=== PATIENT | female | born 1960 ===

== ENCOUNTER 2017-02-07 20:16 | Inpatient (IN) | payer MEDICAID ==
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
[2017-02-07] MEDS ORDERED: NS 1,000 ML IV ONE ×2 (20:45→22:21)
[2017-02-07] MEDS ORDERED: VANCOMYCIN HCL/NORMAL SALINE 250 ML IV ONE (21:20)
[2017-02-07] MEDS ORDERED: PIPERACILLIN/TAZO 4.5 GM/DEX 100 ML IV ONE (21:20)
--- NOTE | 2017-02-07 21:24 | CPEKG ---
Heart Rate: 83 RR Interval: 723 P-R Interval: 146 QRSD Interval: 88 QT Interval: 436 QTC Interval: 513 P [place]: 0 QRS [place]: 53 T Wave [place]: -85 EKG Severity - ABNORMAL ECG - EKG Impression: SINUS RHYTHM EKG Impression: REPOL ABNRM SUGGESTS ISCHEMIA, ANT-LAT LEADS EKG Impression: PROLONGED QT INTERVAL Electronically Signed By: Nakul Joseph 07-Feb-2017 22:55:14
[2017-02-07 21:29] LABS: % IMMATURE GRANULYOCYTES 0.6 % (0.0-1.1); ABSOLUTE IMMATURE GRANULOCYTES 0.11 10^3/uL (0.00-0.10); ADD DIFF? NO; ADD MORPH? NO; ADD SCAN? NO; ATYPICAL LYMPHOCYTE FLAG 10 (0-99); FRAGMENT RBC FLAG 0 (0-99); HEMATOCRIT 30.2 % (38.0-47.0); HEMOGLOBIN 9.8 g/dL (12.6-16.3); LEFT SHIFT FLG 10 (0-99); LIPEMIA HEMOLYSIS FLAG 80 (0-99); MEAN CELL HEMOGLOBIN 27.9 pg (27.9-34.1); MEAN CELL HEMOGLOBIN CONCENTR. 32.5 g/dL (32.4-36.7); MEAN PLATELET VOLUME 9.4 fL (8.7-11.7); PLATELET CLUMPS FLAG 20 (0-99); PLATELET COUNT 654 10^3/uL (150-400); RED BLOOD CELL COUNT 3.51 10^6/uL (4.18-5.33); RED CELL DISTRIBUTION WIDTH 14.6 % (11.5-15.2)
[2017-02-07 21:38] LABS: INR 1.47 (0.83-1.16); PROTIME(PATIENT) 17.8 SEC (12.0-15.0)
[2017-02-07 21:45] LABS: APTT 24.1 SEC (23.0-38.0)
[2017-02-07 21:47] LABS: ALANINE AMINOTRANSFERASE 42 IU/L (9-52); ALKALINE PHOSPHATASE 147 IU/L (38-126); ASPARTATE AMINOTRANSFERASE 33 IU/L (14-46); BILIRUBIN,TOTAL 1.1 mg/dL (0.1-1.4); BILIRUBIN-CONJUGATED 0.8 mg/dL (0.0-0.5); BILIRUBIN-UNCONJUGATED 0.3 mg/dL (0.0-1.1); CALCIUM 9.7 mg/dL (8.5-10.4); CARBON DIOXIDE 31 mEq/l (22-31); CHLORIDE 94 mEq/L (97-110); CREATININE 0.5 mg/dL (0.6-1.0); GLOMERULAR FILTRATION RATE > 60; GLUCOSE 101 mg/dL (70-100); MAGNESIUM 2.1 mg/dL (1.6-2.3); SODIUM 143 mEq/L (134-144); TOTAL PROTEIN 7.6 g/dL (6.3-8.2)
[2017-02-07 21:53] LABS: ANION GAP 18 mEq/L (8-16)
[2017-02-07 21:55] LABS: COLOR AMBER; LEUKOCYTE ESTERASE,URINE 3+ (NEGATIVE); NITRITE,URINE NEGATIVE (NEGATIVE)
[2017-02-07 21:59] LABS: TROPONIN I < 0.012 ng/mL (0-0.034)
[2017-02-07 22:00] LABS: POTASSIUM 2.4 mEq/L (3.5-5.2)
[2017-02-07 22:08] LABS: MUCUS 1+ /lpf (NONE-1+); WBC,URINE 50-182 /hpf (0-3)
[2017-02-07 22:15] LABS: BACTERIA 3+ /hpf (NONE SEEN)
[2017-02-07] MEDS ORDERED: PANTOPRAZOLE SODIUM 40 MG in NS 100 ML IV ONE (22:31)
[2017-02-07] MEDS: POTASSIUM Cl (KCl) 100 ML IV SCH (22:48)
[2017-02-07] MEDS ORDERED: ACETAMINOPHEN 325 MG TAB TUBE PRN (22:58)
[2017-02-07] MEDS ORDERED: clonazePAM 1 MG TAB TUBE PRN (22:58)
[2017-02-07] MEDS ORDERED: oxyCODONE IR 5 MG TAB TUBE PRN (22:58)
[2017-02-07] MEDS ORDERED: hydrOXYzine HCL 25 MG TAB TUBE PRN (22:58)
[2017-02-07] MEDS ORDERED: ONDANSETRON DISINTEGRATING 4 MG TAB TUBE PRN (22:58)
[2017-02-07] MEDS ORDERED: POTASSIUM CL 20 MEQ/15 ML UDCUP TUBE ONE (23:03)
[2017-02-07] MEDS ORDERED: IOPAMIDOL (ISOVUE 370) 100 ML BTL IV ONE (23:18)
[2017-02-08] MEDS: oxyCODONE IR 5 MG TAB TUBE SCH ×4 (00:17→21:53)
[2017-02-08] MEDS: CYCLOBENZAPRINE 10 MG TAB TUBE SCH ×2 (00:17→21:53)
[2017-02-08] MEDS: POTASSIUM Cl (KCl) 100 ML IV SCH ×2 (00:20→00:22)
[2017-02-08] MEDS: POTASSIUM Cl (KCl) 40 MEQ in NS 1,000 ML IV SCH ×3 (01:38→18:42)
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
[2017-02-08] MEDS: PIPERACILLIN/TAZO 4.5 GM/DEX 100 ML IV SCH ×3 (03:59→18:44)
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
[2017-02-08 06:00] LABS: INR 1.55 (0.83-1.16); PROTIME(PATIENT) 18.6 SEC (12.0-15.0)
[2017-02-08 06:05] LABS: % IMMATURE GRANULYOCYTES 0.8 % (0.0-1.1); ADD DIFF? NO; ADD MORPH? NO; ADD SCAN? NO; ATYPICAL LYMPHOCYTE FLAG 10 (0-99); FRAGMENT RBC FLAG 0 (0-99); HEMOGLOBIN 7.7 g/dL (12.6-16.3); LEFT SHIFT FLG 0 (0-99); LIPEMIA HEMOLYSIS FLAG 80 (0-99); MEAN CELL HEMOGLOBIN 27.9 pg (27.9-34.1); MEAN CELL HEMOGLOBIN CONCENTR. 32.1 g/dL (32.4-36.7); MEAN PLATELET VOLUME 9.4 fL (8.7-11.7); PLATELET CLUMPS FLAG 0 (0-99); PLATELET COUNT 480 10^3/uL (150-400); RED BLOOD CELL COUNT 2.76 10^6/uL (4.18-5.33); RED CELL DISTRIBUTION WIDTH 14.8 % (11.5-15.2)
[2017-02-08 06:10] LABS: ANION GAP 11 mEq/L (8-16); CALCIUM 8.3 mg/dL (8.5-10.4); CARBON DIOXIDE 26 mEq/l (22-31); CHLORIDE 106 mEq/L (97-110); CREATININE 0.6 mg/dL (0.6-1.0); GLOMERULAR FILTRATION RATE > 60; GLUCOSE 88 mg/dL (70-100); MAGNESIUM 1.9 mg/dL (1.6-2.3); SODIUM 143 mEq/L (134-144)
[2017-02-08 06:13] LABS: POTASSIUM 2.7 mEq/L (3.5-5.2)
[2017-02-08 06:20] LABS: % SATURATION 15 % (20-55); TOTAL IRON BINDING CAPACITY 203 ug/dL (260-490)
[2017-02-08] MEDS ORDERED: POTASSIUM CL 20 MEQ/15 ML UDCUP PO ONE (06:28)
[2017-02-08] MEDS: hydrOXYzine HCL 25 MG TAB TUBE SCH (08:29)
[2017-02-08] MEDS: PANTOPRAZOLE SODIUM 40 MG in NS 100 ML IV SCH ×2 (08:40→21:54)
[2017-02-08] MEDS: FLUTICASONE HFA 44 MCG MDI IH SCH ×2 (09:21→21:46)
[2017-02-08] MEDS: ENOXAPARIN 40 MG/0.4 ML SYR SC SCH (09:24)
[2017-02-08] MEDS: fentaNYL 75 MCG PATCH TD SCH (09:25)
[2017-02-08] MEDS: POLYETHYLENE GLYCOL 3350 17 GM PKT TUBE SCH ×2 (10:42→20:06)
--- NOTE | 2017-02-08 11:07 | WOCRNPDOC ---
DENY Advanced Assessment Note - Skin Integrity Problem, Advanced Assess Left Posterior Knee Scab Dressing Type: Allevyn Life Dressing Description: Clean/Dry, Intact Exudate Amount: Scant Exudate Color: Reddish/Yellow Exudate Characteristic(s): Serosanguinous Integumentary Issue Intervention: Visualized Under Dressing Lesley Wound Tissue: Intact Lesley Wound Swelling: None Wound Bed Color: Brown, Red Wound Bed Constitution: Smooth Tissue, Scab Site Measurement - Head-to-Toe Length X Width X Depth (cm): [id number] Skin Integrity Problem Comment: Linear abrasion noted to back of L knee, w/ 0.2cmx0.2cm area on lateral aspect of full-thickness injury, smooth-tissue filled, no apparent necrosis. Lesley-wound skin is intact w/ no erythema or associated swelling. Recommend applying Silvasorb gel and keeping site covered w / Allevyn. Left Abdomen Drain Site Dressing Type: ABD Pad, Gauze, Other Other Dressing Type: drain sponge Dressing Description: Saturated Exudate Amount: Excessive Exudate Color: Green, Reddish/Yellow Exudate Characteristic(s): Mucous, Serosanguinous, Thick, Other Other Exudate Characteristic(s): gastric Integumentary Issue Intervention: Barrier Cream Applied (crust w/ zinc oxide and skin prep) Lesley Wound Tissue: Raw, Denuded, Painful/Tender Lesley Wound Swelling: Mild Wound Bed Color: Red Skin Integrity Problem Comment: Intensely raw and denuded skin noted surrounding PEG tube and extending across patient's L abdomen to her L flank, consistent w/ breakdown r/t gastric contents from leaking PEG tube. Patient's tube was previously not well-secured, and upon admission external bumper was observed approx. 5 inches from skin level. This caused extensive leakage surrounding the tube onto lesley-tube skin. Tube was changed by Dr. Ewing on 02/06 , and external bumper was secured against the skin at that time. This author assessed patient this morning, cleansed skin, and applied a crust of zinc oxide powder and skin prep to act as a barrier from any additional gastric drainage. In addition, Drawtex dressing placed between PEG external bumper and skin for increased absorption, followed by ABD to prevent patient from pulling on the PEG. Wound RN will continue to follow patient. Report given to Dr. Ewing and coupon clerk Daxa.
--- NOTE | 2017-02-08 11:16 | SOAPPROG ---
SOAP Progress Note Assessment/Plan: 02/08/17 11:06 F/U consult Assessment: skin is scaring down around new(smaller) PEG tube as expected. Again the wafer was pulled away from the skin allowing leakage. Wound care has used a zinc product to protect the skin. There was a large amount of drainage from preperitoneal/abdominal wall abscess last night with PEG tube change and a smaller amount drained this AM. I could not express any more at this time. Wafer repositioned. I expect the PEG tube site to scar down around smaller tube over the next few days. Plan: Keep wafer against the abdominal wal to prevent leakage of gastric contents. Use abdominal binder to prevent her from manipulating the PEG tube. Consider use of a heating pad. (45 min, 4x/day). Consider F/u sono to gauge resolution in 48 hours. Subjective: non-communicative but tender at PEG tube site Objective: Vital Signs Temp Pulse Resp BP Pulse Ox 36.8 C 78 18 165/71 H 96 02/08/17 08:03 02/08/17 08:03 02/08/17 08:03 02/08/17 08:03 02/08/17 08:03 Microbiology 02/08/17 02:40 Gram Stain - Final Abdomen - Swab Laboratory Results 02/08/17 05:30 02/08/17 05:30 02/07/17 02/08/17 02/09/17 05:59 05:59 05:59 Intake Total 3040 Output Total 370 Balance 2670 PT 18.6 SEC (12.0-15.0) H 02/08/17 05:30 INR 1.55 (0.83-1.16) H 02/08/17 05:30 - Time Spent With Patient Time Spent With Patient: 25 Physical Exam - Physical Exam Abdomen: other (PEG tube site smaller in diameter with new tube. Could not express any further purulent fluid. Inflamed skin looks better with topical barrier TX.) ICD10 Worksheet Patient Problems: Problems Problem Status Onset Dehydration Acute Hypokalemia Acute Hypoxia Acute Open abdominal wall wound Acute PEG tube malfunction Acute Pneumonia Acute UTI (urinary tract infection) Acute
[2017-02-08] MEDS: POTASSIUM CL 20 MEQ/15 ML UDCUP TUBE SCH (12:06)
[2017-02-08 12:50] LABS: HEMATOCRIT 23.9 % (38.0-47.0); HEMOGLOBIN 7.7 g/dL (12.6-16.3)
[2017-02-08] MEDS: HYDROmorphONE/DILAUDID 2 MG/ML INJ IVP PRN ×2 (13:51→21:54)
[2017-02-08] MEDS: ONDANSETRON 4 MG/2 ML VIAL IVP PRN (13:56)
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
--- NOTE | 2017-02-08 15:58 | HOSPPROG ---
Hospitalist Progress Note Assessment/Plan: this is a 56-year-old female new to my care on 02/02 presenting with abdominal pain found to have: #Intra-abdominal abscess. - I discussed case with Dr. Ewing who changed her PEG tube and is not recommending any further debridement of the abscess this time - will continue IV antibiotics # Possible aspiration and Healthcare associated pneumonia. - swallow study ordered - continue vancomycin and Zosyn for now # Possible catheter associated urinary tract infection. Present on admission, evidenced by positive urinalysis with indwelling Tompkins catheter placing her at high risk - antibiotics as per above - follow up cultures # Severe protein calorie malnutrition. With low BMI of 17.6, patient meets aspirin criteria with proximal muscle wasting - dietary consult placed with tube feeds to be adjusted #Hypokalemia. Severe, most likely secondary to leakage from the stomach of tube feeds - replete with IV fluids, as well as liquid potassium, monitor daily magnesium and potassium levels 6. 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 Anemia. Most likely an element of chronic inflammatory disease although GI blood loss is certainly possible given the above - IV PPI twice daily - send iron studies in a.m. - continue monitor hemoglobin level Diet. Tube feeds Prophylaxis. High risk patient, Lovenox 40 Code. Do not resuscitate per advanced directive, Dr. Joseph discussed goals of care with patient's family and they elected to have IV fluids and IV antibiotics but no additional interventions at this time Disposition. Anticipated discharge uncertain this time, anticipated length stay is greater than 48 hours warranting inpatient admission status for highly complex medical issues including possible aspiration pneumonia with acute intra- abdominal abscess. Subjective: reports abdominal pain Objective: Vital Signs Temp Pulse Resp BP Pulse Ox 37.1 C 91 14 112/63 92 02/08/17 15:17 02/08/17 15:17 02/08/17 15:17 02/08/17 15:17 02/08/17 15:17 Microbiology 02/08/17 02:40 Gram Stain - Final Abdomen - Swab Laboratory Results 02/08/17 12:42 02/08/17 05:30 02/07/17 02/08/17 02/09/17 05:59 05:59 05:59 Intake Total 3040 310 Output Total 370 Balance 2670 310 PT 18.6 SEC (12.0-15.0) H 02/08/17 05:30 INR 1.55 (0.83-1.16) H 02/08/17 05:30 ct chest visualized and reviewed - Physical Exam Constitutional: chronically ill appearing, uncomfortable, unkempt, cachectic Cardiovascular: regular rate and rhythym, no murmur, rub, or gallop Respiratory: no respiratory distress, no rales or rhonchi, clear to auscultation Gastrointestinal: normoactive bowel sounds, tenderness, No guarding, No rebound ICD10 Worksheet Patient Problems: Problems Problem Status Onset Pneumonia Acute Dehydration Acute Hypoxia Acute PEG tube malfunction Acute Hypokalemia Acute Open abdominal wall wound Acute UTI (urinary tract infection) Acute
[2017-02-08] MEDS ORDERED: PROTOCOL POTASSIUM 1 DOSE MISC PRN (16:47)
[2017-02-08 18:42] LABS: POTASSIUM 4.2 mEq/L (3.5-5.2)
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
[2017-02-08] MEDS: traZODone 50 MG TAB TUBE SCH (21:54)
[2017-02-08] MEDS: VANCOMYCIN HCL/NORMAL SALINE 250 ML IV SCH (21:54)
[2017-02-09] MEDS: PIPERACILLIN/TAZO 4.5 GM/DEX 100 ML IV SCH ×4 (00:31→18:21)
[2017-02-09] MEDS: HYDROmorphONE/DILAUDID 2 MG/ML INJ IVP PRN (02:14)
[2017-02-09] MEDS: HALOPERIDOL LACT 5 MG/ML INJ IVP PRN (03:01)
[2017-02-09] MEDS: POTASSIUM Cl (KCl) 40 MEQ in NS 1,000 ML IV SCH ×2 (03:06→18:21)
[2017-02-09] MEDS: HYDROmorphONE/DILAUDID 1 MG/ML SYR IVP PRN ×3 (05:55→22:17)
[2017-02-09] MEDS: ONDANSETRON 4 MG/2 ML VIAL IVP PRN ×2 (05:57→10:47)
[2017-02-09 06:18] LABS: % IMMATURE GRANULYOCYTES 1.9 % (0.0-1.1); ABSOLUTE IMMATURE GRANULOCYTES 0.22 10^3/uL (0.00-0.10); ADD DIFF? NO; ADD MORPH? NO; ADD SCAN? NO; ATYPICAL LYMPHOCYTE FLAG 10 (0-99); FRAGMENT RBC FLAG 0 (0-99); HEMATOCRIT 23.6 % (38.0-47.0); HEMOGLOBIN 7.1 g/dL (12.6-16.3); LEFT SHIFT FLG 10 (0-99); LIPEMIA HEMOLYSIS FLAG 80 (0-99); MEAN CELL HEMOGLOBIN 27.7 pg (27.9-34.1); MEAN CELL HEMOGLOBIN CONCENTR. 30.1 g/dL (32.4-36.7); MEAN CELL VOLUME 92.2 fL (81.5-99.8); MEAN PLATELET VOLUME 9.2 fL (8.7-11.7); PLATELET CLUMPS FLAG 10 (0-99); PLATELET COUNT 434 10^3/uL (150-400); RED BLOOD CELL COUNT 2.56 10^6/uL (4.18-5.33); RED CELL DISTRIBUTION WIDTH 15.2 % (11.5-15.2)
[2017-02-09 06:58] LABS: ANION GAP 8 mEq/L (8-16); CALCIUM 8.6 mg/dL (8.5-10.4); CARBON DIOXIDE 19 mEq/l (22-31); CHLORIDE 119 mEq/L (97-110); CREATININE 0.5 mg/dL (0.6-1.0); GLOMERULAR FILTRATION RATE > 60; GLUCOSE 73 mg/dL (70-100); MAGNESIUM 1.9 mg/dL (1.6-2.3); POTASSIUM 4.9 mEq/L (3.5-5.2); SODIUM 146 mEq/L (134-144)
[2017-02-09] MEDS: PANTOPRAZOLE SODIUM 40 MG in NS 100 ML IV SCH ×2 (10:41→22:29)
[2017-02-09] MEDS: FLUTICASONE HFA 44 MCG MDI IH SCH ×3 (11:04→20:01)
[2017-02-09] MEDS: POTASSIUM CL 20 MEQ/15 ML UDCUP TUBE SCH (11:43)
[2017-02-09] MEDS: POLYETHYLENE GLYCOL 3350 17 GM PKT TUBE SCH ×2 (11:43→20:02)
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
--- NOTE | 2017-02-09 12:49 | PCMIDPN ---
Assessment/Plan: Assessment/Plan: 1. Intraabdominal abscess associated with PEG tube: - 1.8x 1.4x 1.2cm collection with phlegmon around peg tube. -Cultures still in progress. Thus far GS with yeast, and cultures with C. albicans now. -Currently on Vanco + zosyn empirically. - Will add anti-fungal coverage for now while cx in progress. Fluconazole with many DI and given her tbi injury, hesitate to use agent that may have increased shore hand dredge or barge side effects for now until more stable. -wbc slightly improved -blood cx ngtd 2. Possible Catheter associated UTI: -UA abnormal and now with greater than 100,000 GNR. - Currently on zosyn. Await cx data 3. HCAp/aspiration: - Ct chest with bilaterally lower lobe consolidation. -o2 viz nc at 3L -currently on empiric vanco + zosyn. Meds vanco 1g daily- zosyn 4.5gm q6 Subjective: Afebrile. somewhat disoriented. having some drainage around her peg tube. intially states no abd pain but not reliable historian. Objective: Vital Signs Temp Pulse Resp BP Pulse Ox 37.7 C 90 18 155/76 H 91 L 02/09/17 11:38 02/09/17 11:38 02/09/17 11:38 02/09/17 11:38 02/09/17 11:38 Microbiology 02/08/17 02:40 Gram Stain - Final Abdomen - Swab Laboratory Results 02/09/17 05:56 02/09/17 05:56 02/08/17 02/09/17 02/10/17 05:59 05:59 05:59 Intake Total 3040 4648 Output Total 370 1103 Balance 2670 3545 - Physical Exam General Appearance: alert, no apparent distress Respiratory: lungs clear Cardiac/Chest: regular rate, rhythm Extremities: No swelling Abdomen: normal bowel sounds, soft, distended (mild), tender, other (peg tube site with some maceration around it, and drainage from it. ) Skin: other (macerated around peg) ICD10 Worksheet Patient Problems: Problems Problem Status Onset Dehydration Acute Hypokalemia Acute Hypoxia Acute Open abdominal wall wound Acute PEG tube malfunction Acute Pneumonia Acute UTI (urinary tract infection) Acute
[2017-02-09] MEDS: oxyCODONE IR 5 MG TAB TUBE SCH ×3 (13:53→23:03)
[2017-02-09] MEDS: hydrOXYzine HCL 25 MG TAB TUBE SCH (13:53)
[2017-02-09] MEDS ORDERED: IOPAMIDOL (ISOVUE-300) 150 ML BTL ONE (15:42)
--- NOTE | 2017-02-09 15:46 | HOSPPROG ---
Hospitalist Progress Note Assessment/Plan: this is a 56-year-old female new to my care on 02/02 presenting with abdominal pain found to have: #Intra-abdominal abscess with nonfunctioning peg tube - will continue IV antibiotics -feeding tube per surgery # Possible aspiration and Healthcare associated pneumonia. - swallow study ordered - continue vancomycin and Zosyn for now # Possible catheter associated urinary tract infection with urine growing PSE - antibiotics as per above # Severe protein calorie malnutrition. With low BMI of 17.6, patient meets aspirin criteria with proximal muscle wasting - dietary consult placed with tube feeds to be adjusted #Hypokalemia. Severe, most likely secondary to leakage from the stomach of tube feeds - replete with IV fluids, as well as liquid potassium, monitor daily magnesium and potassium levels 6. 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 Anemia. Most likely an element of chronic inflammatory disease although GI blood loss is certainly possible given the above - IV PPI twice daily - send iron studies in a.m. - continue monitor hemoglobin level Diet. Tube feeds Prophylaxis. High risk patient, Lovenox 40 Code. Do not resuscitate per advanced directive, Dr. Joseph discussed goals of care with patient's family and they elected to have IV fluids and IV antibiotics but no additional interventions at this time Disposition. Anticipated discharge uncertain this time, anticipated length stay is greater than 48 hours warranting inpatient admission status for highly complex medical issues including possible aspiration pneumonia with acute intra- abdominal abscess. Subjective: pt is unable to answer questions Objective: Vital Signs Temp Pulse Resp BP Pulse Ox 37.7 C 90 18 155/76 H 91 L 02/09/17 11:38 02/09/17 11:38 02/09/17 11:38 02/09/17 11:38 02/09/17 11:38 Microbiology 02/08/17 02:40 Gram Stain - Final Abdomen - Swab Laboratory Results 02/09/17 05:56 02/09/17 05:56 02/08/17 02/09/17 02/10/17 05:59 05:59 05:59 Intake Total 3040 4648 Output Total 370 1103 850 Balance 2670 3545 -850 PT 18.6 SEC (12.0-15.0) H 02/08/17 05:30 INR 1.55 (0.83-1.16) H 02/08/17 05:30 - Physical Exam Constitutional: chronically ill appearing Cardiovascular: regular rate and rhythym, no murmur, rub, or gallop Respiratory: no respiratory distress, no rales or rhonchi, clear to auscultation Gastrointestinal: normoactive bowel sounds, distension, No guarding, No rebound Neurologic: other (aaox0) ICD10 Worksheet Patient Problems: Problems Problem Status Onset Pneumonia Acute Dehydration Acute Hypoxia Acute PEG tube malfunction Acute Hypokalemia Acute Open abdominal wall wound Acute UTI (urinary tract infection) Acute
[2017-02-09] MEDS: ENOXAPARIN 40 MG/0.4 ML SYR SC SCH (18:21)
[2017-02-09] MEDS: MICAFUNGIN NA 100 MG in NS 100 ML IV SCH (19:58)
[2017-02-09] MEDS: CYCLOBENZAPRINE 10 MG TAB TUBE SCH (20:36)
[2017-02-09] MEDS: traZODone 50 MG TAB TUBE SCH (20:36)
[2017-02-10] MEDS: VANCOMYCIN HCL/NORMAL SALINE 250 ML IV SCH (00:07)
[2017-02-10 01:22] LABS: POTASSIUM 4.5 mEq/L (3.5-5.2)
[2017-02-10] MEDS: PIPERACILLIN/TAZO 4.5 GM/DEX 100 ML IV SCH ×5 (02:23→23:09)
[2017-02-10 05:57] LABS: % IMMATURE GRANULYOCYTES 2.2 % (0.0-1.1); ABSOLUTE IMMATURE GRANULOCYTES 0.26 10^3/uL (0.00-0.10); ABSOLUTE NRBC COUNT 0.02 10^3/uL (0-0.01); ADD DIFF? NO; ADD MORPH? NO; ADD SCAN? NO; ATYPICAL LYMPHOCYTE FLAG 0 (0-99); FRAGMENT RBC FLAG 0 (0-99); HEMATOCRIT 23.7 % (38.0-47.0); HEMOGLOBIN 7.2 g/dL (12.6-16.3); LEFT SHIFT FLG 20 (0-99); LIPEMIA HEMOLYSIS FLAG 80 (0-99); MEAN CELL HEMOGLOBIN 27.6 pg (27.9-34.1); MEAN CELL HEMOGLOBIN CONCENTR. 30.4 g/dL (32.4-36.7); MEAN CELL VOLUME 90.8 fL (81.5-99.8); NRBC-AUTO% 0.2 % (0.0-0.2); PLATELET CLUMPS FLAG 0 (0-99); PLATELET COUNT 414 10^3/uL (150-400); RED BLOOD CELL COUNT 2.61 10^6/uL (4.18-5.33); RED CELL DISTRIBUTION WIDTH 15.2 % (11.5-15.2)
[2017-02-10 06:18] LABS: ANION GAP 11 mEq/L (8-16); CALCIUM 8.7 mg/dL (8.5-10.4); CARBON DIOXIDE 19 mEq/l (22-31); CHLORIDE 112 mEq/L (97-110); CREATININE 0.5 mg/dL (0.6-1.0); GLOMERULAR FILTRATION RATE > 60; GLUCOSE 74 mg/dL (70-100); MAGNESIUM 1.7 mg/dL (1.6-2.3); SODIUM 142 mEq/L (134-144)
[2017-02-10] MEDS: POLYETHYLENE GLYCOL 3350 17 GM PKT TUBE SCH (07:24)
[2017-02-10] MEDS: MICAFUNGIN NA 100 MG in NS 100 ML IV SCH (09:21)
[2017-02-10] MEDS: ENOXAPARIN 40 MG/0.4 ML SYR SC SCH (09:23)
[2017-02-10] MEDS: HYDROmorphONE/DILAUDID 1 MG/ML SYR IVP PRN (09:30)
--- NOTE | 2017-02-10 09:57 | WOCRNPDOC ---
WOCRN Advanced Assessment Note - Skin Integrity Problem, Advanced Assess Left Abdomen Drain Site Dressing Type: Other Other Dressing Type: Drawtex tube dressing Dressing Description: Intact Exudate Amount: Moderate Exudate Color: Yellow, Green, Reddish/Yellow Exudate Characteristic(s): Mucous, Serosanguinous, Other Other Exudate Characteristic(s): gastric Integumentary Issue Intervention: Visualized Under Dressing Michelle Wound Tissue: Raw, Weeping, Denuded, Painful/Tender Michelle Wound Swelling: Mild Wound Bed Color: Red Skin Integrity Problem Comment: Assessed PEG tube site w/ geospatial systems integratorADE Ledbetter, who reports that Dobhoff placed yesterday is not working/ leaking tube feed. Decreased leaking noted at PEG tube site this morning, though patient's enitre L abdomen and flank continues to be raw, denuded, and painful. Drawtex dressing around PEG is absorbing better that drain sponges used previously; will continue to use. Sprayed some Touchless Zinc to michelle-tube skin to cover denuded areas. Patient was clearly in pain when site was assessed, and geospatial systems integratorADE Ledbetter administered pain meds as ordered for comfort. Wound care will continue to monitor this michelle-tube breakdown, rounding again on Monday 02/12.
[2017-02-10] MEDS: PANTOPRAZOLE SODIUM 40 MG in NS 100 ML IV SCH ×2 (10:39→20:39)
[2017-02-10] MEDS: oxyCODONE IR 5 MG TAB TUBE SCH ×2 (10:53→16:48)
[2017-02-10] MEDS: hydrOXYzine HCL 25 MG TAB TUBE SCH (10:53)
[2017-02-10] MEDS: POTASSIUM CL 20 MEQ/15 ML UDCUP TUBE SCH (10:53)
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
--- NOTE | 2017-02-10 13:56 | HOSPPROG ---
Hospitalist Progress Note Assessment/Plan: This is a 56-year-old female new to my care on 02/08/17 presenting with abdominal pain found to have: #Intra-abdominal abscess with nonfunctioning peg tube - will continue IV antibiotics -will likely need a new peg tube. Dobhoff tube that was placed into the previous PEG tube is now clogged. Surgery is aware # Possible aspiration and Healthcare associated pneumonia. - swallow study ordered - continue vancomycin and Zosyn for now # Possible catheter associated urinary tract infection with urine growing PSE - antibiotics as per above # Severe protein calorie malnutrition. With low BMI of 17.6, patient meets aspirin criteria with proximal muscle wasting - dietary consult placed with tube feeds to be adjusted #Hypokalemia. 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 Most likely an element of chronic inflammatory disease although GI blood loss is certainly possible given the above - continue monitor hemoglobin level -will change protonix to daily Diet. Tube feeds Prophylaxis. High risk patient, Lovenox 40 Code. Do not resuscitate per advanced directive, Dr. Joseph discussed goals of care with patient's family and they elected to have IV fluids and IV antibiotics but no additional interventions at this time. Pt is high risk Disposition. Anticipated discharge uncertain this time, anticipated length stay is greater than 48 hours warranting inpatient admission status for highly complex medical issues including possible aspiration pneumonia with acute intra- abdominal abscess. Subjective: unable to answer questions Objective: Vital Signs Temp Pulse Resp BP Pulse Ox 37.7 C 75 18 171/80 H 98 02/10/17 12:00 02/10/17 12:00 02/10/17 12:00 02/10/17 13:20 02/10/17 12:00 Microbiology 02/08/17 02:40 Gram Stain - Final Abdomen - Swab Wound Culture - Final Kimberley Albicans Laboratory Results 02/10/17 05:33 02/10/17 05:33 02/09/17 02/10/17 02/11/17 05:59 05:59 05:59 Intake Total 4648 1084 0 Output Total 1103 1100 350 Balance 3545 -16 -350 PT 18.6 SEC (12.0-15.0) H 02/08/17 05:30 INR 1.55 (0.83-1.16) H 02/08/17 05:30 - Physical Exam Constitutional: chronically ill appearing Ears, Nose, Mouth, Throat: moist mucous membranes, ears appear normal, no oral mucosal ulcers Cardiovascular: regular rate and rhythym, no murmur, rub, or gallop Respiratory: no respiratory distress, no rales or rhonchi, clear to auscultation Gastrointestinal: normoactive bowel sounds, other (peg in place), No guarding, No rebound, No distension ICD10 Worksheet Patient Problems: Problems Problem Status Onset Pneumonia Acute Dehydration Acute Hypoxia Acute PEG tube malfunction Acute Hypokalemia Acute Open abdominal wall wound Acute UTI (urinary tract infection) Acute
[2017-02-10] MEDS: FLUTICASONE HFA 44 MCG MDI IH SCH ×2 (14:17→16:13)
--- NOTE | 2017-02-10 14:46 | PCMIDPN ---
Assessment/Plan: Patient completely refused exam, review of records & recs as below Patient with multiple possible infectious sources. Since admit, leukocytosis improving, AF since 02/08 # Intra-abdominal abscess (1.8x 1.4x 2cm with greater phlegmon measuring 8cm) with nonfunctioning peg tube, Cx of site shows kimberley --on micafungin (for concern of azole interaction with other meds) + high dose zosyn --likely needs Surgical intervention # Possible aspiration PNA, swallow study confirms aspiration --narrow antibiotics to zosyn alone # Possible catheter associated urinary tract infection with urine growing PsA --change brody if possible meds Zosyn 4.5gm IV q6h #2, Cr normal @ 0.5 micafungin 100mg IV daily #2 vancomycin 1gm IV daily #3 Subjective: "get out" Objective: Vital Signs Temp Pulse Resp BP Pulse Ox 37.7 C 75 18 171/80 H 98 02/10/17 12:00 02/10/17 12:00 02/10/17 12:00 02/10/17 13:20 02/10/17 12:00 Microbiology 02/08/17 02:40 Gram Stain - Final Abdomen - Swab Wound Culture - Final Kimberley Albicans Laboratory Results 02/10/17 05:33 02/10/17 05:33 02/09/17 02/10/17 02/11/17 05:59 05:59 05:59 Intake Total 4648 1084 0 Output Total 1103 1100 350 Balance 3545 -16 -350 - Physical Exam General Appearance: no apparent distress, cachetic ICD10 Worksheet Patient Problems: Problems Problem Status Onset Dehydration Acute Hypokalemia Acute Hypoxia Acute Open abdominal wall wound Acute PEG tube malfunction Acute Pneumonia Acute UTI (urinary tract infection) Acute
[2017-02-10] MEDS ORDERED: ACETAMINOPHEN 325 MG TAB PO PRN (16:36)
[2017-02-10] MEDS ORDERED: clonazePAM 1 MG TAB PO PRN (16:37)
[2017-02-10] MEDS ORDERED: hydrOXYzine HCL 25 MG TAB PO PRN (16:39)
[2017-02-10] MEDS ORDERED: ONDANSETRON DISINTEGRATING 4 MG TAB PO PRN (16:39)
[2017-02-10] MEDS ORDERED: oxyCODONE IR 5 MG TAB PO PRN (16:40)
[2017-02-10] MEDS: oxyCODONE IR 5 MG TAB PO SCH ×2 (17:13→22:35)
[2017-02-10 19:27] LABS: POTASSIUM 3.5 mEq/L (3.5-5.2)
[2017-02-10] MEDS: CYCLOBENZAPRINE 10 MG TAB PO SCH (20:38)
[2017-02-10] MEDS: traZODone 50 MG TAB PO SCH (20:39)
[2017-02-10] MEDS: POLYETHYLENE GLYCOL 3350 17 GM PKT PO SCH (20:39)
[2017-02-11] MEDS: HYDROmorphONE/DILAUDID 1 MG/ML SYR IVP PRN ×3 (00:19→22:42)
[2017-02-11] MEDS ORDERED: POTASSIUM CL 10 MEQ TAB PO ONE ×2 (01:07→07:33)
[2017-02-11 05:37] LABS: % IMMATURE GRANULYOCYTES 1.1 % (0.0-1.1); ABSOLUTE IMMATURE GRANULOCYTES 0.09 10^3/uL (0.00-0.10); ABSOLUTE NRBC COUNT 0.02 10^3/uL (0-0.01); ADD DIFF? NO; ADD MORPH? NO; ADD SCAN? NO; ATYPICAL LYMPHOCYTE FLAG 10 (0-99); FRAGMENT RBC FLAG 0 (0-99); HEMATOCRIT 26.1 % (38.0-47.0); HEMOGLOBIN 8.1 g/dL (12.6-16.3); LEFT SHIFT FLG 10 (0-99); LIPEMIA HEMOLYSIS FLAG 80 (0-99); MEAN CELL HEMOGLOBIN 27.5 pg (27.9-34.1); MEAN CELL VOLUME 88.5 fL (81.5-99.8); MEAN PLATELET VOLUME 8.8 fL (8.7-11.7); NRBC-AUTO% 0.2 % (0.0-0.2); PLATELET CLUMPS FLAG 0 (0-99); PLATELET COUNT 417 10^3/uL (150-400); RED BLOOD CELL COUNT 2.95 10^6/uL (4.18-5.33); RED CELL DISTRIBUTION WIDTH 15.1 % (11.5-15.2)
[2017-02-11] MEDS: PIPERACILLIN/TAZO 4.5 GM/DEX 100 ML IV SCH ×3 (05:37→19:54)
[2017-02-11 05:52] LABS: ANION GAP 11 mEq/L (8-16); CARBON DIOXIDE 22 mEq/l (22-31); CHLORIDE 106 mEq/L (97-110); CREATININE 0.6 mg/dL (0.6-1.0); GLOMERULAR FILTRATION RATE > 60; GLUCOSE 85 mg/dL (70-100); POTASSIUM 3.2 mEq/L (3.5-5.2); SODIUM 139 mEq/L (134-144)
[2017-02-11] MEDS: hydrOXYzine HCL 25 MG TAB PO SCH (09:28)
[2017-02-11] MEDS: oxyCODONE IR 5 MG TAB PO SCH ×3 (09:29→19:43)
[2017-02-11] MEDS: ENOXAPARIN 40 MG/0.4 ML SYR SC SCH ×2 (09:30→12:39)
[2017-02-11] MEDS: POTASSIUM CL 20 MEQ/15 ML UDCUP PO SCH (09:34)
[2017-02-11] MEDS: MICAFUNGIN NA 100 MG in NS 100 ML IV SCH (09:51)
[2017-02-11] MEDS: fentaNYL 75 MCG PATCH TD SCH (10:00)
[2017-02-11] MEDS: FLUTICASONE HFA 44 MCG MDI IH SCH ×2 (10:22→21:51)
[2017-02-11] MEDS: POLYETHYLENE GLYCOL 3350 17 GM PKT PO SCH ×2 (11:03→19:43)
[2017-02-11] MEDS: PANTOPRAZOLE SODIUM 40 MG in NS 100 ML IV SCH ×2 (12:29→21:30)
--- NOTE | 2017-02-11 13:11 | HOSPPROG ---
Hospitalist Progress Note Assessment/Plan: This is a 56-year-old female new to my care presenting with abdominal pain. Chart reviewed. D/W Dr Bowden. #Intra-abdominal abscess with nonfunctioning peg tube - will continue IV antibiotics -will likely need a new peg tube. Dobhoff tube that was placed into the previous PEG tube is now clogged. Surgery is aware # Possible aspiration and Healthcare associated pneumonia. - swallow study done, unsafe for unsupervised PO - continue Zosyn per ID # Possible catheter associated urinary tract infection with urine growing PSE - antibiotics as per above -order for cath to be changed # Severe protein calorie malnutrition. With low BMI of 17.6, - dietary consult unable to adjust tube feeds due to PEG tube blockage #Hypokalemia. 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 Most likely an element of chronic inflammatory disease although GI blood loss is certainly possible given the above - continue monitor hemoglobin level -will change protonix to daily Diet. Tube feeds Prophylaxis. High risk patient, Lovenox 40 Code. Do not resuscitate per advanced directive, Dr. Joseph discussed goals of care with patient's family and they elected to have IV fluids and IV antibiotics but no additional interventions at this time. Pt is high risk Disposition. Anticipated discharge uncertain this time, anticipated length stay is greater than 48 hours warranting inpatient admission status for highly complex medical issues including possible aspiration pneumonia with acute intra- abdominal abscess. Subjective: Minimal interaction. Confusion. Objective: Vital Signs Temp Pulse Resp BP Pulse Ox 37.1 C 68 14 155/79 H 98 02/11/17 11:58 02/11/17 11:58 02/11/17 11:58 02/11/17 11:58 02/11/17 11:58 Microbiology 02/08/17 02:40 Gram Stain - Final Abdomen - Swab Wound Culture - Final Kimberley Albicans Laboratory Results 02/11/17 05:19 02/11/17 05:19 02/10/17 02/11/17 02/12/17 05:59 05:59 05:59 Intake Total 1084 520 Output Total 1100 1300 Balance -16 -780 PT 18.6 SEC (12.0-15.0) H 02/08/17 05:30 INR 1.55 (0.83-1.16) H 02/08/17 05:30 - Physical Exam Constitutional: no apparent distress, not in pain, chronically ill appearing Eyes: PERRL, anicteric sclera, EOMI Ears, Nose, Mouth, Throat: moist mucous membranes, hearing normal, ears appear normal Cardiovascular: No JVD, No tachycardia, No edema Respiratory: no respiratory distress, no rales or rhonchi, reduced air movement Gastrointestinal: tenderness, No ascites, No guarding Skin: warm, no rashes or abrasions, No mottled Musculoskeletal: no joint effusions, pain with ROM, generalized weakness Neurologic: No AAOx3 Psychiatric: interacting appropriately, poor insight, poor judgement, No thought process linear ICD10 Worksheet Patient Problems: Problems Problem Status Onset Pneumonia Acute Dehydration Acute Hypoxia Acute PEG tube malfunction Acute Hypokalemia Acute Open abdominal wall wound Acute UTI (urinary tract infection) Acute
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
--- NOTE | 2017-02-11 15:48 | WOCRNPDOC ---
WOCRN Advanced Assessment Note - Skin Integrity Problem, Advanced Assess Left Abdomen Drain Site Dressing Type: Abdominal Pads, Dressing Sponge Dressing Description: Intact, Saturated Exudate Color: Clear, Yellow Exudate Characteristic(s): Mucous (gastic contents) Integumentary Issue Intervention: Dressing Changed Michelle Wound Tissue: Erythema, Raw, Denuded, Painful/Tender Michelle Wound Swelling: None Wound Bed Color: Bailey, Yellow Wound Bed Constitution: Smooth Tissue Skin Integrity Problem Comment: Patient presents with severely leaking peg tube. Michelle peg site is denuded with full thickness tissue loss to 1-2 cm circumferentially around the tube. The denuded area also dips down in a concave shape as it moves from the edges toward the tube. Drainage seems to be worse around the 4-5 oclock range as this is the most extensively denuded area. Patient will be going to the OR today or tomorrow for PEG tube replacement. In the interim the area directly adjacent to the peg tube/under the bumper, was cleaned with water and gauze, air dried, and then a layer of marathon was applied. The marathon has a blue hue. The left flank which had been coated with zinc oxide was not disturbed. Due to increased frequency of dressing changes drawtex will be substitued with dressing sponges until OR. Wound care will check on patient Monday 02/12. Daxa BOOKER was in room and assisted with care. Plan and findings discussed with Abby Beck Wound ADE.
[2017-02-11] MEDS ORDERED: NS 1,000 ML IV SCH (17:30)
[2017-02-11 19:21] LABS: POTASSIUM 3.8 mEq/L (3.5-5.2)
[2017-02-11] MEDS: traZODone 50 MG TAB PO SCH (19:43)
[2017-02-11] MEDS: CYCLOBENZAPRINE 10 MG TAB PO SCH (19:43)
[2017-02-11] MEDS: POTASSIUM Cl (KCl) 100 ML IV SCH (22:09)
[2017-02-12] MEDS: PIPERACILLIN/TAZO 4.5 GM/DEX 100 ML IV SCH ×4 (00:14→18:39)
[2017-02-12] MEDS: POTASSIUM Cl (KCl) 100 ML IV SCH ×5 (00:56→23:04)
[2017-02-12] MEDS: hydrALAZINE 20 MG/ML VIAL IVP PRN ×2 (01:25→14:38)
[2017-02-12] MEDS: HYDROmorphONE/DILAUDID 1 MG/ML SYR IVP PRN ×2 (03:00→16:20)
[2017-02-12 05:26] LABS: POTASSIUM 3.6 mEq/L (3.5-5.2)
[2017-02-12] MEDS: MICAFUNGIN NA 100 MG in NS 100 ML IV SCH (09:42)
[2017-02-12] MEDS: ENOXAPARIN 40 MG/0.4 ML SYR SC SCH (09:42)
[2017-02-12] MEDS: FLUTICASONE HFA 44 MCG MDI IH SCH ×2 (10:45→22:10)
--- NOTE | 2017-02-12 13:06 | HOSPPROG ---
Hospitalist Progress Note Assessment/Plan: This is a 56-year-old female new to my care presenting with abdominal pain. Chart reviewed. D/W Dr Hogan. #Intra-abdominal abscess with nonfunctioning peg tube -will continue IV antibiotics -possibly need a new peg tube. Surgery aware and holding off. -Dobhoff tube that was placed into the previous PEG tube is now clogged. Surgery is aware - mom consented for a new PEG if needed. # Possible aspiration and Healthcare associated pneumonia. - swallow study done, NPO - continue Zosyn per ID - change meds to IV # Possible catheter associated urinary tract infection with urine growing PSE - antibiotics as per above - cath changed # Severe protein calorie malnutrition. With low BMI of 17.6, - dietary consult unable to adjust tube feeds due to PEG tube blockage - TPN per surgery #Hypokalemia. 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 Most likely an element of chronic inflammatory disease although GI blood loss is certainly possible given the above - continue monitor hemoglobin level - protonix to daily Diet. NPO, TPN per surgery Prophylaxis. High risk patient, Lovenox 40 Code. Do not resuscitate per advanced directive, Dr. Joseph discussed goals of care with patient's family and they elected to have IV fluids and IV antibiotics but no additional interventions at this time. Pt is high risk Disposition. Anticipated discharge uncertain this time, anticipated length stay is greater than 48 hours warranting inpatient admission status for highly complex medical issues including possible aspiration pneumonia with acute intra- abdominal abscess. Subjective: Minimal interaction. Arousable. No issues. Objective: Vital Signs Temp Pulse Resp BP Pulse Ox 36.7 C 87 18 182/105 H 91 L 02/12/17 12:00 02/12/17 12:00 02/12/17 12:00 02/12/17 12:00 02/12/17 12:00 Laboratory Results 02/11/17 05:19 02/12/17 05:07 02/11/17 02/12/17 02/13/17 05:59 05:59 05:59 Intake Total 520 240 Output Total 1300 550 Balance -780 -310 PT 18.6 SEC (12.0-15.0) H 02/08/17 05:30 INR 1.55 (0.83-1.16) H 02/08/17 05:30 - Physical Exam Constitutional: not in pain, chronically ill appearing, cachectic Eyes: PERRL, anicteric sclera, EOMI Ears, Nose, Mouth, Throat: moist mucous membranes, hearing normal, ears appear normal Cardiovascular: No JVD, No tachycardia, No edema Respiratory: no respiratory distress, no rales or rhonchi, reduced air movement Gastrointestinal: tenderness, No ascites, No guarding Skin: warm, normal color, No mottled Musculoskeletal: no joint effusions, generalized weakness, No normal joint ROM Neurologic: No AAOx3 Psychiatric: not anxious, poor insight, poor judgement, poor memory, No thought process linear ICD10 Worksheet Patient Problems: Problems Problem Status Onset Pneumonia Acute Dehydration Acute Hypoxia Acute PEG tube malfunction Acute Hypokalemia Acute Open abdominal wall wound Acute UTI (urinary tract infection) Acute
[2017-02-12] MEDS: oxyCODONE IR 5 MG TAB PO SCH (14:46)
[2017-02-12] MEDS: hydrOXYzine HCL 25 MG TAB PO SCH (14:46)
[2017-02-12] MEDS: POLYETHYLENE GLYCOL 3350 17 GM PKT PO SCH (14:47)
[2017-02-12] MEDS: POTASSIUM CL 20 MEQ/15 ML UDCUP PO SCH (14:47)
[2017-02-12] MEDS: PANTOPRAZOLE SODIUM 40 MG in NS 100 ML IV SCH ×2 (15:37→20:10)
[2017-02-12] MEDS: LORazepam 2 MG/ML INJ IVP PRN (16:25)
[2017-02-12] MEDS ORDERED: ALTEPLASE 2 MG VIAL IVP PRN (16:54)
[2017-02-12] MEDS ORDERED: D10W 1,000 ML IV PRN (16:56)
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
[2017-02-12 19:13] LABS: POTASSIUM 3.6 mEq/L (3.5-5.2)
[2017-02-13] MEDS: PIPERACILLIN/TAZO 4.5 GM/DEX 100 ML IV SCH ×4 (00:19→17:43)
[2017-02-13] MEDS: POTASSIUM Cl (KCl) 100 ML IV SCH ×4 (00:37→23:03)
[2017-02-13] MEDS: LORazepam 2 MG/ML INJ IVP PRN ×4 (05:05→23:46)
[2017-02-13 06:32] LABS: % IMMATURE GRANULYOCYTES 1.1 % (0.0-1.1); ABSOLUTE IMMATURE GRANULOCYTES 0.06 10^3/uL (0.00-0.10); ADD DIFF? NO; ADD MORPH? NO; ADD SCAN? NO; ATYPICAL LYMPHOCYTE FLAG 0 (0-99); FRAGMENT RBC FLAG 0 (0-99); HEMATOCRIT 27.8 % (38.0-47.0); HEMOGLOBIN 8.7 g/dL (12.6-16.3); LEFT SHIFT FLG 10 (0-99); LIPEMIA HEMOLYSIS FLAG 80 (0-99); MEAN CELL HEMOGLOBIN 27.6 pg (27.9-34.1); MEAN CELL HEMOGLOBIN CONCENTR. 31.3 g/dL (32.4-36.7); MEAN CELL VOLUME 88.3 fL (81.5-99.8); MEAN PLATELET VOLUME 8.6 fL (8.7-11.7); PLATELET CLUMPS FLAG 0 (0-99); PLATELET COUNT 342 10^3/uL (150-400); RED BLOOD CELL COUNT 3.15 10^6/uL (4.18-5.33); RED CELL DISTRIBUTION WIDTH 15.9 % (11.5-15.2)
[2017-02-13 06:52] LABS: APTT 38.6 SEC (23.0-38.0); INR 1.46 (0.83-1.16); PROTIME(PATIENT) 17.7 SEC (12.0-15.0)
[2017-02-13 07:07] LABS: ALANINE AMINOTRANSFERASE 26 IU/L (9-52); ALBUMIN 2.6 g/dL (3.5-5.0); ALKALINE PHOSPHATASE 77 IU/L (38-126); ANION GAP 10 mEq/L (8-16); ASPARTATE AMINOTRANSFERASE 14 IU/L (14-46); BILIRUBIN,TOTAL 0.4 mg/dL (0.1-1.4); CALCIUM 8.8 mg/dL (8.5-10.4); CARBON DIOXIDE 19 mEq/l (22-31); CHLORIDE 106 mEq/L (97-110); CREATININE 0.5 mg/dL (0.6-1.0); GLOMERULAR FILTRATION RATE > 60; GLUCOSE 69 mg/dL (70-100); MAGNESIUM 1.5 mg/dL (1.6-2.3); SODIUM 135 mEq/L (134-144); TOTAL PROTEIN 5.5 g/dL (6.3-8.2)
[2017-02-13] MEDS ORDERED: D5W 1/2 NS 1,000 ML IV SCH (08:00)
[2017-02-13] MEDS ORDERED: ALTEPLASE 2 MG VIAL IVP PRN (08:31)
[2017-02-13] MEDS: PANTOPRAZOLE SODIUM 40 MG in NS 100 ML IV SCH ×2 (08:52→20:45)
[2017-02-13] MEDS: ENOXAPARIN 40 MG/0.4 ML SYR SC SCH (08:52)
--- NOTE | 2017-02-13 09:15 | PCMIDPN ---
Assessment/Plan: 1. Infected PEG tube site, query deeper infection with phlegmon noted on CT scan : Spoke at length with . At this point, she prefers a more conservative route with PICC line placement, and TPN to give the PEG a rest. She does not feel that placing the PEG at a different site at this point in time would necessarily be helpful. Therefore, will continue antibiotics as is. She will likely need a repeat CT scan in the next several days to evaluate the 8 cm phlegmon noted. 2. Complicated UTI secondary to Pseudomonas: The Tompkins has been replaced. Continue contact isolation for VRE, which is not being treated at this point in time given improvement without treatment. Subjective: No significant overnight events. Patient will need anesthesia for PICC line placement, as she is unable to fully extend her arm. This will happen today. Objective: Zosyn 4.5 g IV q.6 hours day 5 Micafungin 100 mg IV daily day 5 T-max 37.2degrees Vital Signs Temp Pulse Resp BP Pulse Ox 37.0 C 92 18 140/74 H 95 02/13/17 08:00 02/13/17 08:00 02/13/17 08:00 02/13/17 08:00 02/13/17 08:00 Laboratory Results 02/13/17 06:23 02/13/17 06:23 02/12/17 02/13/17 02/14/17 05:59 05:59 05:59 Intake Total 240 4320 Output Total 550 1625 Balance -310 -1625 4320 Blood culture negative Culture from around the PEG with Kimberley albicans Urine culture with Pseudomonas and VRE - Physical Exam General Appearance: alert, no apparent distress EENT: No scleral icterus, No thrush Respiratory: lungs clear Cardiac/Chest: regular rate, rhythm, No systolic murmur Abdomen: other (The skin around the PEG tube is mildly erythematous and macerated consistent with Kimberley. She has a fair amount of white cream coating the skin around that area. There is no fluctuance. Minimal tenderness. No erythema that I can appreciate.) Skin: No rash ICD10 Worksheet Patient Problems: Problems Problem Status Onset Dehydration Acute Hypokalemia Acute Hypoxia Acute Open abdominal wall wound Acute PEG tube malfunction Acute Pneumonia Acute UTI (urinary tract infection) Acute
[2017-02-13] MEDS: FLUTICASONE HFA 44 MCG MDI IH SCH ×2 (09:30→21:41)
--- NOTE | 2017-02-13 09:39 | HOSPPROG ---
Hospitalist Progress Note Assessment/Plan: This is a 56-year-old female new to my care presenting with abdominal pain. Today is my first encounter with the patient.Chart reviewed. D/W Dr Hogan & Dr Kam her care. # Infected PEG tube site with nonfunctioning peg tube - IV antibiotics/ Zosyn day #5, Micafungin day #5 - possibly needs a new peg tube. Holding off at this time/ Dr Hogan has ordered TPN and PICC - Dobbhoff tube that was placed into the previous PEG tube is now clogged. # Initial concern for possible aspiration and Healthcare associated pneumonia. - lung sounds CTA. On room air - swallow study done, NPO - change meds to IV # Complicated UTI secondary to pseudomass -Tompkins has been changed -contact isolation for VRE # Severe protein calorie malnutrition. With low BMI of 17.6, - TPN to be initiated today #Hypokalemia. 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 leticia - continue monitor hemoglobin level - protonix to daily # right lower ext fx cast in place not clear how long this has been present will try and contact patient's mother Diet. NPO, TPN per surgery Prophylaxis. High risk patient, Lovenox 40 Code. DNR Disposition. pending Plan: PICC to be placed/ give the peg a rest, likely need a repeat CT scan for further evaluation of phlegmon Subjective: Adia says it is tender when looking at skin around peg site. Objective: Vital Signs Temp Pulse Resp BP Pulse Ox 37.0 C 88 16 140/74 H 93 02/13/17 08:00 02/13/17 09:32 02/13/17 09:32 02/13/17 08:00 02/13/17 09:32 Laboratory Results 02/13/17 06:23 02/13/17 06:23 02/12/17 02/13/17 02/14/17 05:59 05:59 05:59 Intake Total 240 4320 Output Total 550 1625 Balance -310 -1625 4320 PT 17.7 SEC (12.0-15.0) H 02/13/17 06:23 INR 1.46 (0.83-1.16) H 02/13/17 06:23 - Physical Exam Constitutional: chronically ill appearing, uncomfortable, cachectic, No appears nourished, No not in pain Eyes: PERRL Ears, Nose, Mouth, Throat: hearing normal Cardiovascular: regular rate and rhythym Respiratory: no respiratory distress Gastrointestinal: normoactive bowel sounds Skin: warm, other (skin reddended, tender, excoriated aroung the peg site, has a small skin abrasion under left knee area, cast on rle) Musculoskeletal: muscular tenderness Neurologic: other (alert, difficulty w understanding her) ICD10 Worksheet Patient Problems: Problems Problem Status Onset Dehydration Acute Hypokalemia Acute Hypoxia Acute Open abdominal wall wound Acute PEG tube malfunction Acute Pneumonia Acute UTI (urinary tract infection) Acute
[2017-02-13] MEDS: MICAFUNGIN NA 100 MG in NS 100 ML IV SCH (10:10)
--- NOTE | 2017-02-13 12:29 | PDANEPAE ---
ANE History of Present Illness dehydration ANE Past Medical History - Cardiovascular History Hx Hypertension: No Hx Arrhythmias: No Hx Chest Pain: No - Pulmonary History Hx COPD: No Hx Asthma/Reactive Airway Disease: No Hx Recent Upper Respiratory Infection: No - Neurologic History Hx Cerebrovascular Accident: Yes - Endocrine History Hx Diabetes: No - Renal History Hx Renal Disorders: No - Liver History Hx Hepatic Disorders: No - Chronic Pain History Chronic Pain: Yes ANE Review of Systems - Exercise capacity Exercise capacity: limited by disability ANE Patient History - Allergies Allergies/Adverse Reactions: No Known Allergies Allergy (Unverified 02/07/17 20:39) - Home Medications Home Medications: Acetaminophen [Tylenol 325mg (*)] 650 mg TUBE Q6 PRN 02/07/17 [Last Taken Unknown] Amoxicillin/Clavulanate Pot [Augmentin 875 MG TAB (*)] 875 mg TUBE BID 02/07/17 [Last Taken 02/07/17 08:00] Cyclobenzaprine [Flexeril 10 MG (*)] 10 mg TUBE HS 02/07/17 [Last Taken 02/01/17 ] Fluticasone Hfa 44 Mcg [Flovent 44 MCG Hfa MDI (*)] 1 puffs IH BID 02/07/17 [ Last Taken 02/02/17] Ondansetron Odt [Zofran Odt 4 mg (*)] 4 mg TUBE Q6 PRN 02/07/17 [Last Taken Unknown] Polyethylene Glycol 3350 [Miralax 17 gm (*)] 17 gm TUBE BID 02/07/17 [Last Taken 02/02/17] clonazePAM [klonoPIN (*)] 1 mg TUBE BID PRN 02/07/17 [Last Taken Unknown] fentaNYL [Duragesic 75 MCG Patch (*)] 75 mcg TD Q72H 02/07/17 [Last Taken ] hydrOXYzine HCL [hydrOXYzine HCL (RX)] 25 mg TUBE DAILY 02/07/17 [Last Taken 02/13] hydrOXYzine HCL [hydrOXYzine HCL (RX)] 25 mg TUBE Q6H PRN 02/07/17 [Last Taken Unknown] oxyCODONE IR [Oxycodone Ir (*)] 10 mg TUBE DAILY PRN 02/07/17 [Last Taken Unknown] oxyCODONE IR [Oxycodone Ir (*)] 10 mg TUBE TID 02/07/17 [Last Taken 02/02/17] traZODone [traZODONE 50MG (*)] 50 mg TUBE HS 02/07/17 [Last Taken 02/01/17] - NPO status NPO Since - Liquids (Date): 02/12/17 NPO Since - Liquids (Time): 00:00 NPO Since - Solids (Date): 02/12/17 NPO Since - Solids (Time): 00:00 - Smoking Hx Smoking Status: Former smoker - Alcohol Use Alcohol Use: None ANE Labs/Vital Signs - Labs Result Diagrams: 02/13/17 06:23 02/13/17 06:23 - Vital Signs Blood Pressure: 140/74 Heart Rate: 88 Respiratory Rate: 16 O2 Sat (%): 93 Height: 152.4 cm Weight: 39.6 kg
[2017-02-13] MEDS ORDERED: LIDOCAINE 2% 5 ML SDV ONE (13:29)
[2017-02-13] MEDS ORDERED: fentaNYL 100 MCG/2 ML INJ ONE (13:29)
[2017-02-13] MEDS ORDERED: PROPOFOL 200 MG/20 ML VIAL ONE (13:29)
[2017-02-13] MEDS ORDERED: fentaNYL 100 MCG/2 ML INJ IVP PRN (14:23)
[2017-02-13] MEDS ORDERED: ALBUTEROL 3 ML DEYVIAL IH PRN (14:23)
[2017-02-13] MEDS ORDERED: NALOXONE HCL 0.4 MG/ML INJ IVP PRN (14:23)
--- NOTE | 2017-02-13 14:25 | POSTANESTH ---
Post Anesthetic Evaluation Cardiovascular Status: Normal, Stable Respiratory Status: Normal, Stable Level of Consciousness/Mental Status: Can Participate in Eval, Other, See Comment Pain Control: Adequate, Prn Tx Ordered Nausea/Vomiting Control: Adequate, Prn Tx Ordered Complications Possibly Related to Anesthesia: None Noted
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
[2017-02-13] MEDS: HYDROmorphONE/DILAUDID 1 MG/ML SYR IVP PRN ×2 (17:41→17:56)
[2017-02-13] MEDS: TPN 1 EA BAG IV SCH (20:53)
[2017-02-14] MEDS: PIPERACILLIN/TAZO 4.5 GM/DEX 100 ML IV SCH ×4 (00:11→17:32)
[2017-02-14] MEDS: POTASSIUM Cl (KCl) 100 ML IV SCH ×7 (01:19→23:07)
[2017-02-14] MEDS ORDERED: POTASSIUM Cl (KCl) 100 ML IV SCH (03:00)
[2017-02-14] MEDS: LORazepam 2 MG/ML INJ IVP PRN ×4 (03:57→19:51)
[2017-02-14 05:22] LABS: % IMMATURE GRANULYOCYTES 0.8 % (0.0-1.1); ABSOLUTE IMMATURE GRANULOCYTES 0.04 10^3/uL (0.00-0.10); ADD DIFF? NO; ADD MORPH? NO; ADD SCAN? NO; ATYPICAL LYMPHOCYTE FLAG 40 (0-99); FRAGMENT RBC FLAG 30 (0-99); HEMOGLOBIN 8.4 g/dL (12.6-16.3); LEFT SHIFT FLG 0 (0-99); LIPEMIA HEMOLYSIS FLAG 80 (0-99); MEAN CELL HEMOGLOBIN 28.2 pg (27.9-34.1); MEAN CELL HEMOGLOBIN CONCENTR. 32.3 g/dL (32.4-36.7); MEAN CELL VOLUME 87.2 fL (81.5-99.8); MEAN PLATELET VOLUME 8.7 fL (8.7-11.7); PLATELET CLUMPS FLAG 30 (0-99); PLATELET COUNT 440 10^3/uL (150-400); RED BLOOD CELL COUNT 2.98 10^6/uL (4.18-5.33); RED CELL DISTRIBUTION WIDTH 16.1 % (11.5-15.2)
[2017-02-14 05:35] LABS: ALANINE AMINOTRANSFERASE 25 IU/L (9-52); ALBUMIN 2.7 g/dL (3.5-5.0); ALKALINE PHOSPHATASE 78 IU/L (38-126); ANION GAP 8 mEq/L (8-16); ASPARTATE AMINOTRANSFERASE 16 IU/L (14-46); BILIRUBIN,TOTAL 0.5 mg/dL (0.1-1.4); CALCIUM 8.6 mg/dL (8.5-10.4); CARBON DIOXIDE 21 mEq/l (22-31); CHLORIDE 105 mEq/L (97-110); CREATININE 0.4 mg/dL (0.6-1.0); GLOMERULAR FILTRATION RATE > 60; GLUCOSE 126 mg/dL (70-100); MAGNESIUM 1.6 mg/dL (1.6-2.3); POTASSIUM 3.2 mEq/L (3.5-5.2); SODIUM 134 mEq/L (134-144); TOTAL PROTEIN 5.5 g/dL (6.3-8.2)
[2017-02-14 05:46] LABS: INR 1.3 (0.83-1.16); PROTIME(PATIENT) 16.2 SEC (12.0-15.0)
[2017-02-14 05:47] LABS: APTT 38.2 SEC (23.0-38.0)
[2017-02-14] MEDS: HYDROmorphONE/DILAUDID 1 MG/ML SYR IVP PRN ×2 (05:53→14:44)
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
[2017-02-14] MEDS: FLUTICASONE HFA 44 MCG MDI IH SCH ×2 (08:41→22:11)
[2017-02-14] MEDS: PANTOPRAZOLE SODIUM 40 MG in NS 100 ML IV SCH ×2 (09:16→20:28)
[2017-02-14] MEDS: NS 1,000 ML IV SCH (09:20)
[2017-02-14] MEDS: MICAFUNGIN NA 100 MG in NS 100 ML IV SCH (09:21)
[2017-02-14] MEDS: fentaNYL 75 MCG PATCH TD SCH (09:22)
[2017-02-14] MEDS: ENOXAPARIN 40 MG/0.4 ML SYR SC SCH (09:22)
--- NOTE | 2017-02-14 10:01 | HOSPPROG ---
Hospitalist Progress Note Assessment/Plan: This is a 56-year-old female new to my care presenting with abdominal pain. D/ W Dr Hogan & Dr Kam her care. # Infected PEG tube site/ (skin red and excoriated) with nonfunctioning peg tube - CT scan of abdomen on 02/07 shows abscess w surrounding phlegmon/ likely need a repeat CT of abd this week - IV antibiotics/ Zosyn day #6, Micafungin day #6 - possibly needs a new peg tube. Holding off at this time/ Dr Hogan has ordered TPN and PICC - Dobbhoff tube that was placed into the previous PEG tube is now clogged. - cont TPN (31 ml) and fluids (50 ml) # Initial concern for possible aspiration and Healthcare associated pneumonia. - lung sounds CTA. On room air - swallow study done, NPO - change meds to IV - repeat chest xray shows improvement # Complicated UTI secondary to pseudomass -Tompkins has been changed -contact isolation for VRE # Severe protein calorie malnutrition. With low BMI of 17.6, - TPN to be initiated today #Hypokalemia. 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 - continue monitor hemoglobin level - protonix to daily # right lower ext fx cast in place not clear how long this has been present Diet. NPO, TPN per surgery Prophylaxis. High risk patient, Lovenox 40 Code. DNR Disposition. pending Plan: avoid using G tube for now / to be further evaluated this week to see if it can be functional, cont TPN Subjective: Sheldon isn't complaining of pain. Objective: Vital Signs Temp Pulse Resp BP Pulse Ox 37.2 C 78 12 148/70 H 93 02/14/17 08:00 02/14/17 08:43 02/14/17 08:43 02/14/17 08:00 02/14/17 08:43 Laboratory Results 02/14/17 05:01 02/14/17 05:01 02/13/17 02/14/17 02/15/17 05:59 05:59 05:59 Intake Total 4420 1561 Output Total 1625 3400 Balance -1625 1020 1561 PT 16.2 SEC (12.0-15.0) H 02/14/17 05:01 INR 1.30 (0.83-1.16) H 02/14/17 05:01 - Physical Exam Constitutional: not in pain, chronically ill appearing, cachectic Eyes: PERRL Ears, Nose, Mouth, Throat: hearing normal Cardiovascular: regular rate and rhythym Respiratory: no respiratory distress, bronchial breath sounds (noted on anterior lung areas) Gastrointestinal: normoactive bowel sounds Skin: warm Musculoskeletal: generalized weakness Neurologic: other (alert, difficult to understand Sheldon when she speaks due to her head injury) Psychiatric: interacting appropriately ICD10 Worksheet Patient Problems: Problems Problem Status Onset Dehydration Acute Hypokalemia Acute Hypoxia Acute Open abdominal wall wound Acute PEG tube malfunction Acute Pneumonia Acute UTI (urinary tract infection) Acute
--- NOTE | 2017-02-14 10:07 | PCMIDPN ---
Assessment/Plan: 1. Infected PEG tube site, query deeper infection with phlegmon noted on CT scan : After discussion with yesterday, the following plan has been made: Patient is now on TPN after a PICC line was placed under anesthesia. Will not use the G-tube, and continue antibiotics for now with meticulous wound care in hopes of improving the infection/irritation. Dr. Hogan felt that the small pocket of fluid seen on CT most likely represented tube feed, and not abscess, per se. That being said, the patient will likely need a follow-up CT scan this week to further evaluate this area as well as the 8 cm phlegmon seen. Duration of antibiotics not clear, and will be based on clinical improvement/CT findings- perhaps 14 days. 2. Complicated UTI secondary to Pseudomonas: The Tompkins has been replaced. Continue contact isolation for VRE, which is not being treated at this point in time given clinical improvement. Subjective: No significant overnight events. Had a right PICC line placed under anesthesia yesterday. Nurse reports no diarrhea today, but did have 1 loose stool yesterday. Objective: Zosyn 4.5 g IV q.6 hours day 6 Micafungin 100 mg IV daily day 6 T-max 37 .4 Vital Signs Temp Pulse Resp BP Pulse Ox 37.2 C 78 12 148/70 H 93 02/14/17 08:00 02/14/17 08:43 02/14/17 08:43 02/14/17 08:00 02/14/17 08:43 Laboratory Results 02/14/17 05:01 02/14/17 05:01 02/13/17 02/14/17 02/15/17 05:59 05:59 05:59 Intake Total 4420 1561 Output Total 1625 3400 Balance -1625 1020 1561 No new microbiology - Physical Exam General Appearance: no apparent distress, cachetic EENT: pharynx normal, No thrush Respiratory: lungs clear Extremities: other (PICC line right upper extremity looks fine with no erythema or swelling.) Abdomen: other ( G-tube in place. Less erythema at the base. Has a fair amount of the zinc oxide on her abdomen, with some visible skin sloughing but no obvious erythema. No significant tenderness today, no fluctuance.) ICD10 Worksheet Patient Problems: Problems Problem Status Onset Dehydration Acute Hypokalemia Acute Hypoxia Acute Open abdominal wall wound Acute PEG tube malfunction Acute Pneumonia Acute UTI (urinary tract infection) Acute
[2017-02-14] MEDS: TPN 1 EA BAG IV SCH (20:28)
[2017-02-14] MEDS: HALOPERIDOL LACT 5 MG/ML INJ IVP PRN (22:20)
[2017-02-15] MEDS: POTASSIUM Cl (KCl) 100 ML IV SCH ×5 (00:12→15:07)
[2017-02-15] MEDS: PIPERACILLIN/TAZO 4.5 GM/DEX 100 ML IV SCH ×4 (01:36→17:49)
[2017-02-15 04:34] LABS: % IMMATURE GRANULYOCYTES 0.4 % (0.0-1.1); ABSOLUTE IMMATURE GRANULOCYTES 0.02 10^3/uL (0.00-0.10); ADD DIFF? NO; ADD MORPH? NO; ADD SCAN? NO; ATYPICAL LYMPHOCYTE FLAG 0 (0-99); FRAGMENT RBC FLAG 0 (0-99); HEMATOCRIT 27.3 % (38.0-47.0); HEMOGLOBIN 9.1 g/dL (12.6-16.3); LEFT SHIFT FLG 0 (0-99); LIPEMIA HEMOLYSIS FLAG 80 (0-99); MEAN CELL HEMOGLOBIN 30.1 pg (27.9-34.1); MEAN CELL HEMOGLOBIN CONCENTR. 33.3 g/dL (32.4-36.7); MEAN CELL VOLUME 90.4 fL (81.5-99.8); MEAN PLATELET VOLUME 9.2 fL (8.7-11.7); PLATELET CLUMPS FLAG 0 (0-99); PLATELET COUNT 365 10^3/uL (150-400); RED BLOOD CELL COUNT 3.02 10^6/uL (4.18-5.33); RED CELL DISTRIBUTION WIDTH 17.2 % (11.5-15.2)
[2017-02-15 04:41] LABS: INR 1.17 (0.83-1.16); PROTIME(PATIENT) 14.9 SEC (12.0-15.0)
[2017-02-15 04:42] LABS: APTT 35.3 SEC (23.0-38.0)
[2017-02-15 05:41] LABS: ALANINE AMINOTRANSFERASE 27 IU/L (9-52); ALBUMIN 2.7 g/dL (3.5-5.0); ALKALINE PHOSPHATASE 81 IU/L (38-126); ANION GAP 10 mEq/L (8-16); ASPARTATE AMINOTRANSFERASE 17 IU/L (14-46); BILIRUBIN,TOTAL 0.5 mg/dL (0.1-1.4); CALCIUM 8.7 mg/dL (8.5-10.4); CARBON DIOXIDE 22 mEq/l (22-31); CHLORIDE 106 mEq/L (97-110); CREATININE 0.4 mg/dL (0.6-1.0); GLOMERULAR FILTRATION RATE > 60; GLUCOSE 86 mg/dL (70-100); MAGNESIUM 1.7 mg/dL (1.6-2.3); POTASSIUM 3.8 mEq/L (3.5-5.2); SODIUM 138 mEq/L (134-144); TOTAL PROTEIN 5.9 g/dL (6.3-8.2); TRIGLYCERIDE 170 mg/dL (35-135)
--- NOTE | 2017-02-15 08:01 | WOCRNPDOC ---
DENY Advanced Assessment Note - Skin Integrity Problem, Advanced Assess Left Abdomen Drain Site Dressing Type: Dressing Sponge Dressing Description: Shadowed Exudate Amount: Minimal Exudate Color: Yellow, Green Exudate Characteristic(s): Clear, Stringy Integumentary Issue Intervention: Dressing Changed Michelle Wound Tissue: Erythema Wound Bed Constitution: Granulation Tissue (30%), Smooth Tissue (70%) Site Measurement - Head-to-Toe Length X Width X Depth (cm): 3 cm around 3 oclock , otherwise 1 cm circumferential to tube. Skin Integrity Problem Comment: Denuded michelle tube skin is improving slowly. Cleaning the area is much less painful for patient today. Area was cleaned with water and washcloth. Zinc oxide spray to area. Covered with drain sponge. Will increase frequency of care to TID to ensure sponge is changed out more frequently and drainage doesnt sit on skin/tissue. Jaime and Theodore RN's in room for care. Rounded two hours after initial assessment and drain sponge that had been placed was saturated and there was drainage spilling over onto patient's side. [place] was applied michelle drain site and drain sponge reapplied. Discussed possiblity of attempting to pouch site later today if drainage doesnt slow down. Will continue to communicate with staff. Left Medial Heel Pressure Injury Dressing Type: Open to Air Site Measurement - Head-to-Toe Length X Width X Depth (cm): 2x2x0 Pressure Injury Stage: Stage 1 Pressure Injury Present on Admit: No Skin Integrity Problem Comment: Heels not offloaded. This area was resting against hard cast. Offloading boots to be applied to bilateral feet at all times. Left Posterior Knee Scab Dressing Type: Open to Air Wound Bed Constitution: Healed
[2017-02-15] MEDS: PANTOPRAZOLE SODIUM 40 MG in NS 100 ML IV SCH ×2 (08:31→21:23)
[2017-02-15] MEDS: ENOXAPARIN 40 MG/0.4 ML SYR SC SCH (08:34)
--- NOTE | 2017-02-15 08:57 | HOSPPROG ---
Hospitalist Progress Note Assessment/Plan: This is a 56-year-old female presenting with abdominal pain. # abdominal wall cellulitis/phlegmon w G tube leakage (skin red and excoriated) with nonfunctioning peg tube - CT scan of abdomen on 02/07 shows abscess w surrounding phlegmon/ likely need a repeat CT of abd this week - IV antibiotics/ Zosyn day #8, Micafungin day #9 - possibly needs a new peg tube. Holding off at this time/ Dr Hogan has ordered TPN and PICC - Dobbhoff tube that was placed into the previous PEG tube is now clogged. - cont TPN (31 ml) and fluids (50 ml) # Initial concern for possible aspiration and Healthcare associated pneumonia. - lung sounds CTA. On room air - swallow study done, NPO - change meds to IV - repeat chest xray shows improvement # Complicated UTI secondary to pseudomass -Tompkins has been changed -contact isolation for VRE # Severe protein calorie malnutrition. With low BMI of 17.6, - TPN to be initiated today #Hypokalemia. 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 - continue monitor hemoglobin level - protonix to daily # right lower ext fx cast in place spoke to patient's mom/ is to be left in place till February 25 reviewed care with Jess[facility] nat instructor,/ concern for heel breakdown due to limited mobility Diet. NPO, TPN per surgery Prophylaxis. High risk patient, Lovenox 40 Code. DNR Disposition. pending Plan: avoid using G tube for now / to be further evaluated this week to see if it can be functional, cont TPN Subjective: Sheldon is more cooperative today, calmer, not c/o anything. Objective: Vital Signs Temp Pulse Resp BP Pulse Ox 36.3 C 76 16 154/87 H 98 02/15/17 08:00 02/15/17 08:00 02/15/17 08:00 02/15/17 08:00 02/15/17 08:00 Laboratory Results 02/15/17 04:00 02/15/17 05:05 02/14/17 02/15/17 02/16/17 05:59 05:59 05:59 Intake Total 4420 5187 Output Total 3400 3700 300 Balance 1020 1487 -300 PT 14.9 SEC (12.0-15.0) 02/15/17 04:00 INR 1.17 (0.83-1.16) H 02/15/17 04:00 - Physical Exam Constitutional: chronically ill appearing, cachectic Eyes: PERRL Ears, Nose, Mouth, Throat: hearing normal Cardiovascular: regular rate and rhythym Respiratory: no respiratory distress Gastrointestinal: normoactive bowel sounds, other (abd with dressing in place) Skin: warm, other (rle with cast in place) Musculoskeletal: generalized weakness Neurologic: other (alert, difficult to understand her) ICD10 Worksheet Patient Problems: Problems Problem Status Onset Dehydration Acute Hypokalemia Acute Hypoxia Acute Open abdominal wall wound Acute PEG tube malfunction Acute Pneumonia Acute UTI (urinary tract infection) Acute
[2017-02-15] MEDS: MICAFUNGIN NA 100 MG in NS 100 ML IV SCH (09:55)
--- NOTE | 2017-02-15 11:05 | PCMIDPN ---
Assessment/Plan: Assessment/Plan: * Abdominal wall cellulitis/phlegmon associated with G-tube leakage: Unclear if fluid collection represents abscess versus collection of tube feeds. Tube feeds now have been held in patient on TPN. Abdominal wall with resolving erythema. Continue micafungin and Zosyn with plans for repeat CT scan later this week to reassess status of abdominal wall findings. * Complicated UTI due to Pseudomonas aeruginosa: Present at time of admission with indwelling Tompkins catheter in place. Also grew VRE which is not being targeted given clinical improvement. At this point has completed adequate course of therapy although Zosyn will be continued for above abdominal wall findings. 02/15/17 11:02 Subjective: Continued leakage from around G-tube site. No longer receiving tube feeds, now on TPN. Objective: Vital Signs Temp Pulse Resp BP Pulse Ox 36.3 C 76 16 154/87 H 98 02/15/17 08:00 02/15/17 08:00 02/15/17 08:00 02/15/17 08:00 02/15/17 08:00 Laboratory Results 02/15/17 04:00 02/15/17 05:05 02/14/17 02/15/17 02/16/17 05:59 05:59 05:59 Intake Total 4420 5187 Output Total 3400 3700 300 Balance 1020 1487 -300 Zosyn # 7 Micafungin # 7 Laboratory Tests 02/15/17 05:05 Total Bilirubin 0.5 AST 17 ALT 27 Alkaline Phosphatase 81 Albumin 2.7 L - Physical Exam General Appearance: alert, thin, non-toxic EENT: other (Yellow coating on tongue) Extremities: No inflammation Abdomen: non-tender, other (With bilious leakage around G-tube site with maceration/erythema along left abdominal wall), No distended - Line/s RUE PICC Lines: No drainage, No erythema ICD10 Worksheet Patient Problems: Problems Problem Status Onset Dehydration Acute Hypokalemia Acute Hypoxia Acute Open abdominal wall wound Acute PEG tube malfunction Acute Pneumonia Acute UTI (urinary tract infection) Acute
[2017-02-15] MEDS: FLUTICASONE HFA 44 MCG MDI IH SCH ×2 (11:40→21:35)
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
[2017-02-15] MEDS: HYDROmorphONE/DILAUDID 1 MG/ML SYR IVP PRN ×3 (12:36→17:54)
[2017-02-15] MEDS: HALOPERIDOL LACT 5 MG/ML INJ IVP PRN (15:29)
[2017-02-15] MEDS: NS 1,000 ML IV SCH (17:53)
[2017-02-15] MEDS: TPN 1 EA BAG IV SCH (21:23)
[2017-02-16] MEDS: PIPERACILLIN/TAZO 4.5 GM/DEX 100 ML IV SCH ×4 (00:10→19:39)
[2017-02-16] MEDS: hydrALAZINE 20 MG/ML VIAL IVP PRN (02:04)
[2017-02-16] MEDS: LORazepam 2 MG/ML INJ IVP PRN ×2 (02:37→21:50)
[2017-02-16 06:16] LABS: POTASSIUM 3.4 mEq/L (3.5-5.2)
[2017-02-16] MEDS: FLUTICASONE HFA 44 MCG MDI IH SCH ×2 (09:50→22:32)
[2017-02-16] MEDS: PANTOPRAZOLE SODIUM 40 MG in NS 100 ML IV SCH ×2 (10:18→20:58)
[2017-02-16] MEDS: ENOXAPARIN 40 MG/0.4 ML SYR SC SCH (10:18)
[2017-02-16] MEDS: MICAFUNGIN NA 100 MG in NS 100 ML IV SCH (11:18)
--- NOTE | 2017-02-16 12:27 | PCMIDPN ---
Assessment/Plan: Assessment/Plan: 1. Intraabdominal abscess associated with PEG tube: - 1.8x 1.4x 1.2cm collection with phlegmon around peg tube. Infected collection vs tube feeds -cultures with C. albicans -Currently on zosyn + micafungin -wbc improved -blood cx ngtd 2. Possible Catheter associated UTI: -UA with Pseudomonas and VRE. s/p zosyn therapy Meds zosyn 4.5gm q6-02/08/17 micafungin 100mg daily- 02/09/17 Subjective: afebrile. sitting up eating with speech therapy. conversive. denies sob or cough. denies janes abd pain. Objective: Vital Signs Temp Pulse Resp BP Pulse Ox 36.5 C 80 18 137/91 H 97 02/16/17 07:50 02/16/17 09:50 02/16/17 09:50 02/16/17 07:50 02/16/17 09:50 Laboratory Results 02/15/17 04:00 02/16/17 05:55 02/15/17 02/16/17 02/17/17 05:59 05:59 05:59 Intake Total 5187 2141 Output Total 3700 2450 900 Balance 1487 309 900 - Physical Exam General Appearance: alert, no apparent distress Respiratory: lungs clear (limited exam) Cardiac/Chest: regular rate, rhythm Extremities: No swelling Abdomen: normal bowel sounds, non-tender, soft, other (peg site: peg tube with some maceration of skin around area. improved from last week. ), No distended ICD10 Worksheet Patient Problems: Problems Problem Status Onset Dehydration Acute Hypokalemia Acute Hypoxia Acute Open abdominal wall wound Acute PEG tube malfunction Acute Pneumonia Acute UTI (urinary tract infection) Acute
[2017-02-16] MEDS: POTASSIUM Cl (KCl) 100 ML IV SCH ×3 (14:25→17:23)
--- NOTE | 2017-02-16 15:59 | WOCRNPDOC ---
WOCRN Advanced Assessment Note - Skin Integrity Problem, Advanced Assess Left Abdomen Drain Site Dressing Type: ABD Pad, Gauze, Other Other Dressing Type: zinc paste, [place], Chux, towel Exudate Amount: Excessive Exudate Characteristic(s): [place]ccus Integumentary Issue Intervention: Dressing Applied (as described below) Michelle Wound Tissue: Denuded Michelle Wound Swelling: None Wound Bed Color: [place] Wound Bed Constitution: Smooth Tissue Wound Edges: Irregular Site Odor: None Site Measurement - Head-to-Toe Length X Width X Depth (cm): Approx 6 x 8 cm area of denudement Skin Integrity Problem Comment: Discussed ongoing leakage management situation with Dr. Hogan. Continuously draining fluid around currently unused PEG tube, with raw breakdown of adjacent tissue. ABDs, 4x4s, chux, abdominal binder and towel all saturated with yellow drainage. With ADE Gutiérrez assisting, and holding [place]aur tonsil tip suction and tampon to skin surface, cleaned and dried site, applied Cavilon and stoma posder crust, placed Adapt ring to immediate michelle-peg skin, covered with a Brava hydrocolloid sheet, then placed a fistula pouch over this base, threaded the peg tubing through the pouch, and snapped the top of the pouch closed. The distal end of the peg tubing was padded with a clean ABD. All care was explained to patient in real time. Additional supplies were provided.
--- NOTE | 2017-02-16 16:16 | HOSPPROG ---
Hospitalist Progress Note Assessment/Plan: This is a 56-year-old female presenting with abdominal pain. # abdominal wall cellulitis/phlegmon w G tube leakage (skin red and excoriated) with nonfunctioning peg tube - CT scan of abdomen on 02/07 shows abscess w surrounding phlegmon/ likely need a repeat CT of abd this week - IV antibiotics/ Zosyn day #9, Micafungin day #10 - possibly needs a new peg tube. Holding off at this time/ Dr Hogan has ordered TPN and PICC - Dobbhoff tube that was placed into the previous PEG tube is now clogged. - cont TPN (31 ml) and fluids (50 ml) # Initial concern for possible aspiration and Healthcare associated pneumonia. - lung sounds CTA. On room air - swallow study done, NPO - change meds to IV - repeat chest xray shows improvement # Complicated UTI secondary to pseudomonas -Tompkins has been changed -contact isolation for VRE # Severe protein calorie malnutrition. With low BMI of 17.6, - TPN #Hypokalemia. 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 - continue monitor hemoglobin level - protonix to daily # right lower ext fx cast in place spoke to patient's mom/ is to be left in place till February 25 reviewed care with Jessenia dixonac operator,/ concern for heel breakdown due to limited mobility Diet. NPO, TPN per surgery Prophylaxis. High risk patient, Lovenox 40 Code. DNR Disposition. pending Plan: avoid using G tube for now / to be further evaluated this week to see if it can be functional, cont TPN Subjective: Sheldon has no complaints/ says she's not in pain. Objective: Vital Signs Temp Pulse Resp BP Pulse Ox 36.4 C 83 18 159/109 H 98 02/16/17 15:47 02/16/17 15:47 02/16/17 15:47 02/16/17 15:47 02/16/17 15:47 Laboratory Results 02/15/17 04:00 02/16/17 05:55 02/15/17 02/16/17 02/17/17 05:59 05:59 05:59 Intake Total 5187 2141 Output Total 3700 2450 1500 Balance 1487 -309 -1500 PT 14.9 SEC (12.0-15.0) 02/15/17 04:00 INR 1.17 (0.83-1.16) H 02/15/17 04:00 - Physical Exam Constitutional: not in pain, chronically ill appearing, cachectic Eyes: PERRL Ears, Nose, Mouth, Throat: hearing normal Cardiovascular: regular rate and rhythym Respiratory: no respiratory distress Gastrointestinal: normoactive bowel sounds Skin: warm Musculoskeletal: generalized weakness Neurologic: other (alert) ICD10 Worksheet Patient Problems: Problems Problem Status Onset Dehydration Acute Hypokalemia Acute Hypoxia Acute Open abdominal wall wound Acute PEG tube malfunction Acute Pneumonia Acute UTI (urinary tract infection) Acute
[2017-02-16] MEDS: HYDROmorphONE/DILAUDID 1 MG/ML SYR IVP PRN ×2 (19:39→21:50)
[2017-02-16 20:17] LABS: POTASSIUM 3.9 mEq/L (3.5-5.2)
[2017-02-16] MEDS: TPN 1 EA BAG IV SCH (20:58)
[2017-02-16] MEDS ORDERED: POTASSIUM Cl (KCl) 50 ML IV ONE (23:30)
[2017-02-16] MEDS ORDERED: POTASSIUM CHLORIDE IV SCH (23:30)
[2017-02-17] MEDS: PIPERACILLIN/TAZO 4.5 GM/DEX 100 ML IV SCH ×4 (00:07→18:09)
[2017-02-17] MEDS: POTASSIUM Cl (KCl) 100 ML IV SCH ×2 (00:09→01:34)
[2017-02-17] MEDS: HYDROmorphONE/DILAUDID 1 MG/ML SYR IVP PRN ×7 (01:33→23:20)
[2017-02-17] MEDS: LORazepam 2 MG/ML INJ IVP PRN ×4 (02:36→21:36)
[2017-02-17 07:00] LABS: ANION GAP 12 mEq/L (8-16); CALCIUM 8.9 mg/dL (8.5-10.4); CARBON DIOXIDE 18 mEq/l (22-31); CHLORIDE 108 mEq/L (97-110); CREATININE 0.4 mg/dL (0.6-1.0); GLOMERULAR FILTRATION RATE > 60; GLUCOSE 81 mg/dL (70-100); POTASSIUM 4.1 mEq/L (3.5-5.2); SODIUM 138 mEq/L (134-144)
[2017-02-17] MEDS: PANTOPRAZOLE SODIUM 40 MG in NS 100 ML IV SCH ×2 (07:52→23:20)
--- NOTE | 2017-02-17 08:46 | HOSPPROG ---
Hospitalist Progress Note Assessment/Plan: This is a 56-year-old female presenting with abdominal pain. # abdominal wall cellulitis/phlegmon w G tube leakage (skin red and excoriated) with nonfunctioning peg tube - CT scan of abdomen on 02/07 shows abscess w surrounding phlegmon/ likely need a repeat CT of abd this week - IV antibiotics/ Zosyn day #10, Micafungin day #11 - possibly needs a new peg tube. Holding off at this time - Dobbhoff tube that was placed into the previous PEG tube is now clogged. - cont TPN (31 ml) and fluids (50 ml) # Initial concern for possible aspiration and Healthcare associated pneumonia. - lung sounds CTA. On room air - swallow study done, NPO - change meds to IV - repeat chest xray shows improvement # Complicated UTI secondary to pseudomonas -Tompkins has been changed -contact isolation for VRE # Severe protein calorie malnutrition. With low BMI of 17.6, - TPN #Hypokalemia. 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 - continue monitor hemoglobin level - protonix to daily # right lower ext fx cast in place spoke to patient's mom/ is to be left in place till February 25 reviewed care with Jessenia occasional babysitter,/ concern for heel breakdown due to limited mobility Diet. NPO, TPN per surgery Prophylaxis. High risk patient, Lovenox 40 Code. DNR Disposition. pending Plan: avoid using G tube for now / to be further evaluated this week to see if it can be functional, cont TPN/ will discuss w ID when another CT scan should be ordered. Subjective: Adia is up in the chair/ difficult to understand her/ but appears comfortable. Objective: Vital Signs Temp Pulse Resp BP Pulse Ox 36.6 C 74 16 168/80 H 99 02/17/17 00:00 02/17/17 08:00 02/17/17 08:00 02/17/17 08:00 02/17/17 08:00 Laboratory Results 02/15/17 04:00 02/17/17 06:15 02/16/17 02/17/17 02/18/17 05:59 05:59 05:59 Intake Total 2141 1181 1499 Output Total 7920 5660 Balance -309 -2169 1499 PT 14.9 SEC (12.0-15.0) 02/15/17 04:00 INR 1.17 (0.83-1.16) H 02/15/17 04:00 - Physical Exam Constitutional: chronically ill appearing, cachectic Eyes: PERRL Ears, Nose, Mouth, Throat: hearing normal Cardiovascular: regular rate and rhythym Respiratory: no respiratory distress Gastrointestinal: normoactive bowel sounds Skin: other (right lower ext in cast/ good cms/ warm) Musculoskeletal: generalized weakness Neurologic: other (alert) ICD10 Worksheet Patient Problems: Problems Problem Status Onset Dehydration Acute Hypokalemia Acute Hypoxia Acute Open abdominal wall wound Acute PEG tube malfunction Acute Pneumonia Acute UTI (urinary tract infection) Acute
[2017-02-17] MEDS: ENOXAPARIN 40 MG/0.4 ML SYR SC SCH (09:29)
[2017-02-17] MEDS: MICAFUNGIN NA 100 MG in NS 100 ML IV SCH (09:29)
[2017-02-17] MEDS: FLUTICASONE HFA 44 MCG MDI IH SCH ×2 (10:16→21:32)
[2017-02-17] MEDS ORDERED: NS 1,000 ML IV SCH (11:00)
[2017-02-17] MEDS: fentaNYL 75 MCG PATCH TD SCH (12:05)
--- NOTE | 2017-02-17 15:36 | WOCRNPDOC ---
WOCRN Advanced Assessment Note - Skin Integrity Problem, Advanced Assess Left Abdomen Drain Site Dressing Type: Dressing Sponge, Mepilex Dressing Description: Saturated Exudate Color: Yellow, Green Exudate Characteristic(s): Clear Other Exudate Characteristic(s): Gastic effulent Integumentary Issue Intervention: Dressing Changed Lesley Wound Tissue: Erythema, Denuded, Painful/Tender Lesley Wound Swelling: Mild Wound Bed Color: Linganore, Red, Yellow Wound Bed Constitution: Granulation Tissue (10%), Smooth Tissue (90%) Skin Integrity Problem Comment: Dressings around G tube were saturated despite being changed 1 hour ago. Area was cleaned with water and gauze after patient recieved IV pain medications. Bernardo ADHIKARI and Miah RN in room for care. A light coat of powder was applied to lesley wound area and a small moapa in the shape of the denuded area was cut out of a two piece coloplast SenSura Flex ostomy pouch. Also a slit was cut into the faceplate. The tube was then threaded into the pouch and the opening of the face plate was worked around bumper onto the patient's skin. Bernardo kept low suction with a thin suction tube over the area to help facilitate a dry surface. The backing of the faceplate was removed after it was placed over the bumper and then secured on the patient's abdomen and sealed to the pouch. Rechecked area 2 hours later and contents were collecting in pouch and there were no leaks in the faceplate.
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
--- NOTE | 2017-02-17 18:26 | PCMIDPN ---
Assessment/Plan: Assessment: Infected PEG tube site -Kimberley found in culture. Continuing therapy with micafungin secondary to concerns of Medicine interactions with azoles. Probable urinary tract infection. Pseudomonas and Enterococcus in culture. Patient has resolved leukocytosis on Zosyn. The Enterococcus is resistant to ampicillin and vancomycin. Would not expand coverage to include that isolate at the moment given clinical resolution. Plan: 1. Continue both Zosyn and micafungin. 2. Would try to keep duration of antibiotics short 7-10 days. 3. Follow clinical course and laboratory values. Subjective: Patient is resting in her hospital bed. No new issues overnight. We are anticipating a repeat CT scan looking for resolution of collections around the PEG tube sometime this week. Objective: Zosyn #9 Micafungin #9 Vital Signs Temp Pulse Resp BP Pulse Ox 36.7 C 79 14 168/97 H 96 02/17/17 15:34 02/17/17 15:34 02/17/17 15:34 02/17/17 15:34 02/17/17 15:34 Laboratory Results 02/15/17 04:00 02/17/17 06:15 02/16/17 02/17/17 02/18/17 05:59 05:59 05:59 Intake Total 2141 1181 2771 Output Total 2450 3350 1250 Balance -309 -2169 1521 - Physical Exam General Appearance: WD/WN, alert, no apparent distress, other (Chronic neurologically injured) Respiratory: lungs clear, normal breath sounds, No respiratory distress Cardiac/Chest: regular rate, rhythm, No tachycardia Abdomen: non-tender, soft, other (No drainage her from around PEG.) Skin: normal color, warm/dry, No rash Neuro/Psych: alert ICD10 Worksheet Patient Problems: Problems Problem Status Onset Dehydration Acute Hypokalemia Acute Hypoxia Acute Open abdominal wall wound Acute PEG tube malfunction Acute Pneumonia Acute UTI (urinary tract infection) Acute
[2017-02-17 19:44] LABS: POTASSIUM 3.8 mEq/L (3.5-5.2)
[2017-02-17] MEDS ORDERED: POTASSIUM Cl (KCl) 50 ML IV ONE (20:34)
[2017-02-17] MEDS: TPN 1 EA BAG IV SCH (21:37)
[2017-02-17] MEDS: HALOPERIDOL LACT 5 MG/ML INJ IVP PRN (23:20)
[2017-02-18] MEDS: PIPERACILLIN/TAZO 4.5 GM/DEX 100 ML IV SCH ×5 (00:41→23:24)
[2017-02-18] MEDS: PANTOPRAZOLE SODIUM 40 MG in NS 100 ML IV SCH ×2 (08:42→21:26)
[2017-02-18] MEDS: ENOXAPARIN 40 MG/0.4 ML SYR SC SCH (08:42)
[2017-02-18] MEDS: NS 1,000 ML IV SCH (08:43)
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
[2017-02-18] MEDS: MICAFUNGIN NA 100 MG in NS 100 ML IV SCH (09:52)
[2017-02-18] MEDS: FLUTICASONE HFA 44 MCG MDI IH SCH ×2 (10:29→21:19)
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
--- NOTE | 2017-02-18 14:59 | HOSPPROG ---
Hospitalist Progress Note Assessment/Plan: This is a 56-year-old female presenting with abdominal pain. # abdominal wall cellulitis/phlegmon w G tube leakage (skin red and excoriated) with nonfunctioning peg tube - CT scan of abdomen on 02/07 shows abscess w surrounding phlegmon/ likely need a repeat CT of abd this week - IV antibiotics/ Zosyn, Micafungin - new PEG per Dr Hogan...not new placement - Dobbhoff tube that was placed into the previous PEG tube is now clogged. - cont TPN (31 ml) and fluids (50 ml) # Initial concern for possible aspiration and Healthcare associated pneumonia. - lung sounds CTA. On room air - swallow study done, NPO - change meds to IV - repeat chest xray shows improvement # Complicated UTI secondary to pseudomonas -Tompkins has been changed -contact isolation for VRE # Severe protein calorie malnutrition. With low BMI of 17.6, - TPN #Hypokalemia. 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 - continue monitor hemoglobin level - protonix to daily # right lower ext fx cast in place spoke to patient's mom/ is to be left in place till February 25 reviewed care with Jessenia delivery specialist,/ concern for heel breakdown due to limited mobility Diet. NPO, TPN per surgery Prophylaxis. High risk patient, Lovenox 40 Code. DNR Disposition. pending Plan: avoid using G tube for now / to be further evaluated this week to see if it can be functional, cont TPN/ D/W Dr Hogan. Possible dc to [facility] or in rehab for further TPN and wound care. Subjective: Up in chair. No specific complaints. Objective: Vital Signs Temp Pulse Resp BP Pulse Ox 36.5 C 74 20 134/79 H 94 02/18/17 08:00 02/18/17 10:29 02/18/17 10:29 02/18/17 08:00 02/18/17 10:29 Laboratory Results 02/15/17 04:00 02/17/17 19:23 02/17/17 02/18/17 02/19/17 05:59 05:59 05:59 Intake Total 1181 3846 0 Output Total 3350 1425 1250 Balance -2169 2421 -1250 PT 14.9 SEC (12.0-15.0) 02/15/17 04:00 INR 1.17 (0.83-1.16) H 02/15/17 04:00 - Physical Exam Constitutional: chronically ill appearing, uncomfortable, cachectic Eyes: PERRL, anicteric sclera, EOMI Ears, Nose, Mouth, Throat: moist mucous membranes, hearing normal, ears appear normal Cardiovascular: No JVD, No tachycardia, No bradycardia Respiratory: no respiratory distress, no rales or rhonchi, reduced air movement Gastrointestinal: tenderness, No ascites, No guarding Skin: warm, normal color, No erythema Musculoskeletal: no joint effusions, muscular tenderness, generalized weakness Neurologic: No AAOx3 Psychiatric: not anxious, poor insight, poor judgement, poor memory ICD10 Worksheet Patient Problems: Problems Problem Status Onset VRE (vancomycin-resistant Enterococci) Acute ~02/07/17 Pneumonia Acute Dehydration Acute Hypoxia Acute PEG tube malfunction Acute Hypokalemia Acute Open abdominal wall wound Acute UTI (urinary tract infection) Acute
[2017-02-18] MEDS: TPN 1 EA BAG IV SCH (21:25)
[2017-02-18] MEDS: HYDROmorphONE/DILAUDID 1 MG/ML SYR IVP PRN (23:32)
[2017-02-19] MEDS: HALOPERIDOL LACT 5 MG/ML INJ IVP PRN (02:53)
[2017-02-19] MEDS: PIPERACILLIN/TAZO 4.5 GM/DEX 100 ML IV SCH ×4 (05:24→23:37)
[2017-02-19 06:53] LABS: ANION GAP 11 mEq/L (8-16); CALCIUM 9.5 mg/dL (8.5-10.4); CARBON DIOXIDE 21 mEq/l (22-31); CHLORIDE 107 mEq/L (97-110); CREATININE 0.5 mg/dL (0.6-1.0); GLOMERULAR FILTRATION RATE > 60; GLUCOSE 73 mg/dL (70-100); MAGNESIUM 2.1 mg/dL (1.6-2.3); POTASSIUM 4.7 mEq/L (3.5-5.2); SODIUM 139 mEq/L (134-144)
[2017-02-19] MEDS: PANTOPRAZOLE SODIUM 40 MG in NS 100 ML IV SCH ×2 (08:44→20:56)
[2017-02-19] MEDS: ENOXAPARIN 40 MG/0.4 ML SYR SC SCH (08:45)
[2017-02-19] MEDS: FLUTICASONE HFA 44 MCG MDI IH SCH ×2 (09:55→21:47)
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
[2017-02-19] MEDS: MICAFUNGIN NA 100 MG in NS 100 ML IV SCH (10:47)
--- NOTE | 2017-02-19 13:26 | HOSPPROG ---
Hospitalist Progress Note Assessment/Plan: This is a 56-year-old female presenting with abdominal pain. # abdominal wall cellulitis/phlegmon w G tube leakage (skin red and excoriated) with nonfunctioning peg tube - CT scan of abdomen on 02/07 shows abscess w surrounding phlegmon - IV antibiotics/ Zosyn, Micafungin - PEG change per Dr Hogan...not new placement - cont TPN (31 ml) and fluids (50 ml) -cont wound care # Initial concern for possible aspiration and Healthcare associated pneumonia. - lung sounds CTA. On room air - swallow study done, NPO - change meds to IV - repeat chest xray shows improvement # Complicated UTI secondary to pseudomonas -Tompkins has been changed -contact isolation for VRE # Severe protein calorie malnutrition. With low BMI of 17.6, - TPN #Hypokalemia. 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 - continue monitor hemoglobin level - protonix to daily # right lower ext fx cast in place spoke to patient's mom/ is to be left in place till February 25 reviewed care with Jessenia export specialist,/ concern for heel breakdown due to limited mobility Diet. NPO, TPN per surgery Prophylaxis. High risk patient, Lovenox 40 Code. DNR Disposition. pending consider DC to [facility] in the next 1-2 days with TPN PEG rest and monitor D/W CM Plan: avoid using G tube for now/Can eat with INTERFACE DEVELOPER recs and monitor PEG discharge /cont TPN/ Possible dc to [facility] or inpt rehab for further TPN and wound care. Subjective: No specific complaints. No pain. Objective: Vital Signs Temp Pulse Resp BP Pulse Ox 36.8 C 76 16 163/94 H 97 02/19/17 08:00 02/19/17 09:56 02/19/17 09:56 02/19/17 08:00 02/19/17 09:56 Laboratory Results 02/15/17 04:00 02/19/17 05:35 02/18/17 02/19/17 02/20/17 05:59 05:59 05:59 Intake Total 3846 1262 Output Total 1425 2805 100 Balance 2421 -1543 -100 PT 14.9 SEC (12.0-15.0) 02/15/17 04:00 INR 1.17 (0.83-1.16) H 02/15/17 04:00 - Physical Exam Constitutional: no apparent distress, chronically ill appearing, cachectic Eyes: PERRL, anicteric sclera, EOMI Ears, Nose, Mouth, Throat: moist mucous membranes, hearing normal, ears appear normal Cardiovascular: No JVD, No tachycardia, No edema Respiratory: no respiratory distress, no rales or rhonchi, reduced air movement Gastrointestinal: tenderness, No ascites, No guarding Skin: warm, normal color, erythema Musculoskeletal: no joint effusions, pain with ROM, generalized weakness Psychiatric: not anxious, poor insight, poor judgement, poor memory ICD10 Worksheet Patient Problems: Problems Problem Status Onset VRE (vancomycin-resistant Enterococci) Acute ~02/07/17 Pneumonia Acute Dehydration Acute Hypoxia Acute PEG tube malfunction Acute Hypokalemia Acute Open abdominal wall wound Acute UTI (urinary tract infection) Acute
--- NOTE | 2017-02-19 15:46 | WOCRNPDOC ---
WOCRN Advanced Assessment Note - Skin Integrity Problem, Advanced Assess Left Abdomen Drain Site Dressing Type: Other Other Dressing Type: 2 piece ostomy system (SenSura Igor) Dressing Description: Intact Exudate Amount: Minimal Exudate Color: Yellow, Green Exudate Characteristic(s): Other Other Exudate Characteristic(s): gastric contents Integumentary Issue Intervention: Visualized Under Dressing Michelle Wound Tissue: Denuded (observed only the skin beyond the borders of the ostomy wafer) Skin Integrity Problem Comment: Assessed pouch seal and integrity this afternoon. Patient currently has a two-piece, flexible ostomy appliance over her PEG site to help prevent gastric effluent from coming into contact w/ surrounding skin. Presently the appliance is intact w/ no undermining of the barrier wafer noted. Patient's skin along her left abdomen and flank is dramatically improved, now only midly denuded. Based upon this assessment, this author did not change the barrier wafer at this time. Per tire shop manager Norma, nursing has been emptying this pouch every 3 hours as ordered, and it has been very effective at keeping the gastric effluent away from the tube site, which helps preserve the seal. Additional supplies provided to nursing in case barrier begins to leak. Wound RN will follow up with patient on Wednesday morning to assess site.
[2017-02-19] MEDS: LORazepam 2 MG/ML INJ IVP PRN (15:56)
[2017-02-19] MEDS: NS 1,000 ML IV SCH (17:38)
--- NOTE | 2017-02-19 19:20 | PCMIDPN ---
Assessment/Plan: Assessment: Infected PEG tube site -Kimberley found in culture. Continuing therapy with micafungin secondary to concerns of Medicine interactions with azoles. Probable urinary tract infection. Pseudomonas and Enterococcus in culture. Patient has resolved leukocytosis on Zosyn. The Enterococcus is resistant to ampicillin and vancomycin. Would not expand coverage to include that isolate at the moment given clinical resolution. Plan: 1. Continue both Zosyn and micafungin. 2. Revision of PEG plan for next week. Will continue the Zosyn and micafungin through this time point. 3. Follow clinical course and laboratory values. 02/19/17 19:18 Subjective: Patient is resting in her hospital bed. Family is present in the room. She is having some focalizations that may be due to pain or thirst. Objective: Zosyn # 11 Micafungin # 11 Vital Signs Temp Pulse Resp BP Pulse Ox 36.3 C 82 18 162/90 H 92 02/19/17 14:00 02/19/17 14:00 02/19/17 14:00 02/19/17 14:00 02/19/17 14:00 Laboratory Results 02/15/17 04:00 02/19/17 05:35 02/18/17 02/19/17 02/20/17 05:59 05:59 05:59 Intake Total 3846 1262 2083 Output Total 1425 2805 860 Balance 2421 -1543 1223 - Physical Exam General Appearance: WD/WN, alert, apparent distress (Mild), thin, non-toxic, other (Neurologically injured) Respiratory: lungs clear, normal breath sounds, No respiratory distress Cardiac/Chest: regular rate, rhythm, No tachycardia Skin: normal color, warm/dry, No rash Neuro/Psych: alert ICD10 Worksheet Patient Problems: Problems Problem Status Onset Dehydration Acute Hypokalemia Acute Hypoxia Acute Open abdominal wall wound Acute PEG tube malfunction Acute Pneumonia Acute UTI (urinary tract infection) Acute VRE (vancomycin-resistant Enterococci) Acute ~02/07/17
[2017-02-19] MEDS: TPN 1 EA BAG IV SCH (21:01)
[2017-02-20] MEDS: PIPERACILLIN/TAZO 4.5 GM/DEX 100 ML IV SCH ×4 (05:20→23:51)
[2017-02-20] MEDS: PANTOPRAZOLE SODIUM 40 MG in NS 100 ML IV SCH ×2 (09:17→21:22)
[2017-02-20] MEDS: ENOXAPARIN 40 MG/0.4 ML SYR SC SCH (09:18)
[2017-02-20] MEDS: FLUTICASONE HFA 44 MCG MDI IH SCH ×2 (09:38→21:04)
[2017-02-20] MEDS: MICAFUNGIN NA 100 MG in NS 100 ML IV SCH (10:49)
[2017-02-20] MEDS: fentaNYL 75 MCG PATCH TD SCH (10:52)
--- NOTE | 2017-02-20 12:06 | SOAPPROG ---
SOAP Progress Note Assessment/Plan: Assessment: Attempted to help the patient's nurse change her ostomy appliance over her G tube this morning, unclear of how effective this was. Looking for placement, likely not until next week. Continue to buttress the dressing is needed, wound care to return tomorrow to help with management. Plan: 02/20/17 12:05 Objective: Vital Signs Temp Pulse Resp BP Pulse Ox 36.9 C 74 18 204/99 H 95 02/20/17 08:00 02/20/17 09:40 02/20/17 09:40 02/20/17 08:00 02/20/17 09:40 Laboratory Results 02/15/17 04:00 02/19/17 05:35 02/19/17 02/20/17 02/21/17 05:59 05:59 05:59 Intake Total 1262 2083 Output Total 2805 1760 Balance -1543 323 PT 14.9 SEC (12.0-15.0) 02/15/17 04:00 INR 1.17 (0.83-1.16) H 02/15/17 04:00 ICD10 Worksheet Patient Problems: Problems Problem Status Onset Dehydration Acute Hypokalemia Acute Hypoxia Acute Open abdominal wall wound Acute PEG tube malfunction Acute Pneumonia Acute UTI (urinary tract infection) Acute VRE (vancomycin-resistant Enterococci) Acute ~02/07/17
--- NOTE | 2017-02-20 12:16 | HOSPPROG ---
Hospitalist Progress Note Assessment/Plan: This is a 56-year-old female presenting with abdominal pain. # abdominal wall cellulitis/phlegmon w G tube leakage (skin red and excoriated) with nonfunctioning peg tube - CT scan of abdomen on 02/07 shows abscess w surrounding phlegmon - IV antibiotics/ Zosyn, Micafungin - PEG change per Dr Hogan possibly...not new placement - cont TPN (31 ml) and fluids (50 ml) -cont wound care -cont NPO # Initial concern for possible aspiration and Healthcare associated pneumonia. - lung sounds CTA. On room air - swallow study done, NPO - change meds to IV - repeat chest xray shows improvement # Complicated UTI secondary to pseudomonas -Tompkins has been changed -contact isolation for VRE # Severe protein calorie malnutrition. With low BMI of 17.6, - TPN #Hypokalemia. 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 - continue monitor hemoglobin level - protonix to daily # right lower ext fx cast in place spoke to patient's mom/ is to be left in place till February 25 reviewed care with Jessenia cargo service agent,/ concern for heel breakdown due to limited mobility Diet. NPO, TPN per surgery Prophylaxis. High risk patient, Lovenox 40 Code. DNR Disposition. pending consider DC to [place] in the next 1-2 days with TPN PEG rest and monitor D/W CM and Dr Evans Plan: avoid using G tube for now/NPO/cont TPN/ Possible dc to [facility] for further TPN and wound care. Subjective: No issues. Objective: Vital Signs Temp Pulse Resp BP Pulse Ox 36.9 C 74 18 204/99 H 95 02/20/17 08:00 02/20/17 09:40 02/20/17 09:40 02/20/17 08:00 02/20/17 09:40 Laboratory Results 02/15/17 04:00 02/19/17 05:35 02/19/17 02/20/17 02/21/17 05:59 05:59 05:59 Intake Total 1262 2083 Output Total 2805 1760 Balance -1543 323 PT 14.9 SEC (12.0-15.0) 02/15/17 04:00 INR 1.17 (0.83-1.16) H 02/15/17 04:00 - Physical Exam Constitutional: not in pain, chronically ill appearing, cachectic Eyes: PERRL, anicteric sclera, EOMI Ears, Nose, Mouth, Throat: moist mucous membranes, hearing normal, ears appear normal Cardiovascular: No JVD, No tachycardia, No bradycardia Respiratory: no respiratory distress, no rales or rhonchi, reduced air movement Gastrointestinal: tenderness, No ascites, No guarding Skin: warm, normal color, erythema Musculoskeletal: no joint effusions, pain with ROM, generalized weakness Neurologic: weakness Psychiatric: not anxious, poor insight, poor judgement, poor memory ICD10 Worksheet Patient Problems: Problems Problem Status Onset VRE (vancomycin-resistant Enterococci) Acute ~02/07/17 Pneumonia Acute Dehydration Acute Hypoxia Acute PEG tube malfunction Acute Hypokalemia Acute Open abdominal wall wound Acute UTI (urinary tract infection) Acute
[2017-02-20] MEDS: LORazepam 2 MG/ML INJ IVP PRN (15:34)
[2017-02-20] MEDS: NS 1,000 ML IV SCH (18:13)
[2017-02-20] MEDS: TPN 1 EA BAG IV SCH (21:22)
[2017-02-21] MEDS: hydrALAZINE 20 MG/ML VIAL IVP PRN ×2 (00:18→18:38)
[2017-02-21] MEDS: LORazepam 2 MG/ML INJ IVP PRN ×3 (05:08→15:37)
[2017-02-21] MEDS: PIPERACILLIN/TAZO 4.5 GM/DEX 100 ML IV SCH ×3 (05:10→18:24)
[2017-02-21 05:38] LABS: MAGNESIUM 2.6 mg/dL (1.6-2.3); POTASSIUM 5.8 mEq/L (3.5-5.2)
[2017-02-21] MEDS: FLUTICASONE HFA 44 MCG MDI IH SCH ×2 (08:40→21:44)
[2017-02-21] MEDS: MICAFUNGIN NA 100 MG in NS 100 ML IV SCH (08:58)
[2017-02-21] MEDS: ENOXAPARIN 40 MG/0.4 ML SYR SC SCH (09:03)
[2017-02-21 09:40] LABS: MAGNESIUM 2.1 mg/dL (1.6-2.3); POTASSIUM 3.3 mEq/L (3.5-5.2)
[2017-02-21] MEDS: PANTOPRAZOLE SODIUM 40 MG in NS 100 ML IV SCH ×2 (10:29→20:23)
[2017-02-21] MEDS: POTASSIUM Cl (KCl) 100 ML IV SCH ×3 (11:20→14:27)
--- NOTE | 2017-02-21 12:22 | HOSPPROG ---
Hospitalist Progress Note Assessment/Plan: This is a 56-year-old female presenting with abdominal pain. # abdominal wall cellulitis/phlegmon w G tube leakage (skin red and excoriated) with nonfunctioning peg tube - CT scan of abdomen on 02/07 shows abscess w surrounding phlegmon - IV antibiotics/ Zosyn, Micafungin - PEG change per Dr Hogan possibly...not new placement - cont TPN (31 ml) and fluids (50 ml) -cont wound care -cont NPO and PEG rest # Initial concern for possible aspiration and Healthcare associated pneumonia. - lung sounds CTA. On room air - swallow study done, NPO - change meds to IV - repeat chest xray shows improvement # Complicated UTI secondary to pseudomonas -Tompkins has been changed -contact isolation for VRE # Severe protein calorie malnutrition. With low BMI of 17.6, - TPN #Hypokalemia. 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 - continue monitor hemoglobin level - protonix to daily # right lower ext fx cast in place spoke to patient's mom/ is to be left in place till February 25 reviewed care with Jessenia wardrobe custodian,/ concern for heel breakdown due to limited mobility Diet. NPO, TPN per surgery Prophylaxis. High risk patient, Lovenox 40 Code. DNR Disposition. pending DC to [facility] in am with TPN if they are able to get the TPN and if her BP is controlled better without IV meds PEG rest and monitor avoid using G tube for now/NPO/cont TPN wound care Subjective: Up in the chair. Confused. No verbal interaction. Objective: Vital Signs Temp Pulse Resp BP Pulse Ox 37.4 C 83 18 153/86 H 97 02/21/17 08:00 02/21/17 08:00 02/21/17 08:00 02/21/17 08:00 02/21/17 08:00 Laboratory Results 02/15/17 04:00 02/21/17 09:10 02/20/17 02/21/1717 05:59 05:59 05:59 Intake Total 2083 1260 608 Output Total 0440 2130 50 Balance 323 -870 558 PT 14.9 SEC (12.0-15.0) 02/15/17 04:00 INR 1.17 (0.83-1.16) H 02/15/17 04:00 - Physical Exam Constitutional: chronically ill appearing, cachectic Eyes: PERRL, anicteric sclera, EOMI Ears, Nose, Mouth, Throat: moist mucous membranes, ears appear normal Cardiovascular: No JVD, No edema Respiratory: no respiratory distress, reduced air movement Gastrointestinal: No tenderness, No ascites Skin: warm, erythema, induration Musculoskeletal: generalized weakness, No normal joint ROM Neurologic: No AAOx3 Psychiatric: not anxious, poor insight, poor judgement, poor memory ICD10 Worksheet Patient Problems: Problems Problem Status Onset VRE (vancomycin-resistant Enterococci) Acute ~02/07/17 Pneumonia Acute Dehydration Acute Hypoxia Acute PEG tube malfunction Acute Hypokalemia Acute Open abdominal wall wound Acute UTI (urinary tract infection) Acute
--- NOTE | 2017-02-21 12:35 | WOCRNPDOC ---
WOCRN Advanced Assessment Note - Skin Integrity Problem, Advanced Assess Left Abdomen Drain Site Dressing Type: Other Other Dressing Type: SenSura Flex 2 piece ostomy appliance Dressing Description: Intact Exudate Amount: Moderate Exudate Color: Green (gastric) Exudate Characteristic(s): Clear Integumentary Issue Intervention: Dressing Changed (ostomy pouch change) Lesley Wound Tissue: Denuded Lesley Wound Swelling: Moderate Wound Bed Color: Red Wound Bed Constitution: Smooth Tissue Skin Integrity Problem Comment: Assessed pouching system this afternoon at the bedside. Per nursing report, there was difficulty w/ pouching system yesterday, with documented repeated leaks of barrier system. Upon assessment today, barrier wafer is intact w/ no undermining evident. Pouch had been reinforced w/ tape along margins; this was changed out to assess for leaks, and a new pouch was applied. There continues to be moderate gastric effluent in the pouch, w/ ongoing orders to empty q3 to prevent back flow of gastric effluent onto barrier. While this system does not entirely prevent effluent from coming into contact w/ lesley-tube skin, the skin extending out from beyond the barrier is dramatically improved and healing. Previously patient's entire L side was raw, weeping, and denuded; presently, these areas are healing and mostly resolved. This site will continue to be challenging as long as existing PEG remains in place. Wound RN Jessenia will round on patient tomorrow for ongoing assessment. Report given to reaming machine operator for plastic Haile.
--- NOTE | 2017-02-21 15:57 | SOAPPROG ---
SOAP Progress Note Assessment/Plan: Assessment: Dressings placed yesterday actually held and did not leak! Abby from wound care assessed today and redressed apropriately. Drainage slowing. May plan to change G tube this week. Placement early this week. Plan: 02/20/17 12:05 02/21/17 15:56 Objective: Vital Signs Temp Pulse Resp BP Pulse Ox 37.4 C 83 18 153/86 H 97 02/21/17 08:00 02/21/17 08:00 02/21/17 08:00 02/21/17 08:00 02/21/17 08:00 Laboratory Results 02/15/17 04:00 02/21/17 09:10 02/20/17 02/21/17 02/22/17 05:59 05:59 05:59 Intake Total 2083 1260 608 Output Total 1760 2130 50 Balance 323 -870 558 PT 14.9 SEC (12.0-15.0) 02/15/17 04:00 INR 1.17 (0.83-1.16) H 02/15/17 04:00 ICD10 Worksheet Patient Problems: Problems Problem Status Onset Dehydration Acute Hypokalemia Acute Hypoxia Acute Open abdominal wall wound Acute PEG tube malfunction Acute Pneumonia Acute UTI (urinary tract infection) Acute VRE (vancomycin-resistant Enterococci) Acute ~02/07/17
[2017-02-21] MEDS: HALOPERIDOL LACT 5 MG/ML INJ IVP PRN (20:23)
[2017-02-21] MEDS: TPN 1 EA BAG IV SCH (20:23)
[2017-02-22] MEDS: PIPERACILLIN/TAZO 4.5 GM/DEX 100 ML IV SCH ×4 (00:39→17:46)
[2017-02-22] MEDS: HALOPERIDOL LACT 5 MG/ML INJ IVP PRN ×3 (04:19→17:50)
[2017-02-22 04:55] LABS: % IMMATURE GRANULYOCYTES 0.7 % (0.0-1.1); ABSOLUTE IMMATURE GRANULOCYTES 0.03 10^3/uL (0.00-0.10); ADD DIFF? NO; ADD MORPH? NO; ADD SCAN? NO; ATYPICAL LYMPHOCYTE FLAG 0 (0-99); FRAGMENT RBC FLAG 0 (0-99); HEMATOCRIT 25.9 % (38.0-47.0); HEMOGLOBIN 8.2 g/dL (12.6-16.3); LEFT SHIFT FLG 0 (0-99); LIPEMIA HEMOLYSIS FLAG 80 (0-99); MEAN CELL HEMOGLOBIN 28.5 pg (27.9-34.1); MEAN CELL HEMOGLOBIN CONCENTR. 31.7 g/dL (32.4-36.7); MEAN CELL VOLUME 89.9 fL (81.5-99.8); MEAN PLATELET VOLUME 9.4 fL (8.7-11.7); PLATELET CLUMPS FLAG 0 (0-99); PLATELET COUNT 265 10^3/uL (150-400); RED BLOOD CELL COUNT 2.88 10^6/uL (4.18-5.33); RED CELL DISTRIBUTION WIDTH 19.1 % (11.5-15.2)
[2017-02-22 05:05] LABS: APTT 35.4 SEC (23.0-38.0); INR 1.09 (0.83-1.16)
[2017-02-22 05:06] LABS: ALANINE AMINOTRANSFERASE 39 IU/L (9-52); ALBUMIN 2.7 g/dL (3.5-5.0); ALKALINE PHOSPHATASE 117 IU/L (38-126); ANION GAP 9 mEq/L (8-16); ASPARTATE AMINOTRANSFERASE 30 IU/L (14-46); BILIRUBIN,TOTAL 0.5 mg/dL (0.1-1.4); CALCIUM 8.6 mg/dL (8.5-10.4); CARBON DIOXIDE 19 mEq/l (22-31); CHLORIDE 107 mEq/L (97-110); CREATININE 0.4 mg/dL (0.6-1.0); GLOMERULAR FILTRATION RATE > 60; GLUCOSE 69 mg/dL (70-100); MAGNESIUM 1.8 mg/dL (1.6-2.3); POTASSIUM 3.5 mEq/L (3.5-5.2); SODIUM 135 mEq/L (134-144); TOTAL PROTEIN 5.8 g/dL (6.3-8.2); TRIGLYCERIDE 147 mg/dL (35-135)
[2017-02-22] MEDS: PANTOPRAZOLE SODIUM 40 MG in NS 100 ML IV SCH ×2 (08:24→20:25)
[2017-02-22] MEDS: ENOXAPARIN 40 MG/0.4 ML SYR SC SCH (08:24)
[2017-02-22] MEDS: MICAFUNGIN NA 100 MG in NS 100 ML IV SCH (10:12)
[2017-02-22] MEDS: FLUTICASONE HFA 44 MCG MDI IH SCH ×2 (11:01→21:53)
--- NOTE | 2017-02-22 14:14 | WOCRNPDOC ---
WOCRN Advanced Assessment Note - Skin Integrity Problem, Advanced Assess Left Abdomen Drain Site Other Dressing Type: Ostomy Pouch Dressing Description: Not Intact Other Exudate Characteristic(s): Gastric juices Integumentary Issue Intervention: Dressing Changed, Dressing Initialed & Dated Michelle Wound Tissue: Erythema, Denuded (to 3 cm at 5 oclock) Wound Bed Color: [place] Wound Bed Constitution: Smooth Tissue Site Measurement - Head-to-Toe Length X Width X Depth (cm): 1.5x1x0.2 Skin Integrity Problem Comment: Faceplate was undermined from approx 4 to 6 oclock on inspection. Michelle G tube skin mostly healed, however there is a new area of denuded skin at 5 oclock, where the contents had pooled under the mouth of the faceplate. Gastric content continues to leak without any apparent change in quantity around existing tube. Pouching the area indefinitly is the best solution to drainage mangement. Pouch will need to be changed MWF preemptively to avoid leaking issues. Staff nursing will need to observe pouch and wafer change and begin to perform it independently from wound care.
--- NOTE | 2017-02-22 15:20 | HOSPPROG ---
Hospitalist Progress Note Assessment/Plan: This is a 56-year-old female presenting with abdominal pain. # abdominal wall cellulitis/phlegmon w G tube leakage (skin red and excoriated) with nonfunctioning peg tube - CT scan of abdomen on 02/07 shows abscess w surrounding phlegmon - IV antibiotics/ Zosyn, Micafungin - PEG change per Dr Hogan possibly...not new placement - cont TPN (31 ml) and fluids (50 ml) -cont wound care -cont NPO and PEG rest -will discuss w surgery about peg change # Initial concern for possible aspiration and Healthcare associated pneumonia. - lung sounds CTA. On room air - swallow study done, NPO - change meds to IV - repeat chest xray shows improvement # Complicated UTI secondary to pseudomonas -Tompkins has been changed -contact isolation for VRE # Severe protein calorie malnutrition. 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 - due to acute illness - protonix to daily # right lower ext fx cast in place/left in place till February 25 Diet. NPO, TPN per surgery Prophylaxis. High risk patient, Lovenox 40 Subjective: Adia has no complaints. Objective: Vital Signs Temp Pulse Resp BP Pulse Ox 36.5 C 72 16 157/91 H 98 02/22/17 15:16 02/22/17 15:16 02/22/17 15:16 02/22/17 15:16 02/22/17 15:16 Laboratory Results 02/22/17 04:30 02/22/17 04:30 02/21/17 02/22/17 02/23/17 05:59 05:59 05:59 Intake Total 1260 3255 Output Total 2130 1675 750 Balance -870 1580 -750 PT 14.0 SEC (12.0-15.0) 02/22/17 04:30 INR 1.09 (0.83-1.16) 02/22/17 04:30 - Physical Exam Constitutional: chronically ill appearing, cachectic Eyes: PERRL Ears, Nose, Mouth, Throat: hearing normal Cardiovascular: regular rate and rhythym Respiratory: no respiratory distress Gastrointestinal: normoactive bowel sounds Skin: warm Musculoskeletal: generalized weakness Psychiatric: interacting appropriately, other (alert) ICD10 Worksheet Patient Problems: Problems Problem Status Onset Dehydration Acute Hypokalemia Acute Hypoxia Acute Open abdominal wall wound Acute PEG tube malfunction Acute Pneumonia Acute UTI (urinary tract infection) Acute VRE (vancomycin-resistant Enterococci) Acute ~02/07/17
[2017-02-22] MEDS: TPN 1 EA BAG IV SCH (20:24)
[2017-02-22] MEDS: hydrALAZINE 20 MG/ML VIAL IVP PRN (20:34)
[2017-02-23] MEDS: HALOPERIDOL LACT 5 MG/ML INJ IVP PRN ×2 (00:31→06:17)
[2017-02-23] MEDS: PIPERACILLIN/TAZO 4.5 GM/DEX 100 ML IV SCH ×5 (00:32→23:50)
[2017-02-23] MEDS: hydrALAZINE 20 MG/ML VIAL IVP PRN (08:16)
[2017-02-23] MEDS: PANTOPRAZOLE SODIUM 40 MG in NS 100 ML IV SCH ×2 (08:17→21:02)
[2017-02-23] MEDS: ENOXAPARIN 40 MG/0.4 ML SYR SC SCH (08:17)
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
[2017-02-23] MEDS: fentaNYL 75 MCG PATCH TD SCH (09:18)
[2017-02-23] MEDS: MICAFUNGIN NA 100 MG in NS 100 ML IV SCH (09:18)
[2017-02-23] MEDS: FLUTICASONE HFA 44 MCG MDI IH SCH ×2 (09:38→20:16)
[2017-02-23 10:29] LABS: ANION GAP 14 mEq/L (8-16); CALCIUM 9.1 mg/dL (8.5-10.4); CARBON DIOXIDE 17 mEq/l (22-31); CHLORIDE 107 mEq/L (97-110); CREATININE 0.4 mg/dL (0.6-1.0); GLOMERULAR FILTRATION RATE > 60; GLUCOSE 116 mg/dL (70-100); SODIUM 138 mEq/L (134-144)
--- NOTE | 2017-02-23 11:07 | WOCRNPDOC ---
WOCRN Advanced Assessment Note - Skin Integrity Problem, Advanced Assess Left Abdomen Drain Site Other Dressing Type: ostomy appliance Exudate Amount: Moderate Other Exudate Characteristic(s): Gastic juice Integumentary Issue Intervention: Dressing Changed Michelle Wound Tissue: Erythema, Denuded Wound Bed Constitution: Smooth Tissue Skin Integrity Problem Comment: Tape had been placed from 12 to 6 oclock. Upon inspection it was apparent that the gastric contents had leaked/undermined the edges of the wafer and it needed to be changed. When wafer was removed a large area of moderately denuded skin was found as the gastric contents had been sitting under the wafer on the skin for a period of time. Also wafer was not intact at 4 oclock. Reinforced with [place] BOOKER and TRACIE Hector that wafer must be changed adam when leaking is noticed and it should not be reinforced otherwise the skin will continue to breakdown and pouching will become more and more difficult. Wafer was removed with adhesive releaser. Stoma powder applied over denuded area. New wafer and pouch were placed. Tawny HODGES RN assisted with care and suction. Patient repositioned on her side. No breakdown on her sacrum/ coccyx noted. Wound care will round again 02/24. Left Medial Heel Pressure Injury Michelle Wound Tissue: Blanching Wound Bed Constitution: Healed
[2017-02-23] MEDS ORDERED: POTASSIUM Cl (KCl) 50 ML IV SCH (12:12)
[2017-02-23] MEDS: POTASSIUM Cl (KCl) 100 ML IV SCH ×4 (13:02→16:34)
--- NOTE | 2017-02-23 15:24 | HOSPPROG ---
Hospitalist Progress Note Assessment/Plan: This is a 56-year-old female presenting with abdominal pain. # abdominal wall cellulitis/phlegmon w G tube leakage (skin red and excoriated) with nonfunctioning peg tube - CT scan of abdomen on 02/07 shows abscess w surrounding phlegmon - IV antibiotics/ Zosyn, Micafungin - PEG change per Dr Hogan possibly...not new placement - cont TPN (31 ml) and fluids (50 ml) -cont wound care -cont NPO and PEG rest -Dr Hogan ordered tube feeds/ low amount to see if patient tolerates # Initial concern for possible aspiration and Healthcare associated pneumonia. - lung sounds CTA. On room air - swallow study done, NPO - change meds to IV - repeat chest xray shows improvement # Complicated UTI secondary to pseudomonas -Tompkins has been changed -contact isolation for VRE # Severe protein calorie malnutrition. 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 - due to acute illness - protonix to daily # right lower ext fx cast in place/left in place till February 25 Diet. NPO, TPN per surgery Prophylaxis. High risk patient, Lovenox 40 Subjective: Sheldon has no complaints. Objective: Vital Signs Temp Pulse Resp BP Pulse Ox 37.4 C 85 16 162/74 H 92 02/23/17 07:28 02/23/17 13:06 02/23/17 13:06 02/23/17 13:06 02/23/17 13:06 Laboratory Results 02/22/17 04:30 02/23/17 09:34 02/22/17 02/23/17 02/24/17 05:59 05:59 05:59 Intake Total 3255 1335 1757 Output Total 1675 1750 Balance 1580 -415 1757 PT 14.0 SEC (12.0-15.0) 02/22/17 04:30 INR 1.09 (0.83-1.16) 02/22/17 04:30 - Physical Exam Constitutional: chronically ill appearing, cachectic Eyes: PERRL Ears, Nose, Mouth, Throat: hearing normal Cardiovascular: regular rate and rhythym Respiratory: no respiratory distress Gastrointestinal: normoactive bowel sounds Skin: warm Neurologic: other (alert) Psychiatric: other (difficult to understand her/ nods her head and watches me when I'm evaluating her) ICD10 Worksheet Patient Problems: Problems Problem Status Onset Dehydration Acute Hypokalemia Acute Hypoxia Acute Open abdominal wall wound Acute PEG tube malfunction Acute Pneumonia Acute UTI (urinary tract infection) Acute VRE (vancomycin-resistant Enterococci) Acute ~02/07/17
[2017-02-23 18:53] LABS: POTASSIUM 4.1 mEq/L (3.5-5.2)
[2017-02-23] MEDS: TPN 1 EA BAG IV SCH (21:03)
--- NOTE | 2017-02-24 01:59 | HOSPPROG ---
Hospitalist Progress Note Assessment/Plan: Called by RN for change in mental status. h/o TBI. Per RN, normally will say few words, track with eyes PE BP 178/80 Gen: cachetic, nonverbal HEENT: PERRLA CV: RRR Lungs: CTA, ant GI: Gtube in place [place]:upper extrem rigidity Neuro: nonverbal, not tracking, grimace with extension of arms #Acute on chronic encephalopathy -difficult to evaluate as do not know BL mental status -glucose 104. Vitals WNL -will eval with [facility] Objective: Vital Signs Temp Pulse Resp BP Pulse Ox 36.7 C 78 16 178/80 H 97 02/23/17 23:21 02/23/17 23:21 02/23/17 23:21 02/23/17 23:21 02/23/17 23:21 Laboratory Results 02/22/17 04:30 02/23/17 18:29 02/22/17 02/23/17 02/24/17 05:59 05:59 05:59 Intake Total 3255 1335 3209 Output Total 1675 1750 30 Balance 1580 -415 3179 PT 14.0 SEC (12.0-15.0) 02/22/17 04:30 INR 1.09 (0.83-1.16) 02/22/17 04:30 ICD10 Worksheet Patient Problems: Problems Problem Status Onset Dehydration Acute Hypokalemia Acute Hypoxia Acute Open abdominal wall wound Acute PEG tube malfunction Acute Pneumonia Acute UTI (urinary tract infection) Acute VRE (vancomycin-resistant Enterococci) Acute ~02/07/17
[2017-02-24] MEDS: PIPERACILLIN/TAZO 4.5 GM/DEX 100 ML IV SCH ×3 (05:01→17:53)
[2017-02-24 05:25] LABS: ANION GAP 11 mEq/L (8-16); CALCIUM 9.5 mg/dL (8.5-10.4); CARBON DIOXIDE 19 mEq/l (22-31); CHLORIDE 110 mEq/L (97-110); CREATININE 0.4 mg/dL (0.6-1.0); GLOMERULAR FILTRATION RATE > 60; GLUCOSE 86 mg/dL (70-100); MAGNESIUM 2.3 mg/dL (1.6-2.3); POTASSIUM 4.5 mEq/L (3.5-5.2); SODIUM 140 mEq/L (134-144)
[2017-02-24] MEDS: MICAFUNGIN NA 100 MG in NS 100 ML IV SCH (08:06)
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
[2017-02-24] MEDS: FLUTICASONE HFA 44 MCG MDI IH SCH (09:35)
[2017-02-24] MEDS: PANTOPRAZOLE SODIUM 40 MG in NS 100 ML IV SCH ×2 (09:54→21:07)
[2017-02-24] MEDS: ENOXAPARIN 40 MG/0.4 ML SYR SC SCH (09:54)
--- NOTE | 2017-02-24 13:02 | HOSPPROG ---
Hospitalist Progress Note Assessment/Plan: This is a 56-year-old female presenting with abdominal pain. # abdominal wall cellulitis/phlegmon w G tube leakage (skin red and excoriated) with nonfunctioning peg tube - CT scan of abdomen on 02/07 shows abscess w surrounding phlegmon - IV antibiotics/ Zosyn, Micafungin / have asked ID on how long to continue - PEG change per Dr Hogan possibly...not new placement/ clogged - cont TPN (31 ml) and fluids (50 ml) -cont wound care -cont NPO and PEG rest # Initial concern for possible aspiration and Healthcare associated pneumonia. - lung sounds CTA. On room air - swallow study done, NPO - change meds to IV - repeat chest xray shows improvement # Complicated UTI secondary to pseudomonas -Brody has been changed -contact isolation for VRE # Severe protein calorie malnutrition. With low BMI of 17.6, - TPN -[place] can take TPN #triglyceridemia -poss from TPN #Hyperkalemia/hypokalemia -related to TPN -adjusted per pharmacy # Chronic encephalopathy. -called by nursing staff around 11:30 today that patient was not at her baseline -was evaluated by night physician/ CT scan ordered and showed nothing acute -today she appears close to her baseline which changes/she is diff to understand / but has no focal changes -hx of axonal brain injury # Hypertension/bp has been elevated -once g tube is working, will need meds added - IV PRN meds -catapres patch dose increased # Anemia. - due to acute illness - protonix to daily # right lower ext fx cast in place/left in place till February 25 Diet. NPO, TPN per surgery Prophylaxis. High risk patient, Lovenox 40 Plan: ask ID for input as far as abx, repeat CT of abdomen? will get chest xray and ABG to r/o any etiology of her mental changes/ will get repeat labs in a.m. Subjective: Adia is not very talkative, but says "no" when I asked her about pain. Objective: Vital Signs Temp Pulse Resp BP Pulse Ox 36.7 C 77 20 164/80 H 99 02/24/17 07:49 02/24/17 09:36 02/24/17 09:36 02/24/17 07:49 02/24/17 09:36 Laboratory Results 02/22/17 04:30 02/24/17 05:00 02/23/17 02/24/17 02/25/17 05:59 05:59 05:59 Intake Total 1335 3209 1265 Output Total 1750 555 Balance -415 9104 1265 PT 14.0 SEC (12.0-15.0) 02/22/17 04:30 INR 1.09 (0.83-1.16) 02/22/17 04:30 - Physical Exam Constitutional: chronically ill appearing, cachectic, No appears nourished Eyes: PERRL Ears, Nose, Mouth, Throat: hearing normal Cardiovascular: regular rate and rhythym Respiratory: no respiratory distress, expiratory wheeze (few scattered) Gastrointestinal: normoactive bowel sounds, other (peg with drainage/ has a colostomy bag collecting fluids) Genitourinary: brody in urethra Skin: warm Musculoskeletal: other (contractures) Neurologic: other (alert, very difficult to understand her) ICD10 Worksheet Patient Problems: Problems Problem Status Onset Dehydration Acute Hypokalemia Acute Hypoxia Acute Open abdominal wall wound Acute PEG tube malfunction Acute Pneumonia Acute UTI (urinary tract infection) Acute VRE (vancomycin-resistant Enterococci) Acute ~02/07/17
[2017-02-24 13:13] LABS: BASE EXCESS -5.3 mEq/L (-2.5-2.5); BICARBONATE 18 mEq/L (22-26); MEASURED OXYGEN SATURATION 94 % (92-95); PCO2 29 mmHg (34-38); PO2 71 mmHg (65-75); TCO2 19 mEq/L (23-27)
[2017-02-24 13:14] LABS: O2 CONCENTRATIION ROOM AIR % (0-100); P/F RATIO 0 RATIO
--- NOTE | 2017-02-24 14:31 | WOCRNPDOC ---
WOCRN Advanced Assessment Note - Skin Integrity Problem, Advanced Assess Left Abdomen Drain Site Other Dressing Type: Ostomy appliance Dressing Description: Not Intact (leaking under wafer (undermined)) Exudate Amount: Excessive (gastric contents) Exudate Color: Yellow, Green Exudate Characteristic(s): Clear Integumentary Issue Intervention: Dressing Changed Michelle Wound Tissue: Erythema, Weeping, Denuded Wound Bed Color: [place], White Wound Bed Constitution: Granulation Tissue (20%), Smooth Tissue (80%) Wound Edges: Epithelizing, Attached Skin Integrity Problem Comment: Changed appliance with Gwendolyn BOOKER and Flower BOOKER. Cleaned skin with water and washcloth. Stoma powder to open area. Applied a one piece 4 inch drain pouch from [employer] [facility] to try a different appliance. Will round again 02/25.
--- NOTE | 2017-02-24 17:17 | PCMIDPN ---
Assessment/Plan: Assessment: Infected PEG tube site -Kimberley found in culture. Status post 14 days of treatment with micafungin and her soft tissue around the PEG tube site looks like it is doing well. We will discontinue the micafungin.. Probable urinary tract infection. Pseudomonas and Enterococcus in culture. Patient has resolved leukocytosis on Zosyn. The Enterococcus is resistant to ampicillin and vancomycin. Patient seems to have had a knife antibiotic to cover complicated urinary tract infection by this point. We will discontinue Zosyn. Plan: 1. Discontinue both Zosyn and micafungin. 2. Follow function of the G-tube. Discharge once cleared by surgery. 3. Follow clinical course and laboratory values. Subjective: Patient is resting in her hospital bed. She is somewhat less interactive today but still responds appropriately to questions. Eyes tracking appropriately. Objective: Micafungin # 16 Zosyn # 16 Vital Signs Temp Pulse Resp BP Pulse Ox 36.7 C 75 18 178/84 H 97 02/24/17 15:24 02/24/17 15:24 02/24/17 15:24 02/24/17 15:24 02/24/17 15:24 Laboratory Results 02/22/17 04:30 02/24/17 05:00 02/23/17 02/24/17 02/25/17 05:59 05:59 05:59 Intake Total 1335 3209 1265 Output Total 1750 555 900 Balance -415 0880 365 - Physical Exam General Appearance: WD/WN, alert, no apparent distress, thin, non-toxic Respiratory: lungs clear, normal breath sounds, No respiratory distress Cardiac/Chest: regular rate, rhythm, No tachycardia Skin: normal color, warm/dry, No rash Neuro/Psych: alert ICD10 Worksheet Patient Problems: Problems Problem Status Onset Dehydration Acute Hypokalemia Acute Hypoxia Acute Open abdominal wall wound Acute PEG tube malfunction Acute Pneumonia Acute UTI (urinary tract infection) Acute VRE (vancomycin-resistant Enterococci) Acute ~02/07/17
[2017-02-24] MEDS: NS 1,000 ML IV SCH (17:53)
[2017-02-24] MEDS: TPN 1 EA BAG IV SCH (21:40)
[2017-02-25] MEDS: FLUTICASONE HFA 44 MCG MDI IH SCH ×3 (00:32→22:24)
[2017-02-25] MEDS: hydrALAZINE 20 MG/ML VIAL IVP PRN ×2 (00:48→07:44)
[2017-02-25] MEDS: PANTOPRAZOLE SODIUM 40 MG in NS 100 ML IV SCH ×2 (07:44→21:00)
[2017-02-25] MEDS: ENALAPRILAT DIHYDRATE 1.25 MG/ML VIAL IVP PRN ×2 (09:06→16:46)
[2017-02-25] MEDS ORDERED: ACETAMINOPHEN 650 MG SUPP PR ONE (09:36)
--- NOTE | 2017-02-25 09:54 | HOSPPROG ---
Hospitalist Progress Note Assessment/Plan: This is a 56-year-old female presenting with abdominal pain. Reviewed her care with Dr Bowden and Dr Hogan. # abdominal wall cellulitis/phlegmon w G tube leakage (skin red and excoriated) with nonfunctioning peg tube - CT scan of abdomen on 02/07 shows abscess w surrounding phlegmon - IV antibiotics/ Zosyn, Micafungin / stopped on 02/24 - cont TPN (31 ml) and fluids (50 ml) - ordered repeat CT today of abdomen for further evaluation/ patient looks uncomfortable - Dr Hogan evaluating g tube for further use # Initial concern for possible aspiration and Healthcare associated pneumonia. #low grade temp -blood cx ordered # Complicated UTI secondary to pseudomonas -Tompkins has been changed -contact isolation for VRE # Severe protein calorie malnutrition. With low BMI of 17.6, - TPN -[place] can take TPN #triglyceridemia -poss from TPN #Hyperkalemia/hypokalemia -related to TPN -adjusted per pharmacy # Chronic encephalopathy. -seems worse/ MRI showed nothing acute -CT scan of head showed nothing acute -she has a axonal brain injury # Hypertension/bp has been elevated -catapres patch dose increased -added prn vasotec along w hydralazine # Anemia. - due to acute illness - protonix to daily # right lower ext fx cast in place/left in place till February 25/ will need to discuss w ortho at [facility] the plan for this Diet. NPO, TPN per surgery Prophylaxis. High risk patient, Lovenox 40 Plan: get a CT scan of abdomen, blood cx Subjective: Sheldon rider stares at me. Objective: Vital Signs Temp Pulse Resp BP Pulse Ox 38.2 C 102 H 18 197/88 H 95 02/25/17 07:35 02/25/17 09:29 02/25/17 09:29 02/25/17 08:34 02/25/17 09:29 Laboratory Results 02/22/17 04:30 02/24/17 05:00 02/24/17 02/25/17 02/26/17 05:59 05:59 05:59 Intake Total 3209 1265 2255 Output Total 555 2225 Balance 2654 -960 2255 PT 14.0 SEC (12.0-15.0) 02/22/17 04:30 INR 1.09 (0.83-1.16) 02/22/17 04:30 - Physical Exam Constitutional: uncomfortable, cachectic Eyes: PERRL Ears, Nose, Mouth, Throat: hearing normal Cardiovascular: regular rate and rhythym Respiratory: no respiratory distress, expiratory wheeze (few scattered) Gastrointestinal: normoactive bowel sounds Skin: warm Musculoskeletal: other (contractures) Neurologic: other (alert, nonverbal today) ICD10 Worksheet Patient Problems: Problems Problem Status Onset Dehydration Acute Hypokalemia Acute Hypoxia Acute Open abdominal wall wound Acute PEG tube malfunction Acute Pneumonia Acute UTI (urinary tract infection) Acute VRE (vancomycin-resistant Enterococci) Acute ~02/07/17
--- NOTE | 2017-02-25 09:55 | PCMIDPN ---
Assessment/Plan: # recurrent fever and tachycardia. But hypertension. Concern for persistent abdominal wall abscess verses bacteremia. ALso consider adverse reaction to other meds --repeat CT scan with IV contrast --blood cultures --BP stable will hold off on antibiotics till more data at this point # abdominal wall abscess associated with PEG. Original PEG still in place but not working. S/p 16 days of Zosyn and micafungin. Antibiotics were discontinued 02/24/2017. --continue off antibiotic for now. # urinary colonization with PsA and VRE. --contact isolation Subjective: No diarrhea, no skin breakdown Nursing endorses altered mental status today Objective: Vital Signs Temp Pulse Resp BP Pulse Ox 38.2 C 102 H 18 197/88 H 95 02/25/17 07:35 02/25/17 09:29 02/25/17 09:29 02/25/17 08:34 02/25/17 09:29 Laboratory Results 02/22/17 04:30 02/24/17 05:00 02/24/17 02/25/17 02/26/17 05:59 05:59 05:59 Intake Total 3209 1265 2255 Output Total 555 2225 Balance 2654 -960 2255 - Physical Exam General Appearance: alert, no apparent distress, other (Diaphoretic) Respiratory: other (Decreased breath sounds), No accessory muscle use Neck: supple Cardiac/Chest: tachycardia Extremities: non-tender, other (Cast in place), No pedal edema, No inflammation Abdomen: non-tender, soft, No distended Pelvic Exam: brody Skin: diaphoresis, pallor, No jaundice, No rash Neuro/Psych: alert, confused - Line/s RUE PICC Lines: No drainage, No erythema - Time Spent With Patient Time Spent with Patient: greater than 35 minutes (Coordination of care with hospitalist team) Time Spent with Patient: Greater than 35 minutes spent on this patients care, greater than 50% of time spent counseling, educating, and coordinating care regarding the above mentioned plan. ICD10 Worksheet Patient Problems: Problems Problem Status Onset Dehydration Acute Hypokalemia Acute Hypoxia Acute Open abdominal wall wound Acute PEG tube malfunction Acute Pneumonia Acute UTI (urinary tract infection) Acute VRE (vancomycin-resistant Enterococci) Acute ~02/07/17
[2017-02-25 10:05] LABS: % IMMATURE GRANULYOCYTES 0.4 % (0.0-1.1); ABSOLUTE IMMATURE GRANULOCYTES 0.03 10^3/uL (0.00-0.10); ADD DIFF? NO; ADD MORPH? YES; ADD SCAN? NO; ATYPICAL LYMPHOCYTE FLAG 10 (0-99); FRAGMENT RBC FLAG 10 (0-99); HEMATOCRIT 33.2 % (38.0-47.0); HEMOGLOBIN 10.3 g/dL (12.6-16.3); LEFT SHIFT FLG 0 (0-99); LIPEMIA HEMOLYSIS FLAG 80 (0-99); MEAN CELL HEMOGLOBIN 30.6 pg (27.9-34.1); MEAN CELL VOLUME 98.5 fL (81.5-99.8); MEAN PLATELET VOLUME 10.1 fL (8.7-11.7); PLATELET CLUMPS FLAG 0 (0-99); PLATELET COUNT 445 10^3/uL (150-400); RED BLOOD CELL COUNT 3.37 10^6/uL (4.18-5.33)
[2017-02-25 10:08] LABS: RED CELL DISTRIBUTION WIDTH 21.1 % (11.5-15.2)
[2017-02-25] MEDS ORDERED: IOPAMIDOL (ISOVUE-300) 100 ML BTL ONE (10:40)
[2017-02-25 10:45] LABS: PLATELET ESTIMATE INCREASED (ADEQ)
[2017-02-25 10:53] LABS: MACROCYTES 1+
[2017-02-25] MEDS: ENOXAPARIN 40 MG/0.4 ML SYR SC SCH (13:07)
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
[2017-02-25] MEDS ORDERED: NITROGLYCERIN 2% 1 GM PACKET TP SCH ×2 (14:35→18:00)
[2017-02-25] MEDS: LORazepam 2 MG/ML INJ IVP PRN ×2 (15:53→16:46)
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
[2017-02-25] MEDS: IPRATROPIUM/ALBUTEROL 3 ML DEYVIAL IH SCH ×2 (16:34→22:24)
[2017-02-25] MEDS ORDERED: LORazepam 2 MG/ML INJ IVP ONE (16:40)
[2017-02-25] MEDS: NITROGLYCERIN 2% 1 GM PACKET TP SCH (18:15)
[2017-02-25] MEDS: TPN 1 EA BAG IV SCH (21:00)
[2017-02-25] MEDS: LORazepam 2 MG/ML INJ IVP SCH (21:01)
[2017-02-26] MEDS: NS 1,000 ML IV SCH
[2017-02-26 04:56] LABS: ANION GAP 13 mEq/L (8-16); CALCIUM 9.9 mg/dL (8.5-10.4); CARBON DIOXIDE 19 mEq/l (22-31); CHLORIDE 112 mEq/L (97-110); CREATININE 0.5 mg/dL (0.6-1.0); GLOMERULAR FILTRATION RATE > 60; GLUCOSE 140 mg/dL (70-100); MAGNESIUM 2.2 mg/dL (1.6-2.3); POTASSIUM 4.5 mEq/L (3.5-5.2); SODIUM 144 mEq/L (134-144)
[2017-02-26] MEDS: hydrALAZINE 20 MG/ML VIAL IVP PRN ×2 (05:02→12:21)
[2017-02-26] MEDS: IPRATROPIUM/ALBUTEROL 3 ML DEYVIAL IH SCH ×4 (06:18→22:38)
--- NOTE | 2017-02-26 09:02 | PCMIDPN ---
Assessment/Plan: # Continued fever and tachycardia with elevated blood pressure. CT scan showed abdominal wall abscess significantly improved. Area of irritation around the PEG tube is much smaller and no erythema is present. Unclear if ongoing fever reflects undiagnosed infection verses withdrawal to benzos. patient is much more alert today and interactive answering simple questions. --Continue to follow blood cultures --hold off on antibiotics till more data # abdominal wall abscess associated with PEG. Original PEG still in place but not working. S/p 16 days of Zosyn and micafungin. Antibiotics were discontinued 02/24/2017. --continue off antibiotic for now. # urinary colonization with PsA and VRE. --contact isolation Case reviewed with Dr. Tawny Hogan and Sarai Suero NP Subjective: patient reports that her abdominal pain is improved today Objective: Vital Signs Temp Pulse Resp BP Pulse Ox 38.6 C H 111 H 14 181/100 H 93 02/26/17 08:00 02/26/17 08:00 02/26/17 08:00 02/26/17 08:00 02/26/17 08:00 Laboratory Results 02/25/17 09:30 02/26/17 04:30 02/25/17 02/26/17 02/27/17 05:59 05:59 05:59 Intake Total 1265 4074 Output Total 2225 1950 Balance -960 2124 - Physical Exam General Appearance: alert, no apparent distress, non-toxic EENT: No scleral icterus, No thrush Respiratory: lungs clear, No accessory muscle use Cardiac/Chest: tachycardia Extremities: other ( cast in place right lower extremity), No pedal edema Abdomen: non-tender, soft, other ( left peg tube site without surrounding erythema. Dopoff tube was removed at bedside by Dr. Hogan) Pelvic Exam: brody Skin: No rash Neuro/Psych: alert, other ( answering simple questions appropriately) - Line/s LUE PICC Lines: No drainage, No erythema - Time Spent With Patient Time Spent with Patient: greater than 35 minutes Time Spent with Patient: Greater than 35 minutes spent on this patients care, greater than 50% of time spent counseling, educating, and coordinating care regarding the above mentioned plan. ICD10 Worksheet Patient Problems: Problems Problem Status Onset Dehydration Acute Hypokalemia Acute Hypoxia Acute Open abdominal wall wound Acute PEG tube malfunction Acute Pneumonia Acute UTI (urinary tract infection) Acute VRE (vancomycin-resistant Enterococci) Acute ~02/07/17
--- NOTE | 2017-02-26 09:09 | HOSPPROG ---
Hospitalist Progress Note Assessment/Plan: This is a 56-year-old female presenting with abdominal pain. Reviewed her care with Dr Bowden and Dr Hogan. # abdominal wall cellulitis/phlegmon w G tube leakage (skin red and excoriated) with nonfunctioning peg tube - IV antibiotics/ Zosyn, Micafungin / stopped on 02/24 (ID to sign off) - cont TPN (31 ml) and fluids (50 ml) - CT on 02/25 looks stable - tube feedings initiated # Initial concern for possible aspiration and Healthcare associated pneumonia. # low grade temp -blood cx ordered # Complicated UTI secondary to pseudomonas -Tompkins has been changed -contact isolation for VRE # Severe protein calorie malnutrition. With low BMI of 17.6, - TPN -[place] can take TPN # triglyceridemia -poss from TPN # Hyperkalemia/hypokalemia -related to TPN -adjusted per pharmacy # Chronic encephalopathy. - MRI showed nothing acute -CT scan of head showed nothing acute -she has a axonal brain injury -with tachycardia, sweating and htn suspect she may withdrawing from benzo's/ spoke w her mom/ she said she has been on them -much improved with adding scheduled Ativan, increased to tid today due to uncontrolled Htn/ she is much more alert with this medication # Hypertension/bp has been elevated -catapres patch dose increased /now at 0.3 -added prn vasotec, hydralazine, ntg past # Anemia. - due to acute illness - protonix to daily # right lower ext fx -cast in place/left in place till February 25 -spoke with Katerina MCCRARY, who works with Dr Rose [phone] -will get xrays / Dr Rose will look at the xrays/ Prophylaxis. High risk patient, Lovenox 40 Plan: get x rays to r lower extremity, change fluids to 1/2 normal saline due to increasing Na levels Subjective: Sheldon is more verbal. Heart rate increases rapidly when I touch her right leg. Objective: Vital Signs Temp Pulse Resp BP Pulse Ox 38.6 C H 111 H 14 181/100 H 93 02/26/17 08:00 02/26/17 08:00 02/26/17 08:00 02/26/17 08:00 02/26/17 08:00 Laboratory Results 02/25/17 09:30 02/26/17 04:30 02/25/17 02/26/17 02/27/17 05:59 05:59 05:59 Intake Total 1265 4074 Output Total 222 1950 Balance -960 2124 PT 14.0 SEC (12.0-15.0) 02/22/17 04:30 INR 1.09 (0.83-1.16) 02/22/17 04:30 - Physical Exam Constitutional: chronically ill appearing, uncomfortable, cachectic Eyes: PERRL Ears, Nose, Mouth, Throat: hearing normal Cardiovascular: regular rate and rhythym, tachycardia Respiratory: no respiratory distress Gastrointestinal: normoactive bowel sounds Skin: warm Musculoskeletal: other (contractures in upper ext) Neurologic: other (alert) ICD10 Worksheet Patient Problems: Problems Problem Status Onset Dehydration Acute Hypokalemia Acute Hypoxia Acute Open abdominal wall wound Acute PEG tube malfunction Acute Pneumonia Acute UTI (urinary tract infection) Acute VRE (vancomycin-resistant Enterococci) Acute ~02/07/17
[2017-02-26] MEDS: FLUTICASONE HFA 44 MCG MDI IH SCH ×2 (09:38→22:40)
[2017-02-26] MEDS: ENALAPRILAT DIHYDRATE 1.25 MG/ML VIAL IVP PRN (09:49)
[2017-02-26] MEDS: ENOXAPARIN 40 MG/0.4 ML SYR SC SCH (09:50)
[2017-02-26] MEDS: fentaNYL 75 MCG PATCH TD SCH (09:50)
[2017-02-26] MEDS: LORazepam 2 MG/ML INJ IVP SCH ×3 (09:50→21:17)
[2017-02-26] MEDS: PANTOPRAZOLE SODIUM 40 MG in NS 100 ML IV SCH ×2 (09:51→20:53)
[2017-02-26] MEDS: ACETAMINOPHEN 650 MG SUPP PR PRN ×2 (12:21→23:30)
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
[2017-02-26] MEDS: 1/2 NS 1,000 ML IV SCH (17:01)
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
[2017-02-26] MEDS: NITROGLYCERIN 2% 1 GM PACKET TP SCH ×3 (18:44→23:21)
[2017-02-26] MEDS: TPN 1 EA BAG IV SCH (20:53)
[2017-02-27] MEDS: HYDROmorphONE/DILAUDID 1 MG/ML SYR IVP PRN ×8 (00:19→23:12)
--- NOTE | 2017-02-27 00:52 | HOSPPROG ---
Hospitalist Progress Note Assessment/Plan: Patient seen on 02/26 for worsening pain located in her abdomen, as well as persistent fever/tachycardia despite tylenol. Reviewed chart, patient's Abx stopped 02/24 s/p 16 days of zosyn and interval improvement of affected areas on abd CT; BCx 02/25 NGTD, WBC nl. Patient examined and her verbal responses are limited to single word, and I am not entirely certain that they are reliable answers to the specific questions. Abd is firm and she does not seem to express significant pain w/ palpation around the GJ-tube site/ostomy bag, R hip is not particularly tender to palpation, breath sounds present bilat w/o rhonchi, HR remains 100-110, RN reports no other localizing sx. Patient received ativan/morphine earlier w/o significant response. - adjust pain Rx to dilaudid IV PRN - get CBC in AM, hold on further BCx, monitor fever curve - hold on introducing further Abx at this point, as she is not hypotensive and it is uncertain whether she is truly infected - attempt to contact ID to discuss Abx further Objective: Vital Signs Temp Pulse Resp BP Pulse Ox 39.0 C H 114 H 20 150/86 H 93 02/26/17 23:24 02/26/17 23:24 02/26/17 23:24 02/26/17 23:24 02/26/17 23:24 Laboratory Results 02/25/17 09:30 02/26/17 04:30 02/25/17 02/26/17 02/27/17 05:59 05:59 05:59 Intake Total 1265 4074 405 Output Total 2225 1950 750 Balance -960 2124 -345 PT 14.0 SEC (12.0-15.0) 02/22/17 04:30 INR 1.09 (0.83-1.16) 02/22/17 04:30 ICD10 Worksheet Patient Problems: Problems Problem Status Onset VRE (vancomycin-resistant Enterococci) Acute ~02/07/17 Pneumonia Acute Dehydration Acute Hypoxia Acute PEG tube malfunction Acute Hypokalemia Acute Open abdominal wall wound Acute UTI (urinary tract infection) Acute
[2017-02-27] MEDS: ACETAMINOPHEN 650 MG SUPP PR PRN ×2 (06:21→17:35)
[2017-02-27] MEDS: IPRATROPIUM/ALBUTEROL 3 ML DEYVIAL IH SCH ×4 (06:37→23:46)
[2017-02-27 08:04] LABS: % IMMATURE GRANULYOCYTES 0.5 % (0.0-1.1); ABSOLUTE IMMATURE GRANULOCYTES 0.05 10^3/uL (0.00-0.10); ADD DIFF? NO; ADD MORPH? YES; ADD SCAN? NO; ATYPICAL LYMPHOCYTE FLAG 10 (0-99); FRAGMENT RBC FLAG 10 (0-99); HEMATOCRIT 29.7 % (38.0-47.0); HEMOGLOBIN 8.8 g/dL (12.6-16.3); LEFT SHIFT FLG 0 (0-99); LIPEMIA HEMOLYSIS FLAG 70 (0-99); MEAN CELL HEMOGLOBIN 28.3 pg (27.9-34.1); MEAN CELL HEMOGLOBIN CONCENTR. 29.6 g/dL (32.4-36.7); MEAN CELL VOLUME 95.5 fL (81.5-99.8); PLATELET CLUMPS FLAG 10 (0-99); PLATELET COUNT 372 10^3/uL (150-400); RED BLOOD CELL COUNT 3.11 10^6/uL (4.18-5.33)
[2017-02-27 08:30] LABS: ALANINE AMINOTRANSFERASE 87 IU/L (9-52); ALBUMIN 3.3 g/dL (3.5-5.0); ALKALINE PHOSPHATASE 146 IU/L (38-126); ANION GAP 13 mEq/L (8-16); ASPARTATE AMINOTRANSFERASE 79 IU/L (14-46); BILIRUBIN,TOTAL 0.7 mg/dL (0.1-1.4); CALCIUM 9.7 mg/dL (8.5-10.4); CARBON DIOXIDE 20 mEq/l (22-31); CHLORIDE 118 mEq/L (97-110); CREATININE 0.4 mg/dL (0.6-1.0); GLOMERULAR FILTRATION RATE > 60; GLUCOSE 103 mg/dL (70-100); POTASSIUM 4.9 mEq/L (3.5-5.2); SODIUM 151 mEq/L (134-144); TOTAL PROTEIN 6.4 g/dL (6.3-8.2)
[2017-02-27 09:05] LABS: COLOR YELLOW; LEUKOCYTE ESTERASE,URINE NEGATIVE (NEGATIVE); NITRITE,URINE NEGATIVE (NEGATIVE)
[2017-02-27] MEDS: LORazepam 2 MG/ML INJ IVP SCH ×3 (09:08→22:10)
[2017-02-27 09:14] LABS: MUCUS TRACE /lpf (NONE-1+); RBC,URINE 25-50 /hpf (0-3)
[2017-02-27 09:22] LABS: PLATELET ESTIMATE ADEQUATE (ADEQ)
[2017-02-27 09:23] LABS: POLYCHROMASIA 1+
[2017-02-27] MEDS: PANTOPRAZOLE SODIUM 40 MG in NS 100 ML IV SCH ×2 (09:59→20:45)
[2017-02-27] MEDS: ENOXAPARIN 40 MG/0.4 ML SYR SC SCH (10:00)
--- NOTE | 2017-02-27 10:04 | PCMIDPN ---
Assessment/Plan: Assessment/Plan: 1. Fevers, leukocytosis: - Uncertain etiology. Ongoing infectious vs medication vs withdrawl, vs other -Repeat cultures have been collected today including BC, UA (looked unremarkable ) -Given ongoing fever spikes which started one day after last dose of antibiotics , tachycardia, bp fluctuations, wbc and lft trending up-will restart antibiotics while awaiting cultures. Will restart micafungin (given previous cx and that pt is on TPN), and zosyn for now. If cx unrevealing, then will reassess need. -lf continues with fevers, may benefit with f/u Ct. -Given difficulty to evaluating patient's symptoms, recommend ortho to remove cast at some point to ensure no skin breakdown as a potential source. - 2. Intraabdominal abscess associated with PEG tube: - 1.8x 1.4x 1.2cm collection with phlegmon around peg tube. improved on recent Ct abd 02/25/17 -cultures with C. albicans -Last dose of antibiotics was on 02/24/17 -wbc trending up again -blood cx ngtd from 02/25/17 , f/u 02/27/17 pending Meds s/p zosyn 4.5gm q6-02/07/17-02/24/17---#18 micafungin 100mg daily- 02/09/17-02/24/17---#16 Subjective: intermittent fever spikes with tachycardia. previously with high blood pressure. now somewhat lower. pt awake, screaming for water. states RLE hurts. Difficult to understand what she means by this as she is unable to elaborate further. Objective: Vital Signs Temp Pulse Resp BP Pulse Ox 37.7 C 93 16 125/75 H 93 02/27/17 08:00 02/27/17 08:00 02/27/17 08:00 02/27/17 08:00 02/27/17 08:00 Laboratory Results 02/27/17 07:45 02/27/17 07:45 02/26/17 02/27/17 02/28/17 05:59 05:59 05:59 Intake Total 4074 6497 Output Total 2394 1275 15 Balance 2124 472 -15 - Physical Exam General Appearance: alert, other (asking for water) EENT: other (dry mucous membranes) Respiratory: lungs clear (anteriorly but limited exam) Cardiac/Chest: regular rate, rhythm Extremities: other (RLE cast; RUE picc line. no swelling noted.), No swelling Abdomen: normal bowel sounds, non-tender, soft, other (PEg tube with ostomy over with greenish fluid within), No distended Pelvic Exam: brody Skin: other (RLE cast: unable to see under cast at this time), No erythema ICD10 Worksheet Patient Problems: Problems Problem Status Onset Dehydration Acute Hypokalemia Acute Hypoxia Acute Open abdominal wall wound Acute PEG tube malfunction Acute Pneumonia Acute UTI (urinary tract infection) Acute VRE (vancomycin-resistant Enterococci) Acute ~02/07/17
[2017-02-27] MEDS ORDERED: MICAFUNGIN NA 100 MG in NS 100 ML IV SCH (10:30)
[2017-02-27] MEDS: FLUTICASONE HFA 44 MCG MDI IH SCH ×2 (10:52→20:55)
[2017-02-27] MEDS ORDERED: VANCOMYCIN HCL/NORMAL SALINE 250 ML IV SCH (11:30)
[2017-02-27] MEDS ORDERED: PIPERACILLIN/TAZO 3.375 GM/DEX 50 ML IV SCH (12:00)
[2017-02-27] MEDS: VANCOMYCIN 500 MG in D5W 100 ML IV SCH (12:03)
--- NOTE | 2017-02-27 13:16 | SOAPPROG ---
SOAP Progress Note Assessment/Plan: Assessment: NO REAL CHANGE TODAY Plan:CONTINUE WOUND CARE 02/27/17 13:16 Objective: Vital Signs Temp Pulse Resp BP Pulse Ox 37.5 C 93 12 116/68 96 02/27/17 11:33 02/27/17 11:33 02/27/17 11:33 02/27/17 11:33 02/27/17 11:33 Microbiology 02/25/17 10:33 Blood Panel (PCR) - Final Blood No Organism Detected Laboratory Results 02/27/17 07:45 02/27/17 07:45 02/26/17 02/27/17 02/28/17 05:59 05:59 05:59 Intake Total 4074 1747 Output Total 1950 1275 415 Balance 2124 472 -415 PT 14.0 SEC (12.0-15.0) 02/22/17 04:30 INR 1.09 (0.83-1.16) 02/22/17 04:30 ICD10 Worksheet Patient Problems: Problems Problem Status Onset Dehydration Acute Hypokalemia Acute Hypoxia Acute Open abdominal wall wound Acute PEG tube malfunction Acute Pneumonia Acute UTI (urinary tract infection) Acute VRE (vancomycin-resistant Enterococci) Acute ~02/07/17
--- NOTE | 2017-02-27 16:41 | HOSPPROG ---
Hospitalist Progress Note Assessment/Plan: This is a 56-year-old female presenting with abdominal pain. Reviewed her care with Dr Tejada. # abdominal wall cellulitis/phlegmon w G tube leakage (skin red and excoriated) with nonfunctioning peg tube IV antibiotics/ Zosyn, Micafungin / stopped on 02/24/ now restarted due to fevers CT on 02/25 looks stable tube feedings initiated and now stopped today / patient yelling and appears to be in pain # right lower ext fx/distal tibial fx cast in place spoke with Katerina MCCRARY, who works with Dr Rose [phone]/they evaluated the xray and noted they were all stable/ from their perspective, ok to leave cast on for 2 more weeks, if cast needs to be removed, a boot can be placed (they are recommending this only if needs to be off) reviewed her care w Dr Tejada, if cont to spike fevers, will need cast removed ( ER doc or ortho can remove) #subacute fx of left superior and inferior pubic rami supportive care suspect this is where her pain is # Complicated UTI secondary to pseudomonas # Severe protein calorie malnutrition. With low BMI of 17.6, TPN @ 31 ml/ 1/2 saline @ 50 ml # triglyceridemia poss from TPN # Hyperkalemia/hypokalemia adjusted per pharmacy in TPN # Chronic encephalopathy with acute. MRI showed nothing acute CT scan of head showed nothing acute axonal brain injury with tachycardia, sweating and htn suspect she may withdrawing from benzo's/ spoke w her mom/ she said she has been on them much improved with adding scheduled Ativan, increased to tid / she is much cleared # Hypertension/bp has been elevated catapres patch dose increased /now at 0.3 prn vasotec, hydralazine today is normotensive (will need close monitoring because of high dose Catapres patch) # Anemia. due to acute illness following Prophylaxis. High risk patient, Lovenox 40 Plan: if she has recurrent fevers, will need cast off on right lower ext to r/o skin breakdown,etc. Subjective: Sheldon is awake, moaning and yelling today. Objective: Vital Signs Temp Pulse Resp BP Pulse Ox 38.0 C 90 15 131/73 H 95 02/27/17 16:00 02/27/17 16:04 02/27/17 16:04 02/27/17 16:00 02/27/17 16:04 Microbiology 02/25/17 10:33 Blood Panel (PCR) - Final Blood No Organism Detected Laboratory Results 02/27/17 07:45 02/27/17 07:45 02/26/17 02/27/17 02/28/17 05:59 05:59 05:59 Intake Total 4072 8157 Output Total 9362 1275 765 Balance 2124 472 -765 PT 14.0 SEC (12.0-15.0) 02/22/17 04:30 INR 1.09 (0.83-1.16) 02/22/17 04:30 - Physical Exam Constitutional: chronically ill appearing, uncomfortable Eyes: PERRL Ears, Nose, Mouth, Throat: hearing normal Cardiovascular: regular rate and rhythym, No tachycardia Respiratory: no respiratory distress Gastrointestinal: normoactive bowel sounds Skin: warm Neurologic: other (alert) ICD10 Worksheet Patient Problems: Problems Problem Status Onset Dehydration Acute Hypokalemia Acute Hypoxia Acute Open abdominal wall wound Acute PEG tube malfunction Acute Pneumonia Acute UTI (urinary tract infection) Acute VRE (vancomycin-resistant Enterococci) Acute ~02/07/17
[2017-02-27] MEDS: LORazepam 2 MG/ML INJ IVP PRN (19:44)
[2017-02-27] MEDS: TPN 1 EA BAG IV SCH (20:49)
[2017-02-27] MEDS ORDERED: HALOPERIDOL LACT 5 MG/ML INJ IVP PRN (20:51)
[2017-02-27] MEDS: HALOPERIDOL LACT 5 MG/ML INJ IVP PRN ×3 (21:18→23:12)
[2017-02-28] MEDS: VANCOMYCIN 500 MG in D5W 100 ML IV SCH ×2 (00:08→11:50)
[2017-02-28] MEDS: HALOPERIDOL LACT 5 MG/ML INJ IVP PRN ×4 (00:26→18:19)
[2017-02-28] MEDS: HYDROmorphONE/DILAUDID 1 MG/ML SYR IVP PRN ×6 (03:26→20:20)
[2017-02-28] MEDS: IPRATROPIUM/ALBUTEROL 3 ML DEYVIAL IH SCH ×4 (05:14→22:22)
[2017-02-28 05:21] LABS: % IMMATURE GRANULYOCYTES 0.7 % (0.0-1.1); ABSOLUTE IMMATURE GRANULOCYTES 0.07 10^3/uL (0.00-0.10); ADD DIFF? NO; ADD MORPH? YES; ADD SCAN? NO; ATYPICAL LYMPHOCYTE FLAG 0 (0-99); FRAGMENT RBC FLAG 0 (0-99); HEMATOCRIT 26.3 % (38.0-47.0); HEMOGLOBIN 8.1 g/dL (12.6-16.3); LEFT SHIFT FLG 0 (0-99); LIPEMIA HEMOLYSIS FLAG 80 (0-99); MEAN CELL HEMOGLOBIN 30.9 pg (27.9-34.1); MEAN CELL HEMOGLOBIN CONCENTR. 30.8 g/dL (32.4-36.7); MEAN CELL VOLUME 100.4 fL (81.5-99.8); MEAN PLATELET VOLUME 10.4 fL (8.7-11.7); PLATELET CLUMPS FLAG 0 (0-99); PLATELET COUNT 338 10^3/uL (150-400); RED BLOOD CELL COUNT 2.62 10^6/uL (4.18-5.33)
[2017-02-28 05:36] LABS: RED CELL DISTRIBUTION WIDTH 20.8 % (11.5-15.2)
[2017-02-28 06:34] LABS: HYPOCHROMIA 1+; MACROCYTES 2+
[2017-02-28 06:35] LABS: PLATELET ESTIMATE ADEQUATE (ADEQ)
[2017-02-28 06:38] LABS: ALANINE AMINOTRANSFERASE 83 IU/L (9-52); ALKALINE PHOSPHATASE 138 IU/L (38-126); ANION GAP 10 mEq/L (8-16); ASPARTATE AMINOTRANSFERASE 67 IU/L (14-46); BILIRUBIN,TOTAL 0.7 mg/dL (0.1-1.4); CALCIUM 9.6 mg/dL (8.5-10.4); CARBON DIOXIDE 21 mEq/l (22-31); CHLORIDE 113 mEq/L (97-110); CREATININE 0.5 mg/dL (0.6-1.0); GLOMERULAR FILTRATION RATE > 60; GLUCOSE 96 mg/dL (70-100); POTASSIUM 4.5 mEq/L (3.5-5.2); SODIUM 144 mEq/L (134-144); TOTAL PROTEIN 6.3 g/dL (6.3-8.2)
[2017-02-28] MEDS: ENOXAPARIN 40 MG/0.4 ML SYR SC SCH (07:50)
[2017-02-28] MEDS: PANTOPRAZOLE SODIUM 40 MG in NS 100 ML IV SCH ×2 (07:50→20:28)
[2017-02-28] MEDS: LORazepam 2 MG/ML INJ IVP SCH ×3 (07:50→22:43)
[2017-02-28] MEDS: FLUTICASONE HFA 44 MCG MDI IH SCH ×2 (10:45→22:22)
[2017-02-28] MEDS: 1/2 NS 1,000 ML IV SCH (11:50)
--- NOTE | 2017-02-28 11:56 | HOSPPROG ---
Hospitalist Progress Note Assessment/Plan: This is a 56-year-old female presenting with abdominal pain. Reviewed her care with Dr Tejada. # abdominal wall cellulitis/phlegmon w G tube leakage (skin red and excoriated) with nonfunctioning peg tube IV antibiotics/ Zosyn, Micafungin / stopped on 02/24/ now restarted due to fevers CT on 02/25 looks stable tube feedings initiated and now stopped today /patient yelling # right lower ext fx/distal tibial fx cast in place spoke with Katerina MCCRARY, who works with Dr Rose [phone]/they evaluated the xray and noted they were all stable/ from their perspective, ok to leave cast on for 2 more weeks, if cast needs to be removed, a boot can be placed (they are recommending this only if needs to be off) reviewed her care w Dr Tejada, if cont to spike fevers, will need cast removed ( ER doc or ortho can remove) #subacute fx of left superior and inferior pubic rami supportive care suspect this is where her pain is # Complicated UTI secondary to pseudomonas # Severe protein calorie malnutrition. With low BMI of 17.6, TPN @ 31 ml/ 1/2 saline @ 50 ml # triglyceridemia poss from TPN # Hyperkalemia/hypokalemia adjusted per pharmacy in TPN # Chronic encephalopathy with acute. MRI showed nothing acute CT scan of head showed nothing acute axonal brain injury with tachycardia, sweating and htn suspect she may withdrawing from benzo's/ spoke w her mom/ she said she has been on them much improved with adding scheduled Ativan, increased to tid / she is much cleared # Hypertension/bp has been elevated catapres patch dose increased /now at 0.3 prn vasotec, hydralazine today is normotensive (will need close monitoring because of high dose Catapres patch) # Anemia. due to acute illness following Prophylaxis. High risk patient, Lovenox 40 Plan: if she has recurrent fevers, will need cast off on right lower ext to r/o skin breakdown,etc. Subjective: Yelling, uncomfortable. Objective: Vital Signs Temp Pulse Resp BP Pulse Ox 37.6 C 88 18 137/75 H 96 02/28/17 08:00 02/28/17 10:46 02/28/17 10:46 02/28/17 08:00 02/28/17 10:46 Microbiology 02/25/17 10:33 Blood Panel (PCR) - Final Blood No Organism Detected Laboratory Results 02/28/17 05:10 02/28/17 06:10 02/27/17 02/28/17 03/01/17 05:59 05:59 05:59 Intake Total 1747 1124 Output Total 1275 1390 Balance 472 -266 PT 14.0 SEC (12.0-15.0) 02/22/17 04:30 INR 1.09 (0.83-1.16) 02/22/17 04:30 - Physical Exam Constitutional: chronically ill appearing, uncomfortable Eyes: PERRL, anicteric sclera Ears, Nose, Mouth, Throat: hearing normal, ears appear normal Cardiovascular: No JVD, No edema Respiratory: no respiratory distress, reduced air movement Gastrointestinal: tenderness, No ascites Skin: warm, No mottled Musculoskeletal: muscular tenderness, generalized weakness Neurologic: No AAOx3 Psychiatric: not anxious, poor insight, poor judgement, poor memory ICD10 Worksheet Patient Problems: Problems Problem Status Onset VRE (vancomycin-resistant Enterococci) Acute ~02/07/17 Pneumonia Acute Dehydration Acute Hypoxia Acute PEG tube malfunction Acute Hypokalemia Acute Open abdominal wall wound Acute UTI (urinary tract infection) Acute
--- NOTE | 2017-02-28 12:04 | WOCRNPDOC ---
WOCRN Advanced Assessment Note - Skin Integrity Problem, Advanced Assess Left Abdomen Drain Site Dressing Type: Other Other Dressing Type: drainable one-piece fistula pouch Dressing Description: Clean/Dry, Intact Exudate Amount: Moderate Exudate Color: Yellow, Green Exudate Characteristic(s): Other Other Exudate Characteristic(s): gastric Integumentary Issue Intervention: Dressing Applied (Applied Tegaderm to lid of intact fistula pouch (see Comments, below)) Wound Bed Color: Red Site Odor: None Skin Integrity Problem Comment: Fistula pouch skin barrier surrounding tube site is intact, placed earlier by staff; moist, reddened tissue is visible through the opening immediately adjacent to the tube exit site. ADE Melissa reports having difficulty securing top lid of pouch, raising challenges with managing effluent being contained by the pouch. This advertising copywriter modified the pouch lid to provide an opening through which the tubing was then threaded through to exit the internal space of the pouch. A gasket was created around the tubing using Tegaderm strips, which also secured the tubing while providing for slack between the exterior of the pouch and the tubing exiting the abdomen, and making the tubing ports accessible on the pouch's exterior. Wound Care to follow up on Wednesday, 03/01.
[2017-02-28] MEDS: ACETAMINOPHEN 650 MG SUPP PR PRN (12:20)
--- NOTE | 2017-02-28 13:16 | SOAPPROG ---
SOAP Progress Note Assessment/Plan: Assessment: NO REAL CHANGE TODAY Plan:CONTINUE WOUND CARE 02/27/17 13:16 02/28/17 13:15 WOUND STABLE/ AFEBRILE/ CXR SHOWS BASILAR ATELECTASIS/ SLOWLY IMPROVING Objective: Vital Signs Temp Pulse Resp BP Pulse Ox 38.4 C H 90 20 138/75 H 93 02/28/17 12:02 02/28/17 12:02 02/28/17 12:02 02/28/17 12:02 02/28/17 12:02 Microbiology 02/25/17 10:33 Blood Panel (PCR) - Final Blood No Organism Detected Laboratory Results 02/28/17 05:10 02/28/17 06:10 02/27/17 02/28/17 03/01/17 05:59 05:59 05:59 Intake Total 1747 1124 Output Total 1275 1390 Balance 472 -266 PT 14.0 SEC (12.0-15.0) 02/22/17 04:30 INR 1.09 (0.83-1.16) 02/22/17 04:30 ICD10 Worksheet Patient Problems: Problems Problem Status Onset Dehydration Acute Hypokalemia Acute Hypoxia Acute Open abdominal wall wound Acute PEG tube malfunction Acute Pneumonia Acute UTI (urinary tract infection) Acute VRE (vancomycin-resistant Enterococci) Acute ~02/07/17
--- NOTE | 2017-02-28 13:43 | PCMIDPN ---
Assessment/Plan: Assessment/Plan: 1. Fevers, leukocytosis: - Uncertain etiology. Ongoing infectious vs medication vs withdrawl, vs other -blood cx from 02/25 have only 1/4 bottles with CoNS and f/u blood cx from prior to any vanco is ngtd. Will d/c vanco -REcent UA unremarkable. CXR with stable LLL consolidation. -REcdent Ct abd with improved inflammatory changes and no new abscess collections. -last dose of antbiotics was on 02/24/17. FEvers started on 02/25/17 -Consider f/u Ct a/p tomorrow if still with fevers. -Recheck cbc - recommend RLE cast be removed as well to evaluate for any skin breakdown to explain fevers. 2. Intraabdominal abscess associated with PEG tube: - 1.8x 1.4x 1.2cm collection with phlegmon around peg tube. improved on recent Ct abd 02/25/17 -cultures with C. albicans -Last dose of antibiotics was on 02/24/17 -wbc noted Meds vanco 500mg q12- 02/27/17 s/p zosyn 4.5gm q6-02/07/17-02/24/17---#18 micafungin 100mg daily- 02/09/17-02/24/17---#16 Subjective: intermittent fevers still. no associated tachycardia like previously. pt awake, c/o pain but isn't able to communicate or describe in detail further. d/w RN. no breakdown on her back. her PEG stie is much improved. no diarrrhea. Cast RLE. Objective: Vital Signs Temp Pulse Resp BP Pulse Ox 38.4 C H 90 20 138/75 H 93 02/28/17 12:02 02/28/17 12:02 02/28/17 12:02 02/28/17 12:02 02/28/17 12:02 Microbiology 02/25/17 10:33 Blood Panel (PCR) - Final Blood No Organism Detected Laboratory Results 02/28/17 05:10 02/28/17 06:10 02/27/17 02/28/17 03/01/17 05:59 05:59 05:59 Intake Total 1747 1124 Output Total 1275 1390 Balance 472 -266 - Physical Exam General Appearance: alert, no apparent distress Respiratory: lungs clear Cardiac/Chest: regular rate, rhythm Extremities: other (cast RLE), No swelling Abdomen: normal bowel sounds, non-tender, soft, other (ostomy over PEG site), No distended Skin: No erythema ICD10 Worksheet Patient Problems: Problems Problem Status Onset Dehydration Acute Hypokalemia Acute Hypoxia Acute Open abdominal wall wound Acute PEG tube malfunction Acute Pneumonia Acute UTI (urinary tract infection) Acute VRE (vancomycin-resistant Enterococci) Acute ~02/07/17
[2017-02-28 17:22] LABS: POTASSIUM 4.1 mEq/L (3.5-5.2)
[2017-02-28] MEDS: TPN 1 EA BAG IV SCH (20:28)
[2017-03-01] MEDS: HYDROmorphONE/DILAUDID 1 MG/ML SYR IVP PRN ×4 (02:16→14:54)
[2017-03-01 05:44] LABS: INR 1.15 (0.83-1.16); PROTIME(PATIENT) 14.6 SEC (12.0-15.0)
[2017-03-01 05:45] LABS: APTT 34.4 SEC (23.0-38.0)
[2017-03-01 05:56] LABS: % IMMATURE GRANULYOCYTES 0.8 % (0.0-1.1); ABSOLUTE IMMATURE GRANULOCYTES 0.07 10^3/uL (0.00-0.10); ADD DIFF? NO; ADD MORPH? NO; ADD SCAN? NO; ATYPICAL LYMPHOCYTE FLAG 0 (0-99); FRAGMENT RBC FLAG 10 (0-99); HEMATOCRIT 23.6 % (38.0-47.0); HEMOGLOBIN 7.2 g/dL (12.6-16.3); LEFT SHIFT FLG 10 (0-99); LIPEMIA HEMOLYSIS FLAG 80 (0-99); MEAN CELL HEMOGLOBIN 28.8 pg (27.9-34.1); MEAN CELL HEMOGLOBIN CONCENTR. 30.5 g/dL (32.4-36.7); MEAN CELL VOLUME 94.4 fL (81.5-99.8); MEAN PLATELET VOLUME 10.5 fL (8.7-11.7); PLATELET CLUMPS FLAG 10 (0-99); PLATELET COUNT 307 10^3/uL (150-400); RED CELL DISTRIBUTION WIDTH 19.4 % (11.5-15.2)
[2017-03-01 06:01] LABS: ALANINE AMINOTRANSFERASE 77 IU/L (9-52); ALBUMIN 2.7 g/dL (3.5-5.0); ALKALINE PHOSPHATASE 133 IU/L (38-126); ANION GAP 10 mEq/L (8-16); ASPARTATE AMINOTRANSFERASE 54 IU/L (14-46); BILIRUBIN,TOTAL 0.8 mg/dL (0.1-1.4); CALCIUM 8.6 mg/dL (8.5-10.4); CARBON DIOXIDE 19 mEq/l (22-31); CHLORIDE 108 mEq/L (97-110); CREATININE 0.4 mg/dL (0.6-1.0); GLOMERULAR FILTRATION RATE > 60; GLUCOSE 103 mg/dL (70-100); MAGNESIUM 1.9 mg/dL (1.6-2.3); POTASSIUM 3.7 mEq/L (3.5-5.2); SODIUM 137 mEq/L (134-144); TOTAL PROTEIN 5.6 g/dL (6.3-8.2); TRIGLYCERIDE 136 mg/dL (35-135)
[2017-03-01] MEDS: IPRATROPIUM/ALBUTEROL 3 ML DEYVIAL IH SCH ×4 (06:16→22:10)
[2017-03-01] MEDS ORDERED: POTASSIUM Cl (KCl) 50 ML IV ONE (07:50)
[2017-03-01] MEDS: ENOXAPARIN 40 MG/0.4 ML SYR SC SCH (08:59)
[2017-03-01] MEDS: PANTOPRAZOLE SODIUM 40 MG in NS 100 ML IV SCH ×2 (09:00→20:37)
[2017-03-01] MEDS: LORazepam 2 MG/ML INJ IVP SCH ×3 (09:00→22:05)
[2017-03-01] MEDS: fentaNYL 75 MCG PATCH TD SCH (09:01)
[2017-03-01] MEDS: FLUTICASONE HFA 44 MCG MDI IH SCH ×2 (10:14→20:20)
[2017-03-01] MEDS: LORazepam 2 MG/ML INJ IVP PRN (12:36)
[2017-03-01] MEDS: HALOPERIDOL LACT 5 MG/ML INJ IVP PRN ×2 (13:02→23:13)
--- NOTE | 2017-03-01 13:59 | HOSPPROG ---
Hospitalist Progress Note Assessment/Plan: This is a 56-year-old female presenting with abdominal pain. Reviewed her care with Dr Mckeon. # abdominal wall cellulitis/phlegmon w G tube leakage (skin red and excoriated) with nonfunctioning peg tube IV antibiotics/ Zosyn, Micafungin / stopped on 02/24/ now restarted due to fevers CT on 02/25 looks stable tube feedings initiated and now stopped today /patient yelling # right lower ext fx/distal tibial fx cast to be removed today Katerina MCCRARY, who works with Dr Rose [phone]/they evaluated the xray and noted they were all stable/ from their perspective, cast needs to be removed, a boot will be placed reviewed her care w Dr Mckeon, cont to spike fevers, will need cast removed, ER to do #subacute fx of left superior and inferior pubic rami supportive care suspect this is where her pain is # Complicated UTI secondary to pseudomonas treated # Severe protein calorie malnutrition. With low BMI of 17.6, TPN @ 31 ml/ 1/2 saline @ 50 ml # triglyceridemia poss from TPN #Anemia will check labs in am will likely need a transfusion # Hyperkalemia/hypokalemia adjusted per pharmacy in TPN # Chronic encephalopathy with acute. MRI showed nothing acute CT scan of head showed nothing acute axonal brain injury with tachycardia, sweating and htn suspect she may withdrawing from benzo's/ spoke w her mom/ she said she has been on them much improved with adding scheduled Ativan, increased to tid / she is much cleared # Hypertension/bp has been elevated catapres patch dose increased /now at 0.3 prn vasotec, hydralazine today is normotensive (will need close monitoring because of high dose Catapres patch) #Fever unclear etiol reviewed with Dr Mckeon remove cast Prophylaxis. High risk patient, Lovenox 40 Plan: recurrent fevers, will need cast off on right lower ext to r/o skin breakdown,etc. D/W wound care Subjective: No specific issues. Some pain. Objective: Vital Signs Temp Pulse Resp BP Pulse Ox 36.5 C 92 18 138/72 H 96 03/01/17 11:09 03/01/17 11:09 03/01/17 11:09 03/01/17 11:09 03/01/17 11:09 Microbiology 02/25/17 10:33 Blood Panel (PCR) - Final Blood No Organism Detected Laboratory Results 03/01/17 05:18 03/01/17 05:18 02/28/17 03/01/17 03/02/17 05:59 05:59 05:59 Intake Total 1124 1124 Output Total 1390 1230 30 Balance -266 -106 -30 PT 14.6 SEC (12.0-15.0) 03/01/17 05:18 INR 1.15 (0.83-1.16) 03/01/17 05:18 - Physical Exam Constitutional: chronically ill appearing, uncomfortable, cachectic Eyes: PERRL, anicteric sclera, EOMI Ears, Nose, Mouth, Throat: moist mucous membranes, hearing normal, ears appear normal Cardiovascular: regular rate and rhythym, No JVD, No edema Respiratory: no respiratory distress, no rales or rhonchi, reduced air movement Gastrointestinal: normoactive bowel sounds, tenderness, No guarding Skin: warm, erythema, induration Musculoskeletal: no joint effusions, muscular tenderness, generalized weakness Neurologic: No AAOx3 Psychiatric: anxious, poor insight, poor judgement, poor memory ICD10 Worksheet Patient Problems: Problems Problem Status Onset VRE (vancomycin-resistant Enterococci) Acute ~02/07/17 Pneumonia Acute Dehydration Acute Hypoxia Acute PEG tube malfunction Acute Hypokalemia Acute Open abdominal wall wound Acute UTI (urinary tract infection) Acute
--- NOTE | 2017-03-01 14:45 | WOCRNPDOC ---
WOCRN Advanced Assessment Note - Skin Integrity Problem, Advanced Assess Left Abdomen Drain Site Other Dressing Type: Ostomy appliance 4 inch drainable from clean supply room Dressing Description: Clean/Dry, Not Intact (undermining around opening) Exudate Amount: Moderate Exudate Color: Clear, Yellow, Green Integumentary Issue Intervention: Dressing Changed Michelle Wound Tissue: Erythema Wound Bed Color: [place] Skin Integrity Problem Comment: Michelle peg tube drain skin/tissue is minimally denuded, though the opening of the pouch had slipped to the 9 oclock area and this area is mild/moderately denuded out to 2 cm. The rest of the michelle drain skin is intact and only slightly erythematic. It is also not very painful. Roxane Sutton helped with pouch change. Suction used for entire change. No concerns. Wound care will round again 03/03. 3 inch coloplast appliance was used as there was only one 4 inch drainable in clean supply room. The 4 inch was left in the room as a spare. Right Lower Leg Surgical Wound/Incision Other Dressing Type: Cast Dressing Description: Clean/Dry, Intact Closure Description: Steri Strips, Approximated Exudate Amount: None Skin Integrity Problem Comment: Cast removed with no complications per Wendi Osorio [employer]SE [employer]ER. Roxane SUTTON and Devendra PALMA assisted. Two surgical incisions were on either side of the tib/fib area. Both healed with intact steri strips. No sign of infection. There is a small wound on the anterior ankle approx 1x1x0 that may have been a pressure wound from the cast, however this too is healing and raises no concerns. Therapy applyed offloading boot to leg right after cast was removed. Heel intact without breakdown.
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
[2017-03-01] MEDS: TPN 1 EA BAG IV SCH (20:40)
[2017-03-02] MEDS: HYDROmorphONE/DILAUDID 1 MG/ML SYR IVP PRN ×6 (00:08→22:05)
[2017-03-02] MEDS: HALOPERIDOL LACT 5 MG/ML INJ IVP PRN (03:30)
[2017-03-02] MEDS: IPRATROPIUM/ALBUTEROL 3 ML DEYVIAL IH SCH ×3 (05:51→18:13)
[2017-03-02] MEDS: LORazepam 2 MG/ML INJ IVP PRN (06:30)
[2017-03-02] MEDS: LORazepam 2 MG/ML INJ IVP SCH ×3 (09:49→21:04)
[2017-03-02] MEDS: PANTOPRAZOLE SODIUM 40 MG in NS 100 ML IV SCH ×2 (09:49→21:05)
[2017-03-02] MEDS: ENOXAPARIN 40 MG/0.4 ML SYR SC SCH (09:50)
--- NOTE | 2017-03-02 10:13 | SOAPPROG ---
SOAP Progress Note Assessment/Plan: Assessment: NO REAL CHANGE TODAY Plan:CONTINUE WOUND CARE 02/27/17 13:16 02/28/17 13:15 WOUND STABLE/ AFEBRILE/ CXR SHOWS BASILAR ATELECTASIS/ SLOWLY IMPROVING 03/02/17 10:13 AFEBRILE/WOUND SLOWLY IMPROVING/SEEMED MORE COMFORTABLE TODAY Objective: Vital Signs Temp Pulse Resp BP Pulse Ox 37.4 C 94 28 H 163/84 H 97 03/02/17 08:00 03/02/17 08:00 03/02/17 08:00 03/02/17 08:00 03/02/17 08:00 Microbiology 02/25/17 10:33 Blood Panel (PCR) - Final Blood No Organism Detected Laboratory Results 03/01/17 05:18 03/02/17 05:45 03/01/17 03/02/17 03/03/17 05:59 05:59 05:59 Intake Total 1124 0 Output Total 1230 1040 20 Balance -106 -1040 -20 PT 14.6 SEC (12.0-15.0) 03/01/17 05:18 INR 1.15 (0.83-1.16) 03/01/17 05:18 ICD10 Worksheet Patient Problems: Problems Problem Status Onset Dehydration Acute Hypokalemia Acute Hypoxia Acute Open abdominal wall wound Acute PEG tube malfunction Acute Pneumonia Acute UTI (urinary tract infection) Acute VRE (vancomycin-resistant Enterococci) Acute ~02/07/17
[2017-03-02] MEDS: FLUTICASONE HFA 44 MCG MDI IH SCH ×2 (10:22→21:20)
--- NOTE | 2017-03-02 12:56 | HOSPPROG ---
Hospitalist Progress Note Assessment/Plan: This is a 56-year-old female presenting with abdominal pain. # abdominal wall cellulitis/phlegmon w G tube leakage (skin red and excoriated) with nonfunctioning peg tube IV antibiotics/ Zosyn, Micafungin / stopped on 02/24/ now restarted due to fevers CT on 02/25 looks stable tube feedings initiated and now stopped today /patient yelling # right lower ext fx/distal tibial fx cast removed no signs of infection Katerina MCCRARY, who works with Dr Rose [phone]/they evaluated the xray and noted they were all stable/ from their perspective cast removed, a boot placed #subacute fx of left superior and inferior pubic rami supportive care suspect this is where her pain is # Complicated UTI secondary to pseudomonas treated # Severe protein calorie malnutrition. With low BMI of 17.6, TPN @ 31 ml/ 1/2 saline @ 50 ml # triglyceridemia poss from TPN #Anemia will check labs in am will likely need a transfusion # Hyperkalemia/hypokalemia adjusted per pharmacy in TPN # Chronic encephalopathy with acute. MRI showed nothing acute CT scan of head showed nothing acute axonal brain injury with tachycardia, sweating and htn suspect she may withdrawing from benzo's/ spoke w her mom/ she said she has been on them much improved with adding scheduled Ativan, increased to tid / she is much cleared # Hypertension/bp has been elevated catapress patch dose increased /now at 0.3 prn vasotec, hydralazine today is normotensive (will need close monitoring because of high dose Catapres patch) #Fever unclear etiol reviewed with Dr Mckeon remove cast Prophylaxis. High risk patient, Lovenox 40 Plan: unclear dispo plan..... await surgery recs Subjective: No issues. No pain. Objective: Vital Signs Temp Pulse Resp BP Pulse Ox 37.3 C 94 28 H 167/84 H 97 03/02/17 12:00 03/02/17 12:00 03/02/17 12:00 03/02/17 12:00 03/02/17 12:00 Microbiology 02/25/17 10:33 Blood Culture - Final Blood Staphylococcus Sp Coag Neg Blood Panel (PCR) - Final No Organism Detected Laboratory Results 03/01/17 05:18 03/02/17 05:45 03/01/17 03/02/17 03/03/17 05:59 05:59 05:59 Intake Total 1124 0 Output Total 1230 1040 20 Balance -106 -1040 -20 PT 14.6 SEC (12.0-15.0) 03/01/17 05:18 INR 1.15 (0.83-1.16) 03/01/17 05:18 - Physical Exam Constitutional: chronically ill appearing, cachectic Eyes: PERRL, anicteric sclera Ears, Nose, Mouth, Throat: moist mucous membranes, hearing normal Cardiovascular: No JVD, No edema Respiratory: no respiratory distress, reduced air movement Gastrointestinal: No tenderness, No ascites Skin: warm, normal color Musculoskeletal: no joint effusions, generalized weakness Neurologic: No AAOx3 Psychiatric: poor insight, poor judgement, poor memory ICD10 Worksheet Patient Problems: Problems Problem Status Onset VRE (vancomycin-resistant Enterococci) Acute ~02/07/17 Pneumonia Acute Dehydration Acute Hypoxia Acute PEG tube malfunction Acute Hypokalemia Acute Open abdominal wall wound Acute UTI (urinary tract infection) Acute
[2017-03-02 13:21] LABS: ANION GAP 12 mEq/L (8-16); CARBON DIOXIDE 19 mEq/l (22-31); CHLORIDE 110 mEq/L (97-110); CREATININE 0.3 mg/dL (0.6-1.0); GLOMERULAR FILTRATION RATE > 60; GLUCOSE 113 mg/dL (70-100); SODIUM 141 mEq/L (134-144)
--- NOTE | 2017-03-02 14:15 | PCMIDPN ---
Assessment/Plan: Assessment/Plan: 1. Fevers, leukocytosis: - Uncertain etiology. Ongoing infectious vs medication vs withdrawl, vs other -blood cx from 02/25 have only 1/4 bottles with CoNS and f/u blood cx from prior to any vanco is ngtd. Off antibiotics -REcent UA unremarkable. CXR with stable LLL consolidation. -REcdent Ct abd with improved inflammatory changes and no new abscess collections. - continue to observe off antibotics for now. 2. Intraabdominal abscess associated with PEG tube: - 1.8x 1.4x 1.2cm collection with phlegmon around peg tube. improved on recent Ct abd 02/25/17 -cultures with C. albicans -Last dose of antibiotics was on 02/24/17 -wbc noted Meds s/p vanco 500mg q12- 02/27/17-03/01/17 s/p zosyn 4.5gm q6-02/07/17-02/24/17---#18 micafungin 100mg daily- 02/09/17-02/24/17---#16 Subjective: temp curve overall has improved. pt sittting in chair. denies abd pain. renee sob. Objective: Vital Signs Temp Pulse Resp BP Pulse Ox 37.3 C 94 28 H 167/84 H 97 03/02/17 12:00 03/02/17 12:00 03/02/17 12:00 03/02/17 12:00 03/02/17 12:00 Microbiology 02/25/17 10:33 Blood Culture - Final Blood Staphylococcus Sp Coag Neg Blood Panel (PCR) - Final No Organism Detected Laboratory Results 03/01/17 05:18 03/02/17 05:45 03/01/17 03/02/17 03/03/17 05:59 05:59 05:59 Intake Total 1124 0 Output Total 1230 1040 30 Balance -106 -1040 -30 - Physical Exam General Appearance: alert, no apparent distress Respiratory: lungs clear Cardiac/Chest: regular rate, rhythm Extremities: other (RLE in cast), No swelling Abdomen: normal bowel sounds, non-tender, soft, other (peg with ostomy), No distended ICD10 Worksheet Patient Problems: Problems Problem Status Onset Dehydration Acute Hypokalemia Acute Hypoxia Acute Open abdominal wall wound Acute PEG tube malfunction Acute Pneumonia Acute UTI (urinary tract infection) Acute VRE (vancomycin-resistant Enterococci) Acute ~02/07/17
[2017-03-02] MEDS: 1/2 NS 1,000 ML IV SCH (16:57)
[2017-03-02] MEDS ORDERED: IPRATROPIUM/ALBUTEROL 3 ML DEYVIAL IH PRN (18:08)
[2017-03-02] MEDS ORDERED: PROTOCOL K PHOSPHATE 1 DOSE IV PRN (18:47)
[2017-03-02] MEDS ORDERED: PROTOCOL CALCIUM 1 DOSE IV PRN (18:47)
[2017-03-02] MEDS ORDERED: PROTOCOL POTASSIUM 1 DOSE MISC PRN (18:47)
[2017-03-02] MEDS ORDERED: PROTOCOL MAGNESIUM 1 DOSE IV PRN (18:47)
[2017-03-02 19:53] LABS: IONIZED CALCIUM 1.18 MMOL/L (1.12-1.30)
[2017-03-02 20:05] LABS: MAGNESIUM 2.1 mg/dL (1.6-2.3); POTASSIUM 3.7 mEq/L (3.5-5.2)
[2017-03-02] MEDS ORDERED: POTASSIUM Cl (KCl) 50 ML IV ONE (20:51)
[2017-03-02] MEDS: TPN 1 EA BAG IV SCH (21:05)
[2017-03-03] MEDS: HALOPERIDOL LACT 5 MG/ML INJ IVP PRN ×3 (00:49→20:09)
[2017-03-03] MEDS: HYDROmorphONE/DILAUDID 1 MG/ML SYR IVP PRN ×4 (00:54→17:21)
[2017-03-03 05:02] LABS: IONIZED CALCIUM 1.21 MMOL/L (1.12-1.30)
[2017-03-03 05:29] LABS: ANION GAP 9 mEq/L (8-16); CARBON DIOXIDE 20 mEq/l (22-31); CHLORIDE 113 mEq/L (97-110); CREATININE 0.4 mg/dL (0.6-1.0); GLOMERULAR FILTRATION RATE > 60; GLUCOSE 91 mg/dL (70-100); MAGNESIUM 2.1 mg/dL (1.6-2.3); POTASSIUM 4.2 mEq/L (3.5-5.2); SODIUM 142 mEq/L (134-144)
[2017-03-03] MEDS: PANTOPRAZOLE SODIUM 40 MG in NS 100 ML IV SCH ×2 (09:20→22:53)
[2017-03-03] MEDS: ENOXAPARIN 40 MG/0.4 ML SYR SC SCH (09:21)
[2017-03-03] MEDS: LORazepam 2 MG/ML INJ IVP SCH ×3 (09:21→22:52)
[2017-03-03] MEDS: FLUTICASONE HFA 44 MCG MDI IH SCH ×2 (09:44→21:28)
--- NOTE | 2017-03-03 10:34 | SOAPPROG ---
SOAP Progress Note Assessment/Plan: Assessment: 56 yo with chronic feeding tube and other medical issues Initially presented due to leaking around her G tube. Skin has cleared up I upsized the feeding tube to a 26F (was a 28F that was downsized to a 24F) Leaking under control I recommend resuming tube feeds (were stopped due to concern of pain) - Pain is more localized to pelvis and leg I will not see every day. Please do not hesitate to contact me with questions or concerns. Plan: 02/26/17 17:57 03/03/17 10:26 Objective: Vital Signs Temp Pulse Resp BP Pulse Ox 36.7 C 88 22 H 143/78 H 97 03/03/17 07:51 03/03/17 07:51 03/03/17 07:51 03/03/17 07:51 03/03/17 07:51 Microbiology 02/25/17 11:43 Blood Culture - Final Blood 02/25/17 10:33 Blood Culture - Final Blood Staphylococcus Sp Coag Neg Blood Panel (PCR) - Final No Organism Detected Laboratory Results 03/01/17 05:18 03/03/17 04:59 03/02/17 03/03/17 03/04/17 05:59 05:59 05:59 Intake Total 0 548 Output Total 1040 1115 90 Balance -1040 -567 -90 PT 14.6 SEC (12.0-15.0) 03/01/17 05:18 INR 1.15 (0.83-1.16) 03/01/17 05:18 ICD10 Worksheet Patient Problems: Problems Problem Status Onset Dehydration Acute Hypokalemia Acute Hypoxia Acute Open abdominal wall wound Acute PEG tube malfunction Acute Pneumonia Acute UTI (urinary tract infection) Acute VRE (vancomycin-resistant Enterococci) Acute ~02/07/17
--- NOTE | 2017-03-03 10:59 | PCMIDPN ---
Assessment/Plan: # Continued fever : CoNS in blood cx contaminant --repeat blood cx today, CXR --may consider more imaging if fever continues # R leg pain: no abnormalities on exam by report # abdominal wall abscess associated with PEG. Original PEG still in place and upsized to 26. S/p 16 days of Zosyn and micafungin. Antibiotics were discontinued 02/24/2017, off abx x 1 week --continue off antibiotic for now. --surgery recommending resuming PEG use # urinary colonization with PsA and VRE. --contact isolation Case reviewed with Sarai Suero NP Subjective: R leg pain continued fever Objective: Vital Signs Temp Pulse Resp BP Pulse Ox 36.7 C 84 28 H 143/78 H 97 03/03/17 07:51 03/03/17 09:45 03/03/17 09:45 03/03/17 07:51 03/03/17 09:45 Microbiology 02/25/17 11:43 Blood Culture - Final Blood 02/25/17 10:33 Blood Culture - Final Blood Staphylococcus Sp Coag Neg Blood Panel (PCR) - Final No Organism Detected Laboratory Results 03/01/17 05:18 03/03/17 04:59 03/02/17 03/03/17 03/04/17 05:59 05:59 05:59 Intake Total 0 548 Output Total 1040 1115 90 Balance -1040 -567 -90 Gen: chr ill appearing woman, moaning, not answering questions appropriately o/p dry mm L PEG with bilious fluid in bag overlying Abd: soft NT CV: RRR Chest : poor inspiratory effort, no abn breath sounds appreciated [place] in place Ext RLE extreme pain with minimal palpation LUE PICC ICD10 Worksheet Patient Problems: Problems Problem Status Onset Dehydration Acute Hypokalemia Acute Hypoxia Acute Open abdominal wall wound Acute PEG tube malfunction Acute Pneumonia Acute UTI (urinary tract infection) Acute VRE (vancomycin-resistant Enterococci) Acute ~02/07/17
[2017-03-03] MEDS: ACETAMINOPHEN 650 MG SUPP PR PRN (13:21)
--- NOTE | 2017-03-03 15:20 | HOSPPROG ---
Hospitalist Progress Note Assessment/Plan: This is a 56-year-old female presenting with abdominal pain. Reviewed her care with Dr Bowden. # abdominal wall cellulitis/phlegmon w G tube leakage (skin red and excoriated) with nonfunctioning peg tube IV antibiotics/ Zosyn, Micafungin / stopped on 02/24/ now restarted due to fevers CT on 02/25 looks stable tube feedings to be initiated again today/Dr Hogan upsized feeding tube to 26 [place] g tube with leakage/ appears to be bile # right lower ext fx/distal tibial fx cast removed in case this was source of fevers skin intake, dry, scaley, but no erythema, or rendness will need to f/u with Katerina OSUNA), who works with Dr Rose [phone]/has boot in place #fever cbc, blood cx ordered, chest xray ordered #subacute fx of left superior and inferior pubic rami supportive care suspect this is where her pain is # Complicated UTI secondary to pseudomonas # Severe protein calorie malnutrition. With low BMI of 17.6, TPN @ 31 ml/ 1/2 saline @ 50 ml # triglyceridemia poss from TPN # Hyperkalemia/hypokalemia adjusted per pharmacy in TPN # Chronic encephalopathy with acute. MRI showed nothing acute CT scan of head showed nothing acute axonal brain injury with tachycardia, sweating and htn suspect she may withdrawing from benzo's/ spoke w her mom/ she said she has been on them much improved with adding scheduled Ativan, increased to tid / # Hypertension/bp has been elevated catapres patch prn vasotec, hydralazine today is normotensive # Anemia. due to acute illness following Prophylaxis. High risk patient, Lovenox 40 Plan: cbc, blood cx/ chest xray/ patient to get suctioned by RT. Subjective: Sheldon is unable to tell me what hurts but cries when I look at her right leg. Objective: Vital Signs Temp Pulse Resp BP Pulse Ox 38.3 C H 88 32 H 149/79 H 99 03/03/17 13:18 03/03/17 13:18 03/03/17 13:18 03/03/17 12:00 03/03/17 13:18 Microbiology 02/25/17 11:43 Blood Culture - Final Blood 06/29/17 10:33 Blood Culture - Final Blood Staphylococcus Sp Coag Neg Blood Panel (PCR) - Final No Organism Detected Laboratory Results 03/01/17 05:18 03/03/17 04:59 03/02/17 03/03/17 03/04/17 05:59 05:59 05:59 Intake Total 0 548 Output Total 1040 1115 390 Balance -1040 -567 -390 PT 14.6 SEC (12.0-15.0) 03/01/17 05:18 INR 1.15 (0.83-1.16) 03/01/17 05:18 - Physical Exam Constitutional: chronically ill appearing, uncomfortable, No not in pain Eyes: PERRL Ears, Nose, Mouth, Throat: hearing normal Cardiovascular: regular rate and rhythym, No tachycardia Respiratory: no respiratory distress, other (increase rr when I'm evaluating her right lower ext) Gastrointestinal: normoactive bowel sounds, other (g tube with green drainage) Skin: other (right lower ext w steri strips intact/skin dry and peeling, more so on her toes and in between her toe areas) Neurologic: other (alert) ICD10 Worksheet Patient Problems: Problems Problem Status Onset Dehydration Acute Hypokalemia Acute Hypoxia Acute Open abdominal wall wound Acute PEG tube malfunction Acute Pneumonia Acute UTI (urinary tract infection) Acute VRE (vancomycin-resistant Enterococci) Acute ~02/07/17
[2017-03-03 17:04] LABS: ABSOLUTE IMMATURE GRANULOCYTES 0.06 10^3/uL (0.00-0.10); ADD DIFF? NO; ADD MORPH? NO; ADD SCAN? NO; ATYPICAL LYMPHOCYTE FLAG 40 (0-99); FRAGMENT RBC FLAG 10 (0-99); HEMATOCRIT 24.2 % (38.0-47.0); HEMOGLOBIN 7.7 g/dL (12.6-16.3); LEFT SHIFT FLG 10 (0-99); LIPEMIA HEMOLYSIS FLAG 80 (0-99); MEAN CELL HEMOGLOBIN 29.5 pg (27.9-34.1); MEAN CELL HEMOGLOBIN CONCENTR. 31.8 g/dL (32.4-36.7); MEAN CELL VOLUME 92.7 fL (81.5-99.8); MEAN PLATELET VOLUME 10.6 fL (8.7-11.7); PLATELET CLUMPS FLAG 10 (0-99); PLATELET COUNT 346 10^3/uL (150-400); RED BLOOD CELL COUNT 2.61 10^6/uL (4.18-5.33); RED CELL DISTRIBUTION WIDTH 19.1 % (11.5-15.2)
[2017-03-03] MEDS: 1/2 NS 1,000 ML IV SCH (18:38)
[2017-03-03] MEDS: TPN 1 EA BAG IV SCH (22:44)
[2017-03-04] MEDS: HYDROmorphONE/DILAUDID 1 MG/ML SYR IVP PRN ×4 (06:14→20:54)
[2017-03-04 06:29] LABS: IONIZED CALCIUM 1.19 MMOL/L (1.12-1.30)
[2017-03-04 06:51] LABS: POTASSIUM 3.7 mEq/L (3.5-5.2)
[2017-03-04] MEDS: PANTOPRAZOLE SODIUM 40 MG in NS 100 ML IV SCH ×2 (08:33→20:53)
[2017-03-04] MEDS: ENOXAPARIN 40 MG/0.4 ML SYR SC SCH (08:38)
[2017-03-04] MEDS: FLUTICASONE HFA 44 MCG MDI IH SCH ×2 (09:14→23:41)
[2017-03-04] MEDS: LORazepam 2 MG/ML INJ IVP SCH ×3 (09:27→23:03)
[2017-03-04] MEDS ORDERED: POTASSIUM Cl (KCl) 50 ML IV ONE (09:40)
[2017-03-04 13:11] LABS: COLOR YELLOW; LEUKOCYTE ESTERASE,URINE 2+ (NEGATIVE); NITRITE,URINE NEGATIVE (NEGATIVE)
[2017-03-04 13:21] LABS: MUCUS TRACE /lpf (NONE-1+); WBC,URINE 50-182 /hpf (0-3)
[2017-03-04 13:27] LABS: RBC,URINE NONE SEEN /hpf (0-3)
--- NOTE | 2017-03-04 15:25 | HOSPPROG ---
Hospitalist Progress Note Assessment/Plan: This is a 56-year-old female presenting with abdominal pain. Reviewed her care with Dr Bowden. # abdominal wall cellulitis/phlegmon w G tube leakage (skin red and excoriated) with nonfunctioning peg tube IV antibiotics/ Zosyn, Micafungin / stopped on 02/24/ now restarted due to fevers CT on 02/25 looks stable G-tube upsized to 26 turk[place] but appears to still be leaking - discussed with Dr Carrasco g tube with leakage/ appears to be bile # right lower ext fx/distal tibial fx cast removed in case this was source of fevers skin intake, dry, scaley, but no erythema, or rendness will need to f/u with Katerina OSUNA), who works with Dr Rose [phone]/has boot in place #fever cbc, blood cx ordered, chest xray ordered no fevers today #subacute fx of left superior and inferior pubic rami supportive care suspect this is where her pain is # Complicated UTI secondary to pseudomonas # Severe protein calorie malnutrition. With low BMI of 17.6, TPN @ 31 ml/ 1/2 saline @ 50 ml # triglyceridemia poss from TPN # Hyperkalemia/hypokalemia adjusted per pharmacy in TPN # Chronic encephalopathy with acute. MRI showed nothing acute CT scan of head showed nothing acute axonal brain injury with tachycardia, sweating and htn suspect she may withdrawing from benzo's/ spoke w her mom/ she said she has been on them much improved with adding scheduled Ativan, increased to tid / # Hypertension/bp has been elevated catapres patch prn vasotec, hydralazine today is normotensive # Anemia. due to acute illness following Prophylaxis. High risk patient, Lovenox 40 Subjective: g-tube is leaking. appears to be in pain Objective: Vital Signs Temp Pulse Resp BP Pulse Ox 37.6 C 84 28 H 112/61 96 03/04/17 12:00 03/04/17 12:00 03/04/17 12:00 03/04/17 12:00 03/04/17 12:00 Laboratory Results 03/03/17 16:30 03/04/17 06:20 03/03/17 03/04/17 03/05/17 05:59 05:59 05:59 Intake Total 548 1000 Output Total 1115 1290 25 Balance -567 -290 -25 PT 14.6 SEC (12.0-15.0) 03/01/17 05:18 INR 1.15 (0.83-1.16) 03/01/17 05:[address] carrasco - Physical Exam Constitutional: no apparent distress, chronically ill appearing, No appears nourished Eyes: anicteric sclera Ears, Nose, Mouth, Throat: dry mucous membranes Cardiovascular: regular rate and rhythym, no murmur, rub, or gallop Respiratory: no respiratory distress Gastrointestinal: other (leaking g-tube) Neurologic: No AAOx3 Psychiatric: not encephalopathic ICD10 Worksheet Patient Problems: Problems Problem Status Onset Dehydration Acute Hypokalemia Acute Hypoxia Acute Open abdominal wall wound Acute PEG tube malfunction Acute Pneumonia Acute UTI (urinary tract infection) Acute VRE (vancomycin-resistant Enterococci) Acute ~02/07/17
[2017-03-04] MEDS: HALOPERIDOL LACT 5 MG/ML INJ IVP PRN (16:45)
--- NOTE | 2017-03-04 17:49 | PCMIDPN ---
Assessment/Plan: Assessment: Infected PEG tube site - Patient has completed broad-spectrum coverage for noted abdominal wall collections around the PEG tube site. The PEG tube has been changed and up sized. Repeat CT scan last week shows no residual significant inflammation. Fever- source is unlikely to be the PEG tube site given the marked clinical improvement. Will repeat urinalysis and see if urinary tract infection may be to blame. Plan: 1. Hold off on antibiotics while evaluating fever source. 2. urinalysis - if worrisome will ask for catheter change and repeat sample for UA and culture. Subjective: Patient is lying in her hospital bed. She has no new complaint. Still having fevers daily. Objective: No antibiotics. Vital Signs Temp Pulse Resp BP Pulse Ox 37.3 C 89 28 H 161/95 H 96 03/04/17 15:16 03/04/17 15:16 03/04/17 15:16 03/04/17 15:16 03/04/17 15:16 Laboratory Results 03/03/17 16:30 03/04/17 06:20 03/03/17 03/04/17 03/05/17 05:59 05:59 05:59 Intake Total 548 1000 Output Total 1115 1290 675 Balance -567 -290 -675 C-Reactive Protein 124.3 mg/L (<10.0) H 03/03/17 05:00 - Physical Exam General Appearance: WD/WN, alert, thin, non-toxic, other ( Neurologically injured) Respiratory: lungs clear, normal breath sounds, No respiratory distress Cardiac/Chest: regular rate, rhythm, No tachycardia Extremities: non-tender, normal inspection Skin: normal color, warm/dry, No rash ICD10 Worksheet Patient Problems: Problems Problem Status Onset Dehydration Acute Hypokalemia Acute Hypoxia Acute Open abdominal wall wound Acute PEG tube malfunction Acute Pneumonia Acute UTI (urinary tract infection) Acute VRE (vancomycin-resistant Enterococci) Acute ~02/07/17
[2017-03-04] MEDS: 1/2 NS 1,000 ML IV SCH (20:53)
[2017-03-04] MEDS: TPN 1 EA BAG IV SCH (20:54)
[2017-03-04 21:37] LABS: COLOR YELLOW; LEUKOCYTE ESTERASE,URINE 3+ (NEGATIVE); NITRITE,URINE NEGATIVE (NEGATIVE)
[2017-03-04 21:43] LABS: BACTERIA TRACE /hpf (NONE SEEN); RBC,URINE 50-182 /hpf (0-3); WBC,URINE 50-182 /hpf (0-3)
[2017-03-04] MEDS: ACETAMINOPHEN 650 MG SUPP PR PRN (23:04)
[2017-03-05] MEDS: POTASSIUM Cl (KCl) 100 ML IV SCH ×2 (01:37→02:58)
[2017-03-05 06:00] LABS: % IMMATURE GRANULYOCYTES 1.4 % (0.0-1.1); ABSOLUTE IMMATURE GRANULOCYTES 0.11 10^3/uL (0.00-0.10); ADD DIFF? NO; ADD MORPH? NO; ADD SCAN? NO; ATYPICAL LYMPHOCYTE FLAG 90 (0-99); FRAGMENT RBC FLAG 10 (0-99); HEMATOCRIT 24.4 % (38.0-47.0); HEMOGLOBIN 7.5 g/dL (12.6-16.3); IONIZED CALCIUM 1.21 MMOL/L (1.12-1.30); LEFT SHIFT FLG 20 (0-99); LIPEMIA HEMOLYSIS FLAG 80 (0-99); MEAN CELL HEMOGLOBIN 28.4 pg (27.9-34.1); MEAN CELL HEMOGLOBIN CONCENTR. 30.7 g/dL (32.4-36.7); MEAN CELL VOLUME 92.4 fL (81.5-99.8); MEAN PLATELET VOLUME 10.6 fL (8.7-11.7); PLATELET CLUMPS FLAG 30 (0-99); PLATELET COUNT 370 10^3/uL (150-400); RED BLOOD CELL COUNT 2.64 10^6/uL (4.18-5.33)
[2017-03-05 06:09] LABS: ANION GAP 11 mEq/L (8-16); CALCIUM 8.8 mg/dL (8.5-10.4); CARBON DIOXIDE 19 mEq/l (22-31); CHLORIDE 113 mEq/L (97-110); CREATININE 0.4 mg/dL (0.6-1.0); GLOMERULAR FILTRATION RATE > 60; GLUCOSE 90 mg/dL (70-100); MAGNESIUM 2.1 mg/dL (1.6-2.3); POTASSIUM 4.6 mEq/L (3.5-5.2); SODIUM 143 mEq/L (134-144)
[2017-03-05] MEDS: LORazepam 2 MG/ML INJ IVP SCH ×3 (09:04→21:34)
[2017-03-05] MEDS: ENOXAPARIN 30 MG/0.3 ML SYR SC SCH (09:06)
[2017-03-05] MEDS: PANTOPRAZOLE SODIUM 40 MG in NS 100 ML IV SCH ×2 (09:06→21:34)
[2017-03-05] MEDS: FLUTICASONE HFA 44 MCG MDI IH SCH ×2 (09:52→22:16)
--- NOTE | 2017-03-05 10:57 | PCMIDPN ---
Assessment/Plan: 1. History of fever: Urinary catheter was changed yesterday. Urine culture is pending, although this will almost certainly grow bacteria. Would continue to hold off on antibiotics for now. Also of note, she is mildly tachypneic today, and a chest x-ray recently showed a possible increasing left lower lobe opacity. If she has a recurrent fever and her white blood cell count increases, would consider CT of the chest. 2. Nonfunctioning upsized PEG tube: Dr. Hogan to see her today. The patient completed 16 days of broad-spectrum antibiotics, but unfortunately that tube is nonfunctional and she remains on TPN. Subjective: Apparently had quite a bit of mouth debris cleaned out this morning. Nurse told me that she was quite tachypneic, but less so now after Ativan. The patient is alert, but only moans and grumbles. No diarrhea. Objective: No antibiotics T-max 37.7degrees Vital Signs Temp Pulse Resp BP Pulse Ox 36.1 C 84 20 170/99 H 98 03/05/17 08:00 03/05/17 09:55 03/05/17 09:55 03/05/17 08:00 03/05/17 09:55 Microbiology 02/27/17 08:43 Blood Culture - Final Blood 02/27/17 07:45 Blood Culture - Final Blood Laboratory Results 03/05/17 05:40 03/05/17 05:40 03/04/17 03/05/17 03/06/17 05:59 05:59 05:59 Intake Total 1000 1970 Output Total 1290 1025 40 Balance -290 945 -40 C-Reactive Protein 124.3 mg/L (<10.0) H 03/03/17 05:00 Urinalysis with pyuria Blood cultures x2 on the 5th are negative Urine culture on the 6th is pending CRP 124 - Physical Exam General Appearance: alert, cachetic (Only opens her mouth approximately 10 degrees. I cannot appreciate any thrush.), other EENT: No scleral icterus Respiratory: lungs clear (Anterolaterally. Mildly tachypneic.) Cardiac/Chest: regular rate, rhythm, No tachycardia Abdomen: other (Ostomy bag covering nonfunctional PEG tube) Skin: No rash ICD10 Worksheet Patient Problems: Problems Problem Status Onset Dehydration Acute Hypokalemia Acute Hypoxia Acute Open abdominal wall wound Acute PEG tube malfunction Acute Pneumonia Acute UTI (urinary tract infection) Acute VRE (vancomycin-resistant Enterococci) Acute ~02/07/17
--- NOTE | 2017-03-05 12:17 | HOSPPROG ---
Hospitalist Progress Note Assessment/Plan: This is a 56-year-old female presenting with abdominal pain. Reviewed her care with Dr Bowden. # abdominal wall cellulitis/phlegmon w G tube leakage (skin red and excoriated) with nonfunctioning peg tube IV antibiotics/ Zosyn, Micafungin / stopped on 02/24/ CT on 02/25 looks stable G-tube upsized to 26 tai[place]ese but appears to still be leaking - discussed with Dr Carrasco g tube with leakage/ appears to be bile # right lower ext fx/distal tibial fx cast removed in case this was source of fevers skin intake, dry, scaley, but no erythema, or rendness will need to f/u with Katerina OSUNA), who works with Dr Rose [phone]/has boot in place #fever no further fevers x-ray shows possibly worse pneumonia but holding off on antibiotics #subacute fx of left superior and inferior pubic rami supportive care suspect this is where her pain is # Complicated UTI secondary to pseudomonas # Severe protein calorie malnutrition. With low BMI of 17.6, TPN @ 31 ml/ 1/2 saline @ 50 ml # triglyceridemia poss from TPN # Hyperkalemia/hypokalemia adjusted per pharmacy in TPN # Chronic encephalopathy with acute. MRI showed nothing acute CT scan of head showed nothing acute axonal brain injury with tachycardia, sweating and htn suspect she may withdrawing from benzo's/ spoke w her mom/ she said she has been on them much improved with adding scheduled Ativan, increased to tid / # Hypertension/bp has been elevated catapres patch prn vasotec, hydralazine today is normotensive # Anemia. due to acute illness following Prophylaxis. High risk patient, Lovenox 40 Subjective: no new events. No further fevers Objective: Vital Signs Temp Pulse Resp BP Pulse Ox 36.1 C 84 20 170/99 H 98 03/05/17 08:00 03/05/17 09:55 03/05/17 09:55 03/05/17 08:00 03/05/17 09:55 Microbiology 02/27/17 08:43 Blood Culture - Final Blood 02/27/17 07:45 Blood Culture - Final Blood Laboratory Results 03/05/17 05:40 03/05/17 05:40 03/04/17 03/05/17 03/06/17 05:59 05:59 05:59 Intake Total 1000 1970 Output Total 1290 1025 40 Balance -290 945 -40 PT 14.6 SEC (12.0-15.0) 03/01/17 05:18 INR 1.15 (0.83-1.16) 03/01/17 05:18 - Physical Exam Constitutional: chronically ill appearing Eyes: anicteric sclera, EOMI Ears, Nose, Mouth, Throat: moist mucous membranes Cardiovascular: regular rate and rhythym, no murmur, rub, or gallop Respiratory: no respiratory distress, no rales or rhonchi, clear to auscultation Gastrointestinal: normoactive bowel sounds, other ( continued leaking G-tube) Skin: warm Neurologic: No AAOx3 ICD10 Worksheet Patient Problems: Problems Problem Status Onset Dehydration Acute Hypokalemia Acute Hypoxia Acute Open abdominal wall wound Acute PEG tube malfunction Acute Pneumonia Acute UTI (urinary tract infection) Acute VRE (vancomycin-resistant Enterococci) Acute ~02/07/17
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
[2017-03-05] MEDS: TPN 1 EA BAG IV SCH (21:34)
[2017-03-05] MEDS: HYDROmorphONE/DILAUDID 1 MG/ML SYR IVP PRN (21:35)
[2017-03-06] MEDS: HALOPERIDOL LACT 5 MG/ML INJ IVP PRN (01:13)
[2017-03-06] MEDS: HYDROmorphONE/DILAUDID 1 MG/ML SYR IVP PRN ×4 (01:13→22:17)
[2017-03-06] MEDS: ACETAMINOPHEN 650 MG SUPP PR PRN (04:54)
[2017-03-06] MEDS: 1/2 NS 1,000 ML IV SCH (05:32)
[2017-03-06 06:36] LABS: POTASSIUM 4.4 mEq/L (3.5-5.2)
[2017-03-06] MEDS: LORazepam 2 MG/ML INJ IVP SCH ×3 (10:23→22:17)
[2017-03-06] MEDS: ENOXAPARIN 30 MG/0.3 ML SYR SC SCH (10:23)
[2017-03-06] MEDS: PANTOPRAZOLE SODIUM 40 MG in NS 100 ML IV SCH ×2 (10:23→22:19)
[2017-03-06] MEDS: FLUTICASONE HFA 44 MCG MDI IH SCH ×2 (10:54→21:35)
--- NOTE | 2017-03-06 12:47 | SOAPPROG ---
SOAP Progress Note Assessment/Plan: Assessment: 56 yo with chronic feeding tube and other medical issues Initially presented due to leaking around her G tube. Skin has cleared up I upsized the feeding tube to a 26F (was a 28F that was downsized to a 24F) Leaking under control I recommend resuming tube feeds - was doing well with 30 cc bolus q 4 hours. Try that again and then advance. Plan: 02/26/17 17:57 03/03/17 10:26 03/06/17 12:46 Objective: Vital Signs Temp Pulse Resp BP Pulse Ox 36.1 C 83 32 H 149/85 H 99 03/06/17 11:03 03/06/17 11:03 03/06/17 11:03 03/06/17 11:03 03/06/17 11:03 Laboratory Results 03/05/17 05:40 03/06/17 05:55 03/05/17 03/06/17 03/07/17 05:59 05:59 05:59 Intake Total 1970 2540 Output Total 1025 910 Balance 945 1630 PT 14.6 SEC (12.0-15.0) 03/01/17 05:18 INR 1.15 (0.83-1.16) 03/01/17 05:18 ICD10 Worksheet Patient Problems: Problems Problem Status Onset Dehydration Acute Hypokalemia Acute Hypoxia Acute Open abdominal wall wound Acute PEG tube malfunction Acute Pneumonia Acute UTI (urinary tract infection) Acute VRE (vancomycin-resistant Enterococci) Acute ~02/07/17
--- NOTE | 2017-03-06 13:11 | PCMIDPN ---
Assessment/Plan: # H/o Fever, none for 48hrs. WBC normal. 03/03 blood cx negative --continue off antibiotics # R leg pain: no abnormalities on exam , difficult to localize where pain originating, does not seem to be hip # abdominal wall abscess associated with PEG. Original PEG still in place and upsized to 26. S/p 16 days of Zosyn and micafungin. Antibiotics were discontinued 02/24/2017, off abx x 2 weeks # urinary colonization with PsA -would not treat Subjective: no specific events overnight still with trouble with PEG Objective: Vital Signs Temp Pulse Resp BP Pulse Ox 36.1 C 83 32 H 149/85 H 99 03/06/17 11:03 03/06/17 11:03 03/06/17 11:03 03/06/17 11:03 03/06/17 11:03 Laboratory Results 03/05/17 05:40 03/06/17 05:55 03/05/17 03/06/17 03/07/17 05:59 05:59 05:59 Intake Total 1970 2540 Output Total 1025 910 Balance 945 1630 C-Reactive Protein 124.3 mg/L (<10.0) H 03/03/17 05:00 - Physical Exam General Appearance: alert, cachetic, thin EENT: scleral icterus, thrush Respiratory: chest non-tender, lungs clear Cardiac/Chest: regular rate, rhythm Extremities: other (wasting of LE, R leg contracted) Abdomen: non-tender, soft, other (PEG, minimal drainage in bag overlying) Pelvic Exam: brody Skin: rash Neuro/Psych: alert, confused - Line/s RUE PICC Lines: No drainage, No erythema ICD10 Worksheet Patient Problems: Problems Problem Status Onset Dehydration Acute Hypokalemia Acute Hypoxia Acute Open abdominal wall wound Acute PEG tube malfunction Acute Pneumonia Acute UTI (urinary tract infection) Acute VRE (vancomycin-resistant Enterococci) Acute ~02/07/17
--- NOTE | 2017-03-06 14:00 | HOSPPROG ---
Hospitalist Progress Note Assessment/Plan: This is a 56-year-old female presenting with abdominal pain # abdominal wall cellulitis/phlegmon w G tube leakage (skin red and excoriated) with nonfunctioning peg tube IV antibiotics/ Zosyn, Micafungin / stopped on 02/24/ CT on 02/25 looks stable G-tube upsized to 26 sinhala - discussed with Dr. Hogan he did not see any leaking with bolus of fluid. Will try tube feeds with small amounts of bolusing initially # right lower ext fx/distal tibial fx cast removed in case this was source of fevers skin intake, dry, scaley, but no erythema, or rendness will need to f/u with Katerina OSUNA), who works with Dr Rose [phone]/has boot in place #fever no further fevers x 48 hours x-ray shows possibly worse pneumonia but holding off on antibiotics #subacute fx of left superior and inferior pubic rami supportive care suspect this is where her pain is # Pseudomonas in urine * no treatment # Severe protein calorie malnutrition. With low BMI of 17.6, TPN @ 31 ml/ 1/2 saline @ 50 ml # triglyceridemia poss from TPN # Hyperkalemia/hypokalemia adjusted per pharmacy in TPN # Chronic encephalopathy with acute. MRI showed nothing acute CT scan of head showed nothing acute axonal brain injury with tachycardia, sweating and htn suspect she may withdrawing from benzo's/ spoke w her mom/ she said she has been on them much improved with adding scheduled Ativan, increased to tid / # Hypertension/bp has been elevated catapres patch prn vasotec, hydralazine today is normotensive # Anemia. due to acute illness following Prophylaxis. High risk patient, Lovenox 30 Subjective: no new events Objective: Vital Signs Temp Pulse Resp BP Pulse Ox 36.1 C 83 32 H 149/85 H 99 03/06/17 11:03 03/06/17 11:03 03/06/17 11:03 03/06/17 11:03 03/06/17 11:03 Laboratory Results 03/05/17 05:40 03/06/17 05:55 03/05/17 03/06/17 03/07/17 05:59 05:59 05:59 Intake Total 1970 2540 Output Total 1025 910 Balance 945 1630 PT 14.6 SEC (12.0-15.0) 03/01/17 05:18 INR 1.15 (0.83-1.16) 03/01/17 05:18 discuss with surgery - Physical Exam Constitutional: no apparent distress, not in pain, chronically ill appearing Eyes: anicteric sclera, EOMI Cardiovascular: regular rate and rhythym Respiratory: no respiratory distress Gastrointestinal: normoactive bowel sounds, soft, non-tender abdomen, no palpable masses Neurologic: No AAOx3 ICD10 Worksheet Patient Problems: Problems Problem Status Onset Dehydration Acute Hypokalemia Acute Hypoxia Acute Open abdominal wall wound Acute PEG tube malfunction Acute Pneumonia Acute UTI (urinary tract infection) Acute VRE (vancomycin-resistant Enterococci) Acute ~02/07/17
[2017-03-06 18:38] LABS: POTASSIUM 7.3 mEq/L (3.5-5.2)
[2017-03-06 19:08] LABS: POTASSIUM 3.9 mEq/L (3.5-5.2)
[2017-03-06] MEDS ORDERED: POTASSIUM Cl (KCl) 50 ML IV ONE (21:53)
[2017-03-06] MEDS: TPN 1 EA BAG IV SCH (22:19)
[2017-03-07] MEDS: ACETAMINOPHEN 650 MG SUPP PR PRN (00:49)
[2017-03-07] MEDS: HYDROmorphONE/DILAUDID 1 MG/ML SYR IVP PRN ×7 (01:20→21:52)
[2017-03-07 05:25] LABS: ANION GAP 11 mEq/L (8-16); CALCIUM 9.1 mg/dL (8.5-10.4); CARBON DIOXIDE 18 mEq/l (22-31); CHLORIDE 113 mEq/L (97-110); CREATININE 0.4 mg/dL (0.6-1.0); GLOMERULAR FILTRATION RATE > 60; GLUCOSE 96 mg/dL (70-100); POTASSIUM 4.8 mEq/L (3.5-5.2); SODIUM 142 mEq/L (134-144)
[2017-03-07] MEDS: FLUTICASONE HFA 44 MCG MDI IH SCH ×2 (08:40→21:12)
[2017-03-07] MEDS: ENOXAPARIN 30 MG/0.3 ML SYR SC SCH (09:07)
[2017-03-07] MEDS: LORazepam 2 MG/ML INJ IVP SCH ×3 (09:07→21:52)
--- NOTE | 2017-03-07 09:40 | HOSPPROG ---
Hospitalist Progress Note Assessment/Plan: #Fever: none since (03/03). Neg blood cxs (03/03) #PEG-related abdominal wall abscess: s/p days Zosyn/Micafungin (stopped 02/24) #Leaking feeding tube: Dr. Hogan saw today. Had been upgraded to 26F. Trial sitting up more. May need GJ tube or follow-through study tomorrow #Urinary Pseudomonas colonization: no tx per ID #Right tib/fib fracture: cast removed for concern for infection source. has boot. FU with Dr. Rose' office #Subacute sup/inf pubic ramus fracture: supportive care #Severe protein caloric malnutrition: BMI 17.6. Cont TPN #Hyperkalemia: resolved with TPN adjustment #Acute on chronic encephalopathy: tracks with eyes #Normocytic anemia: H/H trending down past week. No active bleeding, monitor closely #Accelerated HTN: improved. Cont clonidine, PRN IV antihypertensives #Diet: TPN #DVT ppx: Lovenox #Disp: warrants inpt admission with electrolyte abnormalities, malnutrition. Cont TPN, serial labs Subjective: groaning Objective: Vital Signs Temp Pulse Resp BP Pulse Ox 36.8 C 80 18 152/75 H 97 03/07/17 08:00 03/07/17 08:43 03/07/17 08:43 03/07/17 08:00 03/07/17 08:43 Microbiology 03/04/17 21:15 Urine Culture - Final Urine,Catheterized Pseudomonas Aeruginosa 02/25/17 10:33 Blood Culture - Final Blood Staphylococcus Sp Coag Neg Blood Panel (PCR) - Final No Organism Detected Laboratory Results 03/05/17 05:40 03/07/17 04:50 03/06/17 03/07/17 03/08/17 05:59 05:59 05:59 Intake Total 2540 100 Output Total 910 752 630 Balance 1630 -677 -302 PT 14.6 SEC (12.0-15.0) 03/01/17 05:18 INR 1.15 (0.83-1.16) 03/01/17 05:18 - Physical Exam Constitutional: cachectic Eyes: PERRL Ears, Nose, Mouth, Throat: moist mucous membranes Cardiovascular: regular rate and rhythym, no murmur, rub, or gallop Respiratory: no respiratory distress Gastrointestinal: normoactive bowel sounds, other (G-tube with small leakage) Genitourinary: no bladder fullness Skin: warm Musculoskeletal: full muscle strength Neurologic: other (groaning) Psychiatric: encephalopathic ICD10 Worksheet Patient Problems: Problems Problem Status Onset Dehydration Acute Hypokalemia Acute Hypoxia Acute Open abdominal wall wound Acute PEG tube malfunction Acute Pneumonia Acute UTI (urinary tract infection) Acute VRE (vancomycin-resistant Enterococci) Acute ~02/07/17
[2017-03-07] MEDS: PANTOPRAZOLE SODIUM 40 MG in NS 100 ML IV SCH ×2 (11:28→20:17)
--- NOTE | 2017-03-07 13:18 | SOAPPROG ---
SOAP Progress Note Assessment/Plan: Assessment: 56 yo with chronic feeding tube and other medical issues Initially presented due to leaking around her G tube. Skin has cleared up I upsized the feeding tube to a 26F (was a 28F that was downsized to a 24F) Leaking persistent and positional Try sitting up more. 30 cc of air after tube feeds. May need to exchange for GJ or do study S: Discomfort today Plan: 02/26/17 17:57 03/03/17 10:26 03/06/17 12:46 03/07/17 13:16 Objective: Vital Signs Temp Pulse Resp BP Pulse Ox 37.3 C 84 16 157/84 H 99 03/07/17 11:49 03/07/17 11:49 03/07/17 11:49 03/07/17 11:49 03/07/17 11:49 Microbiology 03/04/17 21:15 Urine Culture - Final Urine,Catheterized Pseudomonas Aeruginosa 02/25/17 10:33 Blood Culture - Final Blood Staphylococcus Sp Coag Neg Blood Panel (PCR) - Final No Organism Detected Laboratory Results 03/05/17 05:40 03/07/17 04:50 03/06/17 03/07/17 03/08/17 05:59 05:59 05:59 Intake Total 2540 100 Output Total 910 515 830 Balance 1630 -415 -830 PT 14.6 SEC (12.0-15.0) 03/01/17 05:18 INR 1.15 (0.83-1.16) 03/01/17 05:18 Physical Exam - Physical Exam General Appearance: thin Abdomen: other (erythema on abdomen basically resolved. I injected 60 cc of water and about 10 cc leaked out around the tube) ICD10 Worksheet Patient Problems: Problems Problem Status Onset Dehydration Acute Hypokalemia Acute Hypoxia Acute Open abdominal wall wound Acute PEG tube malfunction Acute Pneumonia Acute UTI (urinary tract infection) Acute VRE (vancomycin-resistant Enterococci) Acute ~02/07/17
[2017-03-07] MEDS: LORazepam 2 MG/ML INJ IVP PRN (14:02)
[2017-03-07] MEDS: 1/2 NS 1,000 ML IV SCH (17:03)
[2017-03-07] MEDS: TPN 1 EA BAG IV SCH (20:17)
[2017-03-08] MEDS: HYDROmorphONE/DILAUDID 1 MG/ML SYR IVP PRN ×7 (02:52→21:30)
[2017-03-08 05:14] LABS: INR 1.03 (0.83-1.16); PROTIME(PATIENT) 13.4 SEC (12.0-15.0)
[2017-03-08 05:15] LABS: APTT 28.2 SEC (23.0-38.0)
[2017-03-08 05:26] LABS: % IMMATURE GRANULYOCYTES 2.5 % (0.0-1.1); ABSOLUTE IMMATURE GRANULOCYTES 0.17 10^3/uL (0.00-0.10); ADD DIFF? NO; ADD MORPH? NO; ADD SCAN? NO; ATYPICAL LYMPHOCYTE FLAG 90 (0-99); FRAGMENT RBC FLAG 10 (0-99); HEMATOCRIT 24.4 % (38.0-47.0); HEMOGLOBIN 7.5 g/dL (12.6-16.3); LEFT SHIFT FLG 30 (0-99); LIPEMIA HEMOLYSIS FLAG 80 (0-99); MEAN CELL HEMOGLOBIN 28.5 pg (27.9-34.1); MEAN CELL HEMOGLOBIN CONCENTR. 30.7 g/dL (32.4-36.7); MEAN CELL VOLUME 92.8 fL (81.5-99.8); MEAN PLATELET VOLUME 10.7 fL (8.7-11.7); PLATELET CLUMPS FLAG 0 (0-99); PLATELET COUNT 457 10^3/uL (150-400); RED BLOOD CELL COUNT 2.63 10^6/uL (4.18-5.33); RED CELL DISTRIBUTION WIDTH 18.7 % (11.5-15.2)
[2017-03-08 05:32] LABS: ALANINE AMINOTRANSFERASE 116 IU/L (9-52); ALBUMIN 2.7 g/dL (3.5-5.0); ALKALINE PHOSPHATASE 218 IU/L (38-126); ANION GAP 10 mEq/L (8-16); ASPARTATE AMINOTRANSFERASE 54 IU/L (14-46); BILIRUBIN,TOTAL 0.8 mg/dL (0.1-1.4); CALCIUM 8.5 mg/dL (8.5-10.4); CARBON DIOXIDE 19 mEq/l (22-31); CHLORIDE 109 mEq/L (97-110); CREATININE 0.3 mg/dL (0.6-1.0); GLOMERULAR FILTRATION RATE > 60; GLUCOSE 87 mg/dL (70-100); POTASSIUM 4.5 mEq/L (3.5-5.2); SODIUM 138 mEq/L (134-144); TOTAL PROTEIN 5.9 g/dL (6.3-8.2); TRIGLYCERIDE 157 mg/dL (35-135)
[2017-03-08] MEDS: PANTOPRAZOLE SODIUM 40 MG in NS 100 ML IV SCH ×2 (08:05→20:58)
[2017-03-08] MEDS: ENOXAPARIN 30 MG/0.3 ML SYR SC SCH (08:06)
[2017-03-08] MEDS: LORazepam 2 MG/ML INJ IVP SCH ×3 (08:09→21:05)
[2017-03-08] MEDS: FLUTICASONE HFA 44 MCG MDI IH SCH ×2 (11:37→23:39)
--- NOTE | 2017-03-08 13:41 | WOCRNPDOC ---
WOCRN Advanced Assessment Note - Skin Integrity Problem, Advanced Assess Left Abdomen Drain Site Dressing Type: Open to Air (Nursing removed drain pouch prior to my assessment) Exudate Color: Brown (tube feed) Integumentary Issue Intervention: Dressing Changed Michelle Wound Tissue: Denuded Wound Bed Color: Red Wound Bed Constitution: Smooth Tissue Skin Integrity Problem Comment: Denuded, partial-thickness tissue loss noted circumferentially around PEG tube, margins slightly further out than in previous assessments, between 0.7 and 1cm. Tube feed was coming out from around the tube during my assessment, and HOME HEALTH CARE RESPIRATORY THERAPIST had to apply suction in order for pouch to be applied. Site re-pouched, though w/ near constant leakage of both tube feed and gastric effluent, this remains a challenge for nursing. engineering research manager [place] present and assisting.
--- NOTE | 2017-03-08 15:25 | SOAPPROG ---
SOAP Progress Note Assessment/Plan: 03/08/17 15:20 Assessment: 1) leakage at PEG site is secondary to the movement of the external wafer on the PEG tube. 2) Profuse diaphoresis and elevated platelets, now off antibiotics. 3) LFT elevation Plan: 1) secure wafer ( supplies requested ) 2) Suggest f/u Abdominal/pelvic CT to re-evaluate abdominal wall abscess for resolution/ metastatic spread of infection to liver Consider chest CT to complete w/u Subjective: unable to communicate Objective: Vital Signs Temp Pulse Resp BP Pulse Ox 37.5 C 93 20 170/95 H 98 03/08/17 12:00 03/08/17 12:00 03/08/17 12:00 03/08/17 12:00 03/08/17 12:00 Laboratory Results 03/08/17 04:45 03/08/17 04:45 03/07/17 03/08/17 03/09/17 05:59 05:59 05:59 Intake Total 100 150 Output Total 515 1680 Balance -415 -1530 PT 13.4 SEC (12.0-15.0) 03/08/17 04:45 INR 1.03 (0.83-1.16) 03/08/17 04:45 - Time Spent With Patient Time Spent With Patient: 25 minutes Physical Exam - Physical Exam General Appearance: moderate distress (moaning) Neck: supple, normal inspection Respiratory: normal breath sounds (has upper airway sounds) Cardiac/Chest: regular rate, rhythm Abdomen: normal bowel sounds, non-tender, soft, other (Moving bowels, Wafer inconsistently tight to abdominal wall - allowing leak) Pelvic Exam: deferred Rectal: deferred Back: Normal inspection Skin: diaphoresis Extremities: other (contractures of all extremities but no obvious sites of infection) Neuro/Psych: other (non-communicative) ICD10 Worksheet Patient Problems: Problems Problem Status Onset Dehydration Acute Hypokalemia Acute Hypoxia Acute Open abdominal wall wound Acute PEG tube malfunction Acute Pneumonia Acute UTI (urinary tract infection) Acute VRE (vancomycin-resistant Enterococci) Acute ~02/07/17
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
[2017-03-08] MEDS: fentaNYL 25 MCG PATCH TD SCH (17:29)
[2017-03-08] MEDS: 1/2 NS 1,000 ML IV SCH (17:30)
[2017-03-08] MEDS ORDERED: IOPAMIDOL (ISOVUE-300) 100 ML BTL ONE (17:45)
[2017-03-08] MEDS: TPN 1 EA BAG IV SCH (21:00)
[2017-03-09] MEDS: HYDROmorphONE/DILAUDID 1 MG/ML SYR IVP PRN ×3 (01:02→14:38)
[2017-03-09] MEDS: ACETAMINOPHEN 650 MG SUPP PR PRN (03:25)
[2017-03-09] MEDS: LORazepam 2 MG/ML INJ IVP PRN (03:59)
[2017-03-09 04:59] LABS: HEMATOCRIT 26.3 % (38.0-47.0); LIPEMIA HEMOLYSIS FLAG 80 (0-99); MEAN CELL HEMOGLOBIN 28.8 pg (27.9-34.1); MEAN CELL HEMOGLOBIN CONCENTR. 30.4 g/dL (32.4-36.7); MEAN CELL VOLUME 94.6 fL (81.5-99.8); PLATELET COUNT 491 10^3/uL (150-400); RED BLOOD CELL COUNT 2.78 10^6/uL (4.18-5.33); RED CELL DISTRIBUTION WIDTH 18.6 % (11.5-15.2)
[2017-03-09 05:12] LABS: ALANINE AMINOTRANSFERASE 91 IU/L (9-52); ALBUMIN 2.9 g/dL (3.5-5.0); ALKALINE PHOSPHATASE 224 IU/L (38-126); ANION GAP 13 mEq/L (8-16); ASPARTATE AMINOTRANSFERASE 37 IU/L (14-46); BILIRUBIN,TOTAL 0.5 mg/dL (0.1-1.4); CALCIUM 8.6 mg/dL (8.5-10.4); CARBON DIOXIDE 17 mEq/l (22-31); CHLORIDE 111 mEq/L (97-110); CREATININE 0.3 mg/dL (0.6-1.0); GLOMERULAR FILTRATION RATE > 60; GLUCOSE 112 mg/dL (70-100); POTASSIUM 4.7 mEq/L (3.5-5.2); SODIUM 141 mEq/L (134-144); TOTAL PROTEIN 6.3 g/dL (6.3-8.2)
[2017-03-09 05:19] LABS: PREALBUMIN 16.3 mg/dL (17.6-36.0)
[2017-03-09] MEDS: HALOPERIDOL LACT 5 MG/ML INJ IVP PRN ×2 (05:19→19:38)
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
[2017-03-09] MEDS: LORazepam 2 MG/ML INJ IVP SCH ×3 (09:47→22:39)
[2017-03-09] MEDS: PANTOPRAZOLE SODIUM 40 MG in NS 100 ML IV SCH ×2 (09:47→19:39)
[2017-03-09] MEDS: ENOXAPARIN 30 MG/0.3 ML SYR SC SCH (09:47)
[2017-03-09] MEDS: FLUTICASONE HFA 44 MCG MDI IH SCH ×2 (10:47→20:23)
--- NOTE | 2017-03-09 15:47 | SOAPPROG ---
SOAP Progress Note Assessment/Plan: 03/08/17 15:20 Assessment: 1) leakage at PEG site is secondary to the movement of the external wafer on the PEG tube. 2) Profuse diaphoresis and elevated platelets, now off antibiotics. 3) LFT elevation Plan: 1) secure wafer ( supplies requested ) 2) Suggest f/u Abdominal/pelvic CT to re-evaluate abdominal wall abscess for resolution/ metastatic spread of infection to liver Consider chest CT to complete w/u 03/09/17 15:41 \ 03/09/17 15:42 Assessment: 1) leakage at PEG site is secondary to the movement of the external wafer on the PEG tube. Wound inspected some superficial erosion due to wash of gastric fluid noted. 2) CT does show resolution of abdominal wall abscess. Plan: 1) secured wafer by tying am [place] tie around the wafer and placing a tie on the tube above and abutting the wafer ( top of wafer is at 3 CM). Added stoma adhesive to improve barrier function and made hole in ostomy bag much smaller to minimize motion. Will reassess. If fails will pass dobhoff through the PEG tube with IR 's help and try to advance into the jejunum. Subjective: non-communicative Objective: Vital Signs Temp Pulse Resp BP Pulse Ox 36.8 C 90 18 148/83 H 98 03/09/17 12:00 03/09/17 12:00 03/09/17 12:00 03/09/17 12:00 03/09/17 12:00 Microbiology 03/03/17 17:00 Blood Culture - Final Blood 03/03/17 16:30 Blood Culture - Final Blood Laboratory Results 03/09/17 04:16 03/09/17 04:16 03/08/17 03/09/17 03/10/17 05:59 05:59 05:59 Intake Total 150 2445 Output Total 1680 920 Balance -1530 1525 PT 13.4 SEC (12.0-15.0) 03/08/17 04:45 INR 1.03 (0.83-1.16) 03/08/17 04:45 - Time Spent With Patient Time Spent With Patient: 35 minutes manipulating PEG tube Physical Exam - Physical Exam Abdomen: other (There is a much smaller gastrostomy hole. There is skin breakdown secondary to leak of gastric acid onto the skin.) ICD10 Worksheet Patient Problems: Problems Problem Status Onset Dehydration Acute Hypokalemia Acute Hypoxia Acute Open abdominal wall wound Acute PEG tube malfunction Acute Pneumonia Acute UTI (urinary tract infection) Acute VRE (vancomycin-resistant Enterococci) Acute ~02/07/17
[2017-03-09] MEDS: 1/2 NS 1,000 ML IV SCH (19:38)
[2017-03-09 19:50] LABS: WBC, SYNOVIAL FLUID 1792 /mm3 (0-150)
[2017-03-09] MEDS: TPN 1 EA BAG IV SCH (21:08)
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
[2017-03-10 04:43] LABS: HEMATOCRIT 25.2 % (38.0-47.0); HEMOGLOBIN 7.6 g/dL (12.6-16.3); LIPEMIA HEMOLYSIS FLAG 80 (0-99); MEAN CELL HEMOGLOBIN 28.1 pg (27.9-34.1); MEAN CELL HEMOGLOBIN CONCENTR. 30.2 g/dL (32.4-36.7); MEAN CELL VOLUME 93.3 fL (81.5-99.8); PLATELET COUNT 492 10^3/uL (150-400); RED CELL DISTRIBUTION WIDTH 18.7 % (11.5-15.2)
[2017-03-10] MEDS: PANTOPRAZOLE SODIUM 40 MG in NS 100 ML IV SCH ×2 (07:55→22:00)
[2017-03-10] MEDS: LORazepam 2 MG/ML INJ IVP SCH ×3 (07:56→22:15)
[2017-03-10] MEDS: ENOXAPARIN 30 MG/0.3 ML SYR SC SCH (08:13)
[2017-03-10] MEDS: HYDROmorphONE/DILAUDID 1 MG/ML SYR IVP PRN ×4 (08:50→16:33)
--- NOTE | 2017-03-10 09:02 | HOSPPROG ---
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 CT did not show abscesses #Right knee pain: appreciate Ortho assistance with tap. Gram stain neg. Culture and crystals pending #Mild transaminitis: may be from TPN. CT reassuring #Fever: none since (03/03). Neg blood cxs (03/03) #PEG-related abdominal wall abscess: s/p days Zosyn/Micafungin (stopped 02/24) #Leaking feeding tube: imprspoke with Dr. Ewing. Will try to better secure the waffle. If not effective, may need G-J tube. #Urinary Pseudomonas colonization: no tx per ID #Right tib/fib fracture: cast removed for concern for infection source. Has boot. WBAT. FU with Dr. Rose' group in 3 months #Subacute sup/inf pubic ramus fracture: supportive care #Severe protein caloric malnutrition: BMI 17.6. Cont TPN, TFs #Hyperkalemia: resolved with TPN adjustment #Normocytic anemia: H/H trending down past week. No active bleeding, monitor closely #Accelerated HTN: improved. Cont clonidine, PRN IV antihypertensives #Diet: TPN #DVT ppx: Lovenox #Disp: warrants inpt admission with electrolyte abnormalities, malnutrition. Cont TPN, serial labs Subjective: no leaking for Gtube today. Knee effusion tapped yesterday Objective: Vital Signs Temp Pulse Resp BP Pulse Ox 37.3 C 99 30 H 151/90 H 98 03/10/17 08:00 03/10/17 08:00 03/10/17 08:00 03/10/17 08:00 03/10/17 08:00 Microbiology 03/09/17 18:37 Gram Stain - Final Knee - Aspirate Laboratory Results 03/10/17 04:30 03/09/17 04:16 03/09/17 03/10/17 03/11/17 05:59 05:59 05:59 Intake Total 2445 150 Output Total 920 1250 Balance 1525 -1100 PT 13.4 SEC (12.0-15.0) 03/08/17 04:45 INR 1.03 (0.83-1.16) 03/08/17 04:45 - Physical Exam Constitutional: cachectic Eyes: PERRL Ears, Nose, Mouth, Throat: moist mucous membranes Cardiovascular: regular rate and rhythym, no murmur, rub, or gallop Respiratory: no respiratory distress, no rales or rhonchi Gastrointestinal: normoactive bowel sounds, other (PEG tube without leakage this morning. No TTP ) Skin: warm, other (no cellulitis on left leg under boot. ) Musculoskeletal: other (LE/UE contractures. left knee effusion nearly gone after tap. No redness/warmth over joint) Neurologic: other (moaning) ICD10 Worksheet Patient Problems: Problems Problem Status Onset Dehydration Acute Hypokalemia Acute Hypoxia Acute Open abdominal wall wound Acute PEG tube malfunction Acute Pneumonia Acute UTI (urinary tract infection) Acute VRE (vancomycin-resistant Enterococci) Acute ~02/07/17
[2017-03-10] MEDS: FLUTICASONE HFA 44 MCG MDI IH SCH ×2 (09:40→21:49)
[2017-03-10 09:42] LABS: CRYSTALS, SYNOVIAL FLUID NONE SEEN (NONE SEEN)
[2017-03-10] MEDS: HALOPERIDOL LACT 5 MG/ML INJ IVP PRN ×2 (10:14→20:00)
--- NOTE | 2017-03-10 11:28 | SOAPPROG ---
SOAP Progress Note Assessment/Plan: 03/08/17 15:20 Assessment: 1) leakage at PEG site is secondary to the movement of the external wafer on the PEG tube. 2) Profuse diaphoresis and elevated platelets, now off antibiotics. 3) LFT elevation Plan: 1) secure wafer ( supplies requested ) 2) Suggest f/u Abdominal/pelvic CT to re-evaluate abdominal wall abscess for resolution/ metastatic spread of infection to liver Consider chest CT to complete w/u 03/09/17 15:41 Assessment: 1) leakage at PEG site is secondary to the movement of the external wafer on the PEG tube. Wound inspected some superficial erosion due to wash of gastric fluid noted. 2) CT does show resolution of abdominal wall abscess. Plan: 1) secured wafer by tying am O Silk tie around the wafer and placing a tie on the tube above and abutting the wafer ( top of wafer is at 3 CM). Added stoma adhesive to improve barrier function and made hole in ostomy bag much smaller to minimize motion. Will reassess. If fails will pass dobhoff through the PEG tube with IR 's help and try to advance into the jejunum. 03/10/17 11:19 Assessment: Leaking PEG tube/abdominal wall excoriation: After tube modification yesterday, there was no drainage. Early this AM. the PEG tube balloon volume was reduced to 9cc. No leak was noted. I have now removed the ostomy appliance and reinserted the PEG tube with the ballon now inflated to 10 cc. If no leak, will try to reduce the volume again. The skin is doing quite well now. Plan: recheck later today. Continue to use stoma paste! Subjective: non-communicative Objective: Vital Signs Temp Pulse Resp BP Pulse Ox 37.3 C 99 30 H 151/90 H 98 03/10/17 08:00 03/10/17 08:00 03/10/17 08:00 03/10/17 08:00 03/10/17 08:00 Microbiology 03/09/17 18:37 Gram Stain - Final Knee - Aspirate Laboratory Results 03/10/17 04:30 03/09/17 04:16 03/09/17 03/10/17 03/11/17 05:59 05:59 05:59 Intake Total 2445 150 Output Total 920 1250 500 Balance 1525 -1100 -500 PT 13.4 SEC (12.0-15.0) 03/08/17 04:45 INR 1.03 (0.83-1.16) 03/08/17 04:45 - Time Spent With Patient Time Spent With Patient: 15 - Pending Discharge Pending Discharge Within 24 Hours: No Pending Discharge Within 48 Hours: No Physical Exam - Physical Exam General Appearance: mild distress Abdomen: other (Michelle-PEG ostomy site skin has dramatically healed in last 24 hours!) ICD10 Worksheet Patient Problems: Problems Problem Status Onset Dehydration Acute Hypokalemia Acute Hypoxia Acute Open abdominal wall wound Acute PEG tube malfunction Acute Pneumonia Acute UTI (urinary tract infection) Acute VRE (vancomycin-resistant Enterococci) Acute ~02/07/17
[2017-03-10] MEDS: 1/2 NS 1,000 ML IV SCH (16:23)
--- NOTE | 2017-03-10 17:06 | SOAPPROG ---
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 Per nurse report pain control has been difficult Objective: Vital Signs Temp Pulse Resp BP Pulse Ox 37.2 C 99 20 115/66 94 03/10/17 12:00 03/10/17 12:00 03/10/17 12:00 03/10/17 12:00 03/10/17 12:00 Microbiology 03/09/17 18:37 Gram Stain - Final Knee - Aspirate Laboratory Results 03/10/17 04:30 03/09/17 04:16 03/09/17 03/10/17 03/11/17 05:59 05:59 05:59 Intake Total 2445 150 Output Total 920 1250 500 Balance 1525 -1100 -500 PT 13.4 SEC (12.0-15.0) 03/08/17 04:45 INR 1.03 (0.83-1.16) 03/08/17 04:45 Physical Exam - Physical Exam General Appearance: moderate distress, obtunded, thin Skin: normal color, other (well healing incision RLE without erythema, discharge , calor or ecchymosis) Extremities: other (Adductor contraction RLE), No pedal edema, No calf tenderness, No swelling, No Anthony's sign ICD10 Worksheet Patient Problems: Problems Problem Status Onset Dehydration Acute Hypokalemia Acute Hypoxia Acute Open abdominal wall wound Acute PEG tube malfunction Acute Pneumonia Acute UTI (urinary tract infection) Acute VRE (vancomycin-resistant Enterococci) Acute ~02/07/17
[2017-03-10 17:18] LABS: ALBUMIN 3.1 g/dL (3.5-5.0); BILIRUBIN,TOTAL 0.5 mg/dL (0.1-1.4); BILIRUBIN-CONJUGATED 0.5 mg/dL (0.0-0.5); TOTAL PROTEIN 6.2 g/dL (6.3-8.2)
[2017-03-10] MEDS: TPN 1 EA BAG IV SCH (22:13)
[2017-03-11] MEDS: ACETAMINOPHEN 650 MG SUPP PR PRN (03:02)
[2017-03-11 05:32] LABS: HEMATOCRIT 23.8 % (38.0-47.0); HEMOGLOBIN 7.3 g/dL (12.6-16.3); LIPEMIA HEMOLYSIS FLAG 80 (0-99); MEAN CELL HEMOGLOBIN 28.9 pg (27.9-34.1); MEAN CELL HEMOGLOBIN CONCENTR. 30.7 g/dL (32.4-36.7); MEAN CELL VOLUME 94.1 fL (81.5-99.8); PLATELET COUNT 490 10^3/uL (150-400); RED BLOOD CELL COUNT 2.53 10^6/uL (4.18-5.33)
[2017-03-11 05:50] LABS: ALANINE AMINOTRANSFERASE 79 IU/L (9-52); ALBUMIN 2.8 g/dL (3.5-5.0); ALKALINE PHOSPHATASE 230 IU/L (38-126); ANION GAP 12 mEq/L (8-16); ASPARTATE AMINOTRANSFERASE 39 IU/L (14-46); BILIRUBIN,TOTAL 0.5 mg/dL (0.1-1.4); CALCIUM 8.7 mg/dL (8.5-10.4); CARBON DIOXIDE 19 mEq/l (22-31); CHLORIDE 109 mEq/L (97-110); CREATININE 0.4 mg/dL (0.6-1.0); GLOMERULAR FILTRATION RATE > 60; GLUCOSE 80 mg/dL (70-100); POTASSIUM 4.5 mEq/L (3.5-5.2); SODIUM 140 mEq/L (134-144); TOTAL PROTEIN 6.2 g/dL (6.3-8.2)
[2017-03-11] MEDS: LORazepam 2 MG/ML INJ IVP SCH ×3 (08:36→23:00)
[2017-03-11] MEDS: PANTOPRAZOLE SODIUM 40 MG in NS 100 ML IV SCH ×2 (08:37→23:00)
[2017-03-11] MEDS: ENOXAPARIN 30 MG/0.3 ML SYR SC SCH (08:37)
--- NOTE | 2017-03-11 08:52 | HOSPPROG ---
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 CT did not show abscesses #Right knee pain: appreciate Ortho assistance with tap. No crystals, culture pending #Mild transaminitis: may be from TPN. CT reassuring #Fever: none since (03/03). Neg blood cxs (03/03) #PEG-related abdominal wall abscess: s/p days Zosyn/Micafungin (stopped 02/24) #Urinary Pseudomonas colonization: no tx per ID #Right tib/fib fracture: WBAT. FU with Dr. Rose' group in 3 months. RN to assist with ROM exercises for contractures #Subacute sup/inf pubic ramus fracture: supportive care #Severe protein caloric malnutrition: BMI 17.6. Cont TPN, TFs #Hyperkalemia: resolved with TPN adjustment #Normocytic anemia: H/H trending down past week. No active bleeding, monitor closely #Accelerated HTN: improved. Cont clonidine, PRN IV antihypertensives #Diet: TPN #DVT ppx: Lovenox #Disp: warrants inpt admission with electrolyte abnormalities, malnutrition. Cont TPN, serial labs Subjective: no acute events Objective: Vital Signs Temp Pulse Resp BP Pulse Ox 37.2 C 96 16 164/89 H 98 03/11/17 08:00 03/11/17 08:00 03/11/17 08:00 03/11/17 08:00 03/11/17 08:00 Microbiology 03/09/17 18:37 Gram Stain - Final Knee - Aspirate Laboratory Results 03/11/17 05:00 03/11/17 05:00 03/10/17 03/11/17 03/12/17 05:59 05:59 05:59 Intake Total 150 610 Output Total 1250 1350 Balance -1100 -740 PT 13.4 SEC (12.0-15.0) 03/08/17 04:45 INR 1.03 (0.83-1.16) 03/08/17 04:45 - Physical Exam Constitutional: cachectic, other (more comfortable today) Ears, Nose, Mouth, Throat: moist mucous membranes Cardiovascular: regular rate and rhythym Respiratory: no respiratory distress Gastrointestinal: other (g-tube with leakage. No pain with palpation) Skin: warm Musculoskeletal: other (left leg in brace. Knee swelling much improved) Neurologic: other (alert. less agitated today. ) ICD10 Worksheet Patient Problems: Problems Problem Status Onset Dehydration Acute Hypokalemia Acute Hypoxia Acute Open abdominal wall wound Acute PEG tube malfunction Acute Pneumonia Acute UTI (urinary tract infection) Acute VRE (vancomycin-resistant Enterococci) Acute ~02/07/17
[2017-03-11] MEDS: FLUTICASONE HFA 44 MCG MDI IH SCH ×2 (09:36→22:05)
[2017-03-11] MEDS: HYDROmorphONE/DILAUDID 1 MG/ML SYR IVP PRN ×3 (12:06→23:01)
[2017-03-11] MEDS: 1/2 NS 1,000 ML IV SCH (12:06)
[2017-03-11] MEDS: HALOPERIDOL LACT 5 MG/ML INJ IVP PRN (12:35)
--- NOTE | 2017-03-11 13:16 | SOAPPROG ---
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 Rose's group for right tib/fib fracture HKB on RLE, try to increase extension 03/11/17 13:12 Subjective: Patient is status post right knee aspiration done on 03/09/17. Waiting for final cultures. 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 Objective: Vital Signs Temp Pulse Resp BP Pulse Ox 37.5 C 104 H 18 170/96 H 97 03/11/17 11:59 03/11/17 11:59 03/11/17 11:59 03/11/17 11:59 03/11/17 11:59 Microbiology 03/09/17 18:37 Gram Stain - Final Knee - Aspirate Laboratory Results 03/11/17 05:00 03/11/17 05:00 03/10/17 03/11/17 03/12/17 05:59 05:59 05:59 Intake Total 150 610 Output Total 1250 1350 Balance -1100 -740 PT 13.4 SEC (12.0-15.0) 03/08/17 04:45 INR 1.03 (0.83-1.16) 03/08/17 04:45 Exam of the right lower extremity: HKB in place. Knee is without effusion or erythema. Eric wrap in place. No calf tenderness, no swelling. Negative homans sign. ICD10 Worksheet Patient Problems: Problems Problem Status Onset Dehydration Acute Hypokalemia Acute Hypoxia Acute Open abdominal wall wound Acute PEG tube malfunction Acute Pneumonia Acute UTI (urinary tract infection) Acute VRE (vancomycin-resistant Enterococci) Acute ~02/07/17
[2017-03-11] MEDS: fentaNYL 25 MCG PATCH TD SCH (15:31)
[2017-03-11] MEDS: TPN 1 EA BAG IV SCH (23:00)
[2017-03-12 06:58] LABS: HEMATOCRIT 24.9 % (38.0-47.0); HEMOGLOBIN 7.6 g/dL (12.6-16.3); MEAN CELL HEMOGLOBIN 28.7 pg (27.9-34.1); MEAN CELL HEMOGLOBIN CONCENTR. 30.5 g/dL (32.4-36.7); RED BLOOD CELL COUNT 2.65 10^6/uL (4.18-5.33); RED CELL DISTRIBUTION WIDTH 19.2 % (11.5-15.2)
[2017-03-12 08:07] LABS: ALANINE AMINOTRANSFERASE 77 IU/L (9-52); ALBUMIN 3.1 g/dL (3.5-5.0); ALKALINE PHOSPHATASE 240 IU/L (38-126); ANION GAP 12 mEq/L (8-16); ASPARTATE AMINOTRANSFERASE 36 IU/L (14-46); BILIRUBIN,TOTAL 0.5 mg/dL (0.1-1.4); CALCIUM 8.7 mg/dL (8.5-10.4); CARBON DIOXIDE 18 mEq/l (22-31); CHLORIDE 109 mEq/L (97-110); CREATININE 0.4 mg/dL (0.6-1.0); GLOMERULAR FILTRATION RATE > 60; GLUCOSE 84 mg/dL (70-100); MAGNESIUM 2.2 mg/dL (1.6-2.3); POTASSIUM 4.9 mEq/L (3.5-5.2); SODIUM 139 mEq/L (134-144); TOTAL PROTEIN 6.4 g/dL (6.3-8.2)
[2017-03-12] MEDS: ENOXAPARIN 30 MG/0.3 ML SYR SC SCH (09:04)
[2017-03-12] MEDS: PANTOPRAZOLE SODIUM 40 MG in NS 100 ML IV SCH ×2 (09:04→22:03)
[2017-03-12] MEDS: LORazepam 2 MG/ML INJ IVP SCH ×3 (09:04→22:50)
--- NOTE | 2017-03-12 09:06 | SOAPPROG ---
SOAP Progress Note Assessment/Plan: 03/08/17 15:20 Assessment: 1) leakage at PEG site is secondary to the movement of the external wafer on the PEG tube. 2) Profuse diaphoresis and elevated platelets, now off antibiotics. 3) LFT elevation Plan: 1) secure wafer ( supplies requested ) 2) Suggest f/u Abdominal/pelvic CT to re-evaluate abdominal wall abscess for resolution/ metastatic spread of infection to liver Consider chest CT to complete w/u 03/09/17 15:41 Assessment: 1) leakage at PEG site is secondary to the movement of the external wafer on the PEG tube. Wound inspected some superficial erosion due to wash of gastric fluid noted. 2) CT does show resolution of abdominal wall abscess. Plan: 1) secured wafer by tying am O Silk tie around the wafer and placing a tie on the tube above and abutting the wafer ( top of wafer is at 3 CM). Added stoma adhesive to improve barrier function and made hole in ostomy bag much smaller to minimize motion. Will reassess. If fails will pass dobhoff through the PEG tube with IR 's help and try to advance into the jejunum. 03/10/17 11:19 Assessment: Leaking PEG tube/abdominal wall excoriation: After tube modification yesterday, there was no drainage. Early this AM. the PEG tube balloon volume was reduced to 9cc. No leak was noted. I have now removed the ostomy appliance and reinserted the PEG tube with the ballon now inflated to 10 cc. If no leak, will try to reduce the volume again. The skin is doing quite well now. Plan: recheck later today. Continue to use stoma paste! 03/12/17 09:01 Assessment: PEG tube leaking. Skin looks great. It appears that the stoma paste was not used. I feel that the oversight of not using the paste contributed to the re leak issue. Plan: Just to be safe a new PEG tube was modified with 2-O suture ties to be slightly shorter (2.9 cm wafer to balloon tip). It has been inserted and tested. No leak so far. Subjective: non-communicative Objective: Vital Signs Temp Pulse Resp BP Pulse Ox 37.2 C 98 20 159/80 H 96 03/12/17 04:00 03/12/17 04:00 03/12/17 04:00 03/12/17 04:00 03/12/17 04:00 Microbiology 03/09/17 18:37 Gram Stain - Final Knee - Aspirate Laboratory Results 03/12/17 06:20 03/12/17 06:20 03/11/17 03/12/17 03/13/17 05:59 05:59 05:59 Intake Total 610 480 Output Total 1350 1400 Balance -740 -920 PT 13.4 SEC (12.0-15.0) 03/08/17 04:45 INR 1.03 (0.83-1.16) 03/08/17 04:45 - Time Spent With Patient Time Spent With Patient: 15 - Pending Discharge Pending Discharge Within 24 Hours: No Pending Discharge Within 48 Hours: No Physical Exam - Physical Exam Abdomen: other (complete skin healing up to PEG ostomy site.) ICD10 Worksheet Patient Problems: Problems Problem Status Onset Dehydration Acute Hypokalemia Acute Hypoxia Acute Open abdominal wall wound Acute PEG tube malfunction Acute Pneumonia Acute UTI (urinary tract infection) Acute VRE (vancomycin-resistant Enterococci) Acute ~02/07/17
[2017-03-12] MEDS: FLUTICASONE HFA 44 MCG MDI IH SCH ×2 (09:33→21:45)
[2017-03-12] MEDS: ACETAMINOPHEN 650 MG SUPP PR PRN (12:27)
[2017-03-12] MEDS: 1/2 NS 1,000 ML IV SCH (12:28)
[2017-03-12] MEDS: HYDROmorphONE/DILAUDID 1 MG/ML SYR IVP PRN (13:48)
[2017-03-12] MEDS: HALOPERIDOL LACT 5 MG/ML INJ IVP PRN (15:10)
--- NOTE | 2017-03-12 15:54 | HOSPPROG ---
Hospitalist Progress Note Assessment/Plan: #Chronic encephalopathy: from TBI (stable) #Pain: improved with addition of Fentanyl 25mcg. CT did not show abscesses. Tube continues to leak. Surgery note reviewed and appreciated #Right knee pain: appreciate Ortho assistance with tap. No crystals, culture NGTD #Mild transaminitis: may be from TPN. CT reassuring #Fever: none since (03/03). Neg blood cxs (03/03) #PEG-related abdominal wall abscess: s/p days Zosyn/Micafungin (stopped 02/24) #Urinary Pseudomonas colonization: no tx per ID #Right tib/fib fracture: WBAT. FU with Dr. Rose' group in 3 months. RN to assist with ROM exercises for contractures #Subacute sup/inf pubic ramus fracture: supportive care #Severe protein caloric malnutrition: BMI 17.6. Cont TPN, TFs #Hyperkalemia: resolved with TPN adjustment #Normocytic anemia: H/H trending down past week. No active bleeding, monitor closely #Accelerated HTN: improved. Cont clonidine, PRN IV antihypertensives #Diet: TPN #DVT ppx: Lovenox #Disp: warrants inpt admission with electrolyte abnormalities, malnutrition. Cont TPN, serial labs Subjective: pt is unresponsive Objective: Vital Signs Temp Pulse Resp BP Pulse Ox 37.5 C 100 48 H 163/92 H 96 03/12/17 13:50 03/12/17 12:00 03/12/17 12:00 03/12/17 12:00 03/12/17 12:00 Microbiology 03/09/17 18:37 Gram Stain - Final Knee - Aspirate Laboratory Results 03/12/17 06:20 03/12/17 06:20 03/11/17 03/12/17 03/13/17 05:59 05:59 05:59 Intake Total 610 480 Output Total 1350 1400 Balance -740 -920 PT 13.4 SEC (12.0-15.0) 03/08/17 04:45 INR 1.03 (0.83-1.16) 03/08/17 04:45 - Physical Exam Constitutional: chronically ill appearing, uncomfortable Eyes: PERRL, anicteric sclera, EOMI Cardiovascular: regular rate and rhythym, no murmur, rub, or gallop Respiratory: no respiratory distress, no rales or rhonchi, clear to auscultation ICD10 Worksheet Patient Problems: Problems Problem Status Onset VRE (vancomycin-resistant Enterococci) Acute ~02/07/17 Pneumonia Acute Dehydration Acute Hypoxia Acute PEG tube malfunction Acute Hypokalemia Acute Open abdominal wall wound Acute UTI (urinary tract infection) Acute
[2017-03-12] MEDS: TPN 1 EA BAG IV SCH (22:04)
[2017-03-13] MEDS: HYDROmorphONE/DILAUDID 1 MG/ML SYR IVP PRN ×3 (04:47→15:20)
[2017-03-13] MEDS: FLUTICASONE HFA 44 MCG MDI IH SCH ×2 (09:24→22:02)
[2017-03-13] MEDS: PANTOPRAZOLE SODIUM 40 MG in NS 100 ML IV SCH ×2 (09:35→22:11)
[2017-03-13] MEDS: ENOXAPARIN 30 MG/0.3 ML SYR SC SCH (09:36)
[2017-03-13] MEDS: LORazepam 2 MG/ML INJ IVP SCH ×3 (09:36→22:11)
--- NOTE | 2017-03-13 14:24 | SOAPPROG ---
SOAP Progress Note Assessment/Plan: Assessment: Adductor Contracture. Recent right knee aspiration to r/o septic knee joint. 72 hour synovial fluid cultures are negative. Plan:Continue pain management PT/OT Hinged Knee brace on at 90 degrees flexion S: Pt. in a HKB for adductor contracture O:No calf swelling or evident TTP Distally, pt. has normal cap. refill, skin is warm and dry. 03/13/17 14:30 Objective: Vital Signs Temp Pulse Resp BP Pulse Ox 37.2 C 100 18 152/108 H 97 03/13/17 12:00 03/13/17 12:00 03/13/17 12:00 03/13/17 12:00 03/13/17 12:00 Microbiology 03/09/17 18:37 Gram Stain - Final Knee - Aspirate Laboratory Results 03/12/17 06:20 03/12/17 06:20 03/12/17 03/13/17 03/14/17 05:59 05:59 05:59 Intake Total 480 1035 2724 Output Total 1400 750 550 Balance -581 409 5552 PT 13.4 SEC (12.0-15.0) 03/08/17 04:45 INR 1.03 (0.83-1.16) 03/08/17 04:45 ICD10 Worksheet Patient Problems: Problems Problem Status Onset Dehydration Acute Hypokalemia Acute Hypoxia Acute Open abdominal wall wound Acute PEG tube malfunction Acute Pneumonia Acute UTI (urinary tract infection) Acute VRE (vancomycin-resistant Enterococci) Acute ~02/07/17
--- NOTE | 2017-03-13 14:42 | HOSPPROG ---
Hospitalist Progress Note Assessment/Plan: #Chronic encephalopathy: from TBI (stable) #Fever (recurrent) -send blood cultures and PCT #Pain: improved with addition of Fentanyl 25mcg. CT did not show abscesses. Tube leak improved . Surgery note reviewed and appreciated #Right knee pain: appreciate Ortho assistance with tap. No crystals, culture NGTD #Mild transaminitis: may be from TPN. CT reassuring #PEG-related abdominal wall abscess: s/p days Zosyn/Micafungin (stopped 02/24) #Urinary Pseudomonas colonization: no tx per ID #Right tib/fib fracture: WBAT. FU with Dr. Rose' group in 3 months. RN to assist with ROM exercises for contractures #Subacute sup/inf pubic ramus fracture: supportive care #Severe protein caloric malnutrition: BMI 17.6. Cont TPN, TFs #Hyperkalemia: resolved with TPN adjustment #Normocytic anemia: H/H trending down past week. No active bleeding, monitor closely #Accelerated HTN: improved. Cont clonidine, PRN IV antihypertensives #Diet: TPN #DVT ppx: Lovenox #Disp: warrants inpt admission with electrolyte abnormalities, malnutrition. Cont TPN, serial labs Subjective: nonverbal Objective: Vital Signs Temp Pulse Resp BP Pulse Ox 37.2 C 100 18 152/108 H 97 03/13/17 12:00 03/13/17 12:00 03/13/17 12:00 03/13/17 12:00 03/13/17 12:00 Microbiology 03/09/17 18:37 Gram Stain - Final Knee - Aspirate Laboratory Results 03/12/17 06:20 03/12/17 06:20 03/12/17 03/13/17 03/14/17 05:59 05:59 05:59 Intake Total 480 1035 2724 Output Total 1400 750 550 Balance -480 198 5467 PT 13.4 SEC (12.0-15.0) 03/08/17 04:45 INR 1.03 (0.83-1.16) 03/08/17 04:45 - Physical Exam Constitutional: chronically ill appearing Cardiovascular: regular rate and rhythym, no murmur, rub, or gallop Respiratory: no respiratory distress, no rales or rhonchi, clear to auscultation Gastrointestinal: normoactive bowel sounds, soft, non-tender abdomen, no palpable masses, No guarding, No rebound ICD10 Worksheet Patient Problems: Problems Problem Status Onset VRE (vancomycin-resistant Enterococci) Acute ~02/07/17 Pneumonia Acute Dehydration Acute Hypoxia Acute PEG tube malfunction Acute Hypokalemia Acute Open abdominal wall wound Acute UTI (urinary tract infection) Acute
[2017-03-13] MEDS: 1/2 NS 1,000 ML IV SCH (15:20)
[2017-03-13] MEDS: HALOPERIDOL LACT 5 MG/ML INJ IVP PRN (20:08)
[2017-03-13] MEDS: ONDANSETRON 4 MG/2 ML VIAL IVP PRN (22:24)
[2017-03-13] MEDS: TPN 1 EA BAG IV SCH (22:41)
[2017-03-14] MEDS: ENOXAPARIN 30 MG/0.3 ML SYR SC SCH (08:19)
[2017-03-14] MEDS: PANTOPRAZOLE SODIUM 40 MG in NS 100 ML IV SCH ×2 (08:20→21:05)
[2017-03-14] MEDS: FLUTICASONE HFA 44 MCG MDI IH SCH ×2 (09:11→21:29)
[2017-03-14] MEDS: LORazepam 2 MG/ML INJ IVP SCH ×3 (09:34→21:05)
[2017-03-14] MEDS: HYDROmorphONE/DILAUDID 1 MG/ML SYR IVP PRN ×3 (10:29→21:06)
--- NOTE | 2017-03-14 10:54 | HOSPPROG ---
Hospitalist Progress Note Assessment/Plan: #Chronic encephalopathy: from TBI (stable) #Fever (recurrent) -send blood cultures 03/12, PCY mildly elevated -cxr -knee aspirate growing proteus (I discussed this finding with Dr. Goodson and will proceed with repeat sampling to confirm) #Pain: improved with addition of Fentanyl 25mcg. CT did not show abscesses. Tube leak improved . Surgery note reviewed and appreciated #Right knee pain: appreciate Ortho assistance with tap. No crystals, culture NGTD #Mild transaminitis: may be from TPN. CT reassuring #PEG-related abdominal wall abscess: s/p days Zosyn/Micafungin (stopped 02/24) #Urinary Pseudomonas colonization: no tx per ID #Right tib/fib fracture: WBAT. FU with Dr. Rose' group in 3 months. RN to assist with ROM exercises for contractures #Subacute sup/inf pubic ramus fracture: supportive care #Severe protein caloric malnutrition: BMI 17.6. Cont TPN, TFs #Hyperkalemia: resolved with TPN adjustment #Normocytic anemia: H/H trending down past week. No active bleeding, monitor closely #Accelerated HTN: improved. Cont clonidine, PRN IV antihypertensives #Diet: cont tf tpn stopped 03/12 #DVT ppx: Lovenox #Disp: warrants inpt admission with electrolyte abnormalities, malnutrition. Subjective: no new complaints Objective: Vital Signs Temp Pulse Resp BP Pulse Ox 38.1 C 91 28 H 142/83 H 95 03/14/17 08:00 03/14/17 08:00 03/14/17 08:00 03/14/17 08:00 03/14/17 08:00 Microbiology 03/09/17 18:37 Gram Stain - Final Knee - Aspirate Laboratory Results 03/12/17 06:20 03/12/17 06:20 03/13/17 03/14/17 03/15/17 05:59 05:59 05:59 Intake Total 1035 4589 587 Output Total 750 1810 Balance 285 2779 587 PT 13.4 SEC (12.0-15.0) 03/08/17 04:45 INR 1.03 (0.83-1.16) 03/08/17 04:45 - Physical Exam Constitutional: chronically ill appearing Cardiovascular: regular rate and rhythym, no murmur, rub, or gallop Respiratory: no respiratory distress, no rales or rhonchi, clear to auscultation Gastrointestinal: normoactive bowel sounds, soft, non-tender abdomen, no palpable masses, other (peg inplace without leak) ICD10 Worksheet Patient Problems: Problems Problem Status Onset VRE (vancomycin-resistant Enterococci) Acute ~02/07/17 Pneumonia Acute Dehydration Acute Hypoxia Acute PEG tube malfunction Acute Hypokalemia Acute Open abdominal wall wound Acute UTI (urinary tract infection) Acute
--- NOTE | 2017-03-14 14:00 | PCMIDPN ---
Assessment/Plan: Assessment/Plan: * Recurrent fever: Patient now with recurrent fever over last 48 hours. Unclear etiology. Had right knee aspirated due to persistent pain and synovial fluid from 03/09/2017 showed 1792 white blood cells with cultures growing Proteus on 03/13/2017 in rare amounts. Knee does not show any inflammatory changes on exam. Unclear if this truly represents septic arthritis versus contaminated culture. Favor repeat aspiration of knee prior to targeted therapy to see if worsening cell count or repeat growth of Proteus and therefore will hold off on ceftriaxone in interim. 1/2 sets of blood cultures now with GPCs in clusters with identification by PCR pending. Contaminant versus true pathogen will be further define by additional culture information; will repeat blood cultures prior to initiation of vancomycin. Does have modest increase in procalcitonin more suggestive of infectious etiology. Other consideration remains indolent infection of right lower extremity hardware. Dependent on above evaluation, may need to further image right lower extremity although some limitation will be present related to hardware. * Abdominal wall cellulitis/phlegmon associated with G-tube leakage: Completed therapy with no active signs or symptoms of ongoing infection. * Complicated UTI due to Pseudomonas aeruginosa: Completed course of therapy. Time spent, greater than 35 minutes, of which greater than half was spent in coordination of care related to recurrent fever, culture findings, and plan of care. 03/14/17 13:57 03/14/17 13:58 03/14/17 14:06 03/14/17 14:06 Subjective: Patient previously seen by our service for abdominal wall cellulitis/phlegmon associated with G-tube site. Now with recurrent fever over last 48 hours. In interim since last visit by our service, had increased right knee pain and underwent aspiration of right knee. Synovial fluid showed 1792 white blood cells. Culture of the synovial fluid now has shown rare growth of Proteus. Ceftriaxone was started empirically yesterday. Today, 1/2 sets of blood cultures now showing GPCs in clusters with BCID pending. Unable to obtain any meaningful history other than review of systems with nursing staff today. Objective: Vital Signs Temp Pulse Resp BP Pulse Ox 37.6 C 103 H 18 142/71 H 94 03/14/17 12:00 03/14/17 12:00 03/14/17 12:00 03/14/17 12:00 03/14/17 12:00 Microbiology 03/09/17 18:37 Gram Stain - Final Knee - Aspirate Laboratory Results 03/12/17 06:20 03/12/17 06:20 03/13/17 03/14/17 03/15/17 05:59 05:59 05:59 Intake Total 1035 4589 587 Output Total 750 1810 Balance 285 2779 587 C-Reactive Protein 124.3 mg/L (<10.0) H 03/03/17 05:00 Vancomycin ordered to be started today Ceftriaxone # 1 Laboratory Tests 03/09/17 18:37 Synovial WBC 1792 H Synovial RBC 960301 H Synovial Neutrophils 69 H Synovial Lymphocytes 9 Synov Monos/Macrophage 22 Synovial Crystals NONE SEEN CT scan abdomen/pelvis 03/08/2017 without evidence of abscess Chest x-ray 03/14/2017 without significant infiltrate - Physical Exam General Appearance: non-toxic, other (Moans intermittently but meaningful communication) EENT: No scleral icterus Respiratory: lungs clear, No respiratory distress Cardiac/Chest: tachycardia Extremities: other (Right knee without erythema, warmth, tenderness or effusion ; ORIF incisions healing well without erythema or drainage) Abdomen: non-tender, other (No abdominal wall erythema), No distended Skin: No embolic lesions ICD10 Worksheet Patient Problems: Problems Problem Status Onset Dehydration Acute Hypokalemia Acute Hypoxia Acute Open abdominal wall wound Acute PEG tube malfunction Acute Pneumonia Acute UTI (urinary tract infection) Acute VRE (vancomycin-resistant Enterococci) Acute ~02/07/17
[2017-03-14] MEDS: VANCOMYCIN 500 MG in D5W 100 ML IV SCH (15:01)
[2017-03-14] MEDS: fentaNYL 25 MCG PATCH TD SCH (16:40)
[2017-03-14] MEDS: ONDANSETRON 4 MG/2 ML VIAL IVP PRN (17:29)
--- NOTE | 2017-03-14 20:20 | SOAPPROG ---
SOAP Progress Note Assessment/Plan: Assessment: Adductor Contracture. Recent right knee aspiration to r/o septic knee joint. Most recent culture had a scant amount of Proteus from the aspirate. Pt. will have a new knee aspiration under flouro to further rule out infection. Plan:Continue pain management PT/OT Hinged Knee brace on at 90 degrees flexion-order placed to work on knee extension and if able to tolerate more extension, the hinged knee brace may gradually be moved to a position of greater extension. Skin checks every 3 days-order placed Right AFO brace-order placed. Multi-podus boot which PT wanted to try for the right ankle will not fit with her hinged knee brace, so a more streamlined AFO brace will need to be used instead. S: Pt. in a HKB for adductor contracture. ROS unable to be obtained, pt. moans in pain when moved O:No calf swelling or evident TTP. Distally, pt. has normal cap. refill, skin is warm and dry. 03/13/17 14:30 03/14/17 20:16 Objective: Vital Signs Temp Pulse Resp BP Pulse Ox 37.1 C 91 20 127/70 H 97 03/14/17 15:21 03/14/17 15:21 03/14/17 15:21 03/14/17 15:21 03/14/17 15:21 Microbiology 03/13/17 14:02 Blood Panel (PCR) - Final Blood Staph Coagulase Negative 03/09/17 18:37 Gram Stain - Final Knee - Aspirate Laboratory Results 03/12/17 06:20 03/12/17 06:20 03/13/17 03/14/17 03/15/17 05:59 05:59 05:59 Intake Total 1035 4589 837 Output Total 750 1810 350 Balance 285 2779 487 PT 13.4 SEC (12.0-15.0) 03/08/17 04:45 INR 1.03 (0.83-1.16) 03/08/17 04:45 ICD10 Worksheet Patient Problems: Problems Problem Status Onset Dehydration Acute Hypokalemia Acute Hypoxia Acute Open abdominal wall wound Acute PEG tube malfunction Acute Pneumonia Acute UTI (urinary tract infection) Acute VRE (vancomycin-resistant Enterococci) Acute ~02/07/17
[2017-03-14] MEDS: HALOPERIDOL LACT 5 MG/ML INJ IVP PRN (23:38)
[2017-03-15] MEDS: VANCOMYCIN 500 MG in D5W 100 ML IV SCH ×2 (01:25→14:06)
[2017-03-15] MEDS: HYDROmorphONE/DILAUDID 1 MG/ML SYR IVP PRN ×7 (01:35→22:57)
[2017-03-15 04:43] LABS: % IMMATURE GRANULYOCYTES 2.3 % (0.0-1.1); ABSOLUTE IMMATURE GRANULOCYTES 0.19 10^3/uL (0.00-0.10); ADD DIFF? NO; ADD MORPH? NO; ADD SCAN? NO; ATYPICAL LYMPHOCYTE FLAG 30 (0-99); FRAGMENT RBC FLAG 10 (0-99); HEMATOCRIT 23.1 % (38.0-47.0); HEMOGLOBIN 7.1 g/dL (12.6-16.3); LEFT SHIFT FLG 30 (0-99); LIPEMIA HEMOLYSIS FLAG 80 (0-99); MEAN CELL HEMOGLOBIN CONCENTR. 30.7 g/dL (32.4-36.7); MEAN CELL VOLUME 94.3 fL (81.5-99.8); MEAN PLATELET VOLUME 10.3 fL (8.7-11.7); PLATELET CLUMPS FLAG 10 (0-99); PLATELET COUNT 429 10^3/uL (150-400); RED BLOOD CELL COUNT 2.45 10^6/uL (4.18-5.33); RED CELL DISTRIBUTION WIDTH 19.9 % (11.5-15.2)
[2017-03-15] MEDS: 1/2 NS 1,000 ML IV SCH (04:58)
--- NOTE | 2017-03-15 07:46 | SOAPPROG ---
SOAP Progress Note Assessment/Plan: Assessment: Recurrent fever: Patient now with recurrent fever over last 48 hours. Unclear etiology. Had right knee aspirated due to persistent pain and synovial fluid from 03/09/2017 showed 1792 white blood cells with cultures growing Proteus on in rare amounts. Knee does not show any inflammatory changes on exam. Unclear if this truly represents septic arthritis versus contaminated culture. Favor repeat aspiration of knee prior to targeted therapy to see if worsening cell count or repeat growth of Proteus and therefore will hold off on ceftriaxone in interim. No evidence of infection around right lower extremity hardware. 1/2 sets of blood cultures now with GPCs in clusters with identification by PCR pending. Contaminant versus true pathogen will be further define by additional culture information; will repeat blood cultures prior to initiation of vancomycin. * Abdominal wall cellulitis/phlegmon associated with G-tube leakage: Completed therapy with no active signs or symptoms of ongoing infection. * Complicated UTI due to Pseudomonas aeruginosa: Completed course of therapy. Plan: Await new knee aspirate results to be performed by radiology under fluoro. 03/15/17 07:41 Subjective: No change. Objective: Vital Signs Temp Pulse Resp BP Pulse Ox 36.8 C 90 15 106/68 94 03/15/17 04:00 03/15/17 04:00 03/15/17 04:00 03/15/17 04:00 03/15/17 04:00 Microbiology 03/13/17 14:02 Blood Panel (PCR) - Final Blood Staph Coagulase Negative 03/09/17 18:37 Gram Stain - Final Knee - Aspirate Laboratory Results 03/15/17 04:00 03/12/17 06:20 03/14/17 03/15/17 03/16/17 05:59 05:59 05:59 Intake Total 4589 837 Output Total 1810 750 Balance 2779 87 PT 13.4 SEC (12.0-15.0) 03/08/17 04:45 INR 1.03 (0.83-1.16) 03/08/17 04:45 CSMT of right lower extremity is normal ICD10 Worksheet Patient Problems: Problems Problem Status Onset Dehydration Acute Hypokalemia Acute Hypoxia Acute Open abdominal wall wound Acute PEG tube malfunction Acute Pneumonia Acute UTI (urinary tract infection) Acute VRE (vancomycin-resistant Enterococci) Acute ~02/07/17
[2017-03-15] MEDS: LORazepam 2 MG/ML INJ IVP SCH ×3 (08:13→22:57)
[2017-03-15] MEDS: PANTOPRAZOLE SODIUM 40 MG in NS 100 ML IV SCH ×2 (08:13→22:56)
[2017-03-15] MEDS: ENOXAPARIN 30 MG/0.3 ML SYR SC SCH (08:14)
[2017-03-15] MEDS: FLUTICASONE HFA 44 MCG MDI IH SCH ×2 (09:33→21:33)
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
--- NOTE | 2017-03-15 13:47 | HOSPPROG ---
Hospitalist Progress Note Assessment/Plan: #Chronic encephalopathy: from TBI (stable) #Fever (recurrent) with staph epi bacteremia -ID Aware -cont Vanco -cxr -knee aspirate growing proteus which seems odd. Will proceed with knee u/s prior to repeating tap #PEG-related abdominal wall abscess: s/p days Zosyn/Micafungin (stopped 02/24) -tube continues to leak -surgery aware and planning on upper gi study #Pain: improved with addition of Fentanyl 25mcg. CT did not show abscesses. Tube leak improved . Surgery note reviewed and appreciated #Right knee pain: appreciate Ortho assistance with tap. No crystals, culture NGTD #Mild transaminitis: may be from TPN. CT reassuring #Urinary Pseudomonas colonization: no tx per ID #Right tib/fib fracture: WBAT. FU with Dr. Rose' group in 3 months. RN to assist with ROM exercises for contractures #Subacute sup/inf pubic ramus fracture: supportive care #Severe protein caloric malnutrition: BMI 17.6. Cont TPN, TFs #Hyperkalemia: resolved with TPN adjustment #Normocytic anemia: H/H trending down past week. No active bleeding, monitor closely #Accelerated HTN: improved. Cont clonidine, PRN IV antihypertensives #Diet: cont tf tpn stopped 03/12 #DVT ppx: Lovenox #Disp: warrants inpt admission with electrolyte abnormalities, malnutrition. Subjective: not tolerting feeds per rn Objective: Vital Signs Temp Pulse Resp BP Pulse Ox 36.6 C 85 16 122/70 H 95 03/15/17 11:48 03/15/17 11:48 03/15/17 11:48 03/15/17 11:48 03/15/17 11:48 Microbiology 03/13/17 14:02 Blood Panel (PCR) - Final Blood Staph Coagulase Negative 03/09/17 18:37 Gram Stain - Final Knee - Aspirate Laboratory Results 03/15/17 04:00 03/12/17 06:20 03/14/17 03/15/17 03/16/17 05:59 05:59 05:59 Intake Total 4589 837 Output Total 1810 750 Balance 2779 87 PT 13.4 SEC (12.0-15.0) 03/08/17 04:45 INR 1.03 (0.83-1.16) 03/08/17 04:45 - Physical Exam Constitutional: chronically ill appearing Cardiovascular: regular rate and rhythym, no murmur, rub, or gallop Respiratory: no respiratory distress, no rales or rhonchi, clear to auscultation Gastrointestinal: normoactive bowel sounds, soft, non-tender abdomen, no palpable masses Musculoskeletal: other (right knee not hot without obvious effusion) ICD10 Worksheet Patient Problems: Problems Problem Status Onset VRE (vancomycin-resistant Enterococci) Acute ~02/07/17 Pneumonia Acute Dehydration Acute Hypoxia Acute PEG tube malfunction Acute Hypokalemia Acute Open abdominal wall wound Acute UTI (urinary tract infection) Acute
--- NOTE | 2017-03-15 16:27 | PCMIDPN ---
Assessment/Plan: Assessment: Fevers-absent since yesterday morning. Workup in progress. 1/2 sets of blood cultures from 03/13 with coagulase-negative Staphylococcus. Likely contaminant. Surprisingly Proteus cultured from right knee aspiration with low white blood cell presence in fluid. Repeat ultrasound today at bed does not reveal any significant right knee synovial fluid. Consideration that this may be a contaminant from the skin surface. Patient on vancomycin empirically. Continue have concern for G-tube site. Discussed with surgery today. Plan: 1. Will discontinue vancomycin as there is no clear need for Gram-positive coverage. 2. Pseudomonal UTI-completed treatment. 3. Continue to clinically monitor the right knee. No outward signs of inflammation. Subjective: Patient resting in the hospital bed. No significant clinical change. Remains chronically neurologically injured. Objective: Vancomycin # 1 Vital Signs Temp Pulse Resp BP Pulse Ox 36.5 C 89 16 150/112 H 97 03/15/17 16:00 03/15/17 16:00 03/15/17 16:00 03/15/17 16:00 03/15/17 16:00 Microbiology 03/09/17 18:37 Gram Stain - Final Knee - Aspirate 03/13/17 14:02 Blood Panel (PCR) - Final Blood Staph Coagulase Negative Laboratory Results 03/15/17 04:00 03/12/17 06:20 03/14/17 03/15/17 03/16/17 05:59 05:59 05:59 Intake Total 4589 837 Output Total 1810 750 Balance 2779 87 C-Reactive Protein 124.3 mg/L (<10.0) H 03/03/17 05:00 - Physical Exam General Appearance: WD/WN, alert, non-toxic, other (Minimally communicative) Respiratory: lungs clear, normal breath sounds, No respiratory distress Cardiac/Chest: regular rate, rhythm, No tachycardia Extremities: non-tender, No normal inspection (Contracted) Skin: normal color, warm/dry, No rash Neuro/Psych: alert ICD10 Worksheet Patient Problems: Problems Problem Status Onset Dehydration Acute Hypokalemia Acute Hypoxia Acute Open abdominal wall wound Acute PEG tube malfunction Acute Pneumonia Acute UTI (urinary tract infection) Acute VRE (vancomycin-resistant Enterococci) Acute ~02/07/17
--- NOTE | 2017-03-15 21:32 | SOAPPROG ---
SOAP Progress Note Assessment/Plan: Assessment: NO REAL CHANGE TODAY Plan:CONTINUE WOUND CARE 02/27/17 13:16 02/28/17 13:15 WOUND STABLE/ AFEBRILE/ CXR SHOWS BASILAR ATELECTASIS/ SLOWLY IMPROVING 03/02/17 10:13 AFEBRILE/WOUND SLOWLY IMPROVING/SEEMED MORE COMFORTABLE TODAY 03/15/17 21:30 Wound is dramatically improved but she still continues to have leakage at some times/peristomal skin is in good shape now His unclear why she would have persistent leaks around her G-tube unless it is not being pulled up snugly/ Will get a upper GI evaluation to be sure her Polaris is not obstructed to help of rule out other etiologies for leakage around her G-tube Objective: Vital Signs Temp Pulse Resp BP Pulse Ox 36.9 C 90 18 144/88 H 93 03/15/17 20:00 03/15/17 20:00 03/15/17 20:00 03/15/17 20:00 03/15/17 20:00 Microbiology 03/09/17 18:37 Gram Stain - Final Knee - Aspirate 03/13/17 14:02 Blood Panel (PCR) - Final Blood Staph Coagulase Negative Laboratory Results 03/15/17 04:00 03/12/17 06:20 03/14/17 03/15/17 03/16/17 05:59 05:59 05:59 Intake Total 4589 837 Output Total 1810 750 450 Balance 2779 87 -450 PT 13.4 SEC (12.0-15.0) 03/08/17 04:45 INR 1.03 (0.83-1.16) 03/08/17 04:45 ICD10 Worksheet Patient Problems: Problems Problem Status Onset Dehydration Acute Hypokalemia Acute Hypoxia Acute Open abdominal wall wound Acute PEG tube malfunction Acute Pneumonia Acute UTI (urinary tract infection) Acute VRE (vancomycin-resistant Enterococci) Acute ~02/07/17
[2017-03-16] MEDS: HYDROmorphONE/DILAUDID 1 MG/ML SYR IVP PRN ×7 (02:42→22:15)
[2017-03-16] MEDS: LORazepam 2 MG/ML INJ IVP PRN (04:38)
[2017-03-16 05:15] LABS: ALANINE AMINOTRANSFERASE 43 IU/L (9-52); ALBUMIN 2.7 g/dL (3.5-5.0); ALKALINE PHOSPHATASE 174 IU/L (38-126); ANION GAP 10 mEq/L (8-16); ASPARTATE AMINOTRANSFERASE 25 IU/L (14-46); BILIRUBIN,TOTAL 0.4 mg/dL (0.1-1.4); CALCIUM 9.2 mg/dL (8.5-10.4); CARBON DIOXIDE 21 mEq/l (22-31); CHLORIDE 107 mEq/L (97-110); CREATININE 0.4 mg/dL (0.6-1.0); GLOMERULAR FILTRATION RATE > 60; GLUCOSE 96 mg/dL (70-100); POTASSIUM 3.9 mEq/L (3.5-5.2); SODIUM 138 mEq/L (134-144); TOTAL PROTEIN 5.8 g/dL (6.3-8.2); TRIGLYCERIDE 200 mg/dL (35-135)
[2017-03-16] MEDS: D5W 1/2 NS W/ 20 KCl/L 1,000 ML IV SCH ×2 (06:42→16:51)
[2017-03-16] MEDS: ENOXAPARIN 30 MG/0.3 ML SYR SC SCH (09:45)
[2017-03-16] MEDS: LORazepam 2 MG/ML INJ IVP SCH ×3 (09:45→22:16)
[2017-03-16] MEDS: PANTOPRAZOLE SODIUM 40 MG in NS 100 ML IV SCH ×2 (09:45→21:33)
[2017-03-16] MEDS: FLUTICASONE HFA 44 MCG MDI IH SCH ×2 (10:44→22:32)
--- NOTE | 2017-03-16 12:30 | PCMIDPN ---
Assessment/Plan: Assessment/Plan: 1. Fevers - intermittent. no obvious source -blood cx with one set showing CoNS that is likely a contaminant. f/u blood cx prior to vanco with ngtd -knee aspirate with small amt of wbc and cx showing proteus. no residual jt effusion noted on exam or via USG, and knee not warm. not on directive therapy - Off antibiotics at this time. - Continue to monitor off antibiotics for now. 2. Intraabdominal abscess associated with PEG tube: - 1.8x 1.4x 1.2cm collection with phlegmon around peg tube. -REcent Ct abd (03/08/17): showing only small fluid collection 2.8cm x 1cm between stomach and rectus abdominus (down from 6 x 2.5 from January) -previous cultures with C. albicans -Last dose of antibiotics was on 02/24/17 -wbc noted - For further eval as to why still leaking around g-tube. Meds off antibiotics. vanco d/c'd yesterday Subjective: Afebrile. moaning today. unable to elicit specific issues from patient. Objective: Vital Signs Temp Pulse Resp BP Pulse Ox 36.7 C 87 20 171/110 H 96 03/16/17 09:46 03/16/17 09:46 03/16/17 09:46 03/16/17 09:46 03/16/17 09:46 Microbiology 03/13/17 14:02 Blood Culture - Final Blood Staphylococcus Epidermidis Blood Panel (PCR) - Final Staph Coagulase Negative 03/09/17 18:37 Gram Stain - Final Knee - Aspirate Laboratory Results 03/15/17 04:00 03/16/17 04:15 03/15/17 03/16/17 03/17/17 05:59 05:59 05:59 Intake Total 837 Output Total 750 1200 Balance 87 -1200 C-Reactive Protein 124.3 mg/L (<10.0) H 03/03/17 05:00 - Physical Exam General Appearance: other (eyes open, moans) Respiratory: lungs clear (anteriorly but limited exam) Cardiac/Chest: regular rate, rhythm Extremities: other (RIght LE in fay bandage. no obvious swelling of right or left knee. picc line in RUE. no swelling.), No swelling Abdomen: normal bowel sounds, non-tender, soft, other (leaking around peg tube) , No distended Skin: No erythema ICD10 Worksheet Patient Problems: Problems Problem Status Onset Dehydration Acute Hypokalemia Acute Hypoxia Acute Open abdominal wall wound Acute PEG tube malfunction Acute Pneumonia Acute UTI (urinary tract infection) Acute VRE (vancomycin-resistant Enterococci) Acute ~02/07/17
--- NOTE | 2017-03-16 14:09 | HOSPPROG ---
Hospitalist Progress Note Assessment/Plan: #Chronic encephalopathy: from TBI (stable) #Fever (resolved) with staph epi in 1/ cultures thought to be contaminate -ID consult appreciated -monitor off of abx #PEG-related abdominal wall abscess: s/p days Zosyn/Micafungin (stopped 02/24) -tube continues to leak -IR plans to place J tube 03/17 #Pain- pt has been moaning the past 24 hours. she is unable to localize pain. -Consider repeat abd ct if fever returns or moaning and distress continue #Right knee pain with culture growing proteus ?contaminate -us done 03/15 was reviewed and negative for effusion -defer repeat tap for now #Severe protein caloric malnutrition: BMI 17.6. - Cont TPN until feeding tube is functioning -TF to be restated when possible #Mild transaminitis: may be from TPN. CT reassuring #Urinary Pseudomonas colonization: no tx per ID #Right tib/fib fracture: WBAT. FU with Dr. Rose' group in 3 months. RN to assist with ROM exercises for contractures #Subacute sup/inf pubic ramus fracture: supportive care #Hyperkalemia: resolved with TPN adjustment #Normocytic anemia: H/H trending down past week. No active bleeding, monitor closely #Accelerated HTN: improved. Cont clonidine, PRN IV antihypertensives #Diet: cont tf tpn stopped 03/12 #DVT ppx: Lovenox #Disp: warrants inpt admission with electrolyte abnormalities, malnutrition. Subjective: pt is moaning and unable to localize pain. not following commands Objective: Vital Signs Temp Pulse Resp BP Pulse Ox 36.6 C 109 H 24 H 170/101 H 95 03/16/17 12:00 03/16/17 12:00 03/16/17 12:00 03/16/17 12:00 03/16/17 12:00 Microbiology 03/09/17 18:37 Gram Stain - Final Knee - Aspirate 03/13/17 14:02 Blood Culture - Final Blood Staphylococcus Epidermidis Blood Panel (PCR) - Final Staph Coagulase Negative Laboratory Results 03/15/17 04:00 03/16/17 04:15 03/15/17 03/16/17 03/17/17 05:59 05:59 05:59 Intake Total 837 Output Total 750 1200 Balance 87 -1200 PT 13.4 SEC (12.0-15.0) 03/08/17 04:45 INR 1.03 (0.83-1.16) 03/08/17 04:45 - Physical Exam Constitutional: chronically ill appearing, uncomfortable Cardiovascular: regular rate and rhythym, no murmur, rub, or gallop Respiratory: no respiratory distress, no rales or rhonchi, clear to auscultation Gastrointestinal: normoactive bowel sounds, soft, non-tender abdomen, no palpable masses, distension, other (feeding tube in place), No guarding, No rebound ICD10 Worksheet Patient Problems: Problems Problem Status Onset VRE (vancomycin-resistant Enterococci) Acute ~02/07/17 Pneumonia Acute Dehydration Acute Hypoxia Acute PEG tube malfunction Acute Hypokalemia Acute Open abdominal wall wound Acute UTI (urinary tract infection) Acute
[2017-03-16] MEDS: TPN 1 EA BAG IV SCH (21:32)
[2017-03-16] MEDS: ENALAPRILAT DIHYDRATE 1.25 MG/ML VIAL IVP PRN (22:15)
[2017-03-16] MEDS: HALOPERIDOL LACT 5 MG/ML INJ IVP PRN (23:15)
[2017-03-17] MEDS: HYDROmorphONE/DILAUDID 1 MG/ML SYR IVP PRN ×5 (01:38→23:03)
[2017-03-17] MEDS: HALOPERIDOL LACT 5 MG/ML INJ IVP PRN (01:39)
[2017-03-17] MEDS: hydrALAZINE 20 MG/ML VIAL IVP PRN (01:39)
[2017-03-17] MEDS: ENALAPRILAT DIHYDRATE 1.25 MG/ML VIAL IVP PRN ×3 (05:44→23:03)
[2017-03-17 06:11] LABS: ANION GAP 10 mEq/L (8-16); CALCIUM 9.2 mg/dL (8.5-10.4); CARBON DIOXIDE 21 mEq/l (22-31); CHLORIDE 109 mEq/L (97-110); CREATININE 0.4 mg/dL (0.6-1.0); GLOMERULAR FILTRATION RATE > 60; GLUCOSE 106 mg/dL (70-100); MAGNESIUM 1.8 mg/dL (1.6-2.3); POTASSIUM 3.7 mEq/L (3.5-5.2); SODIUM 140 mEq/L (134-144)
[2017-03-17] MEDS: D5W 1/2 NS W/ 20 KCl/L 1,000 ML IV SCH ×2 (06:44→16:36)
[2017-03-17] MEDS ORDERED: HYDROmorphONE/DILAUDID 1 MG/ML SYR IVP ONE (09:11)
--- NOTE | 2017-03-17 09:13 | HOSPPROG ---
Hospitalist Progress Note Assessment/Plan: 56 yo F w abdominal wall abscess 2/2 g tube; prolonged and complex hospitalization Chronic encephalopathy: from TBI (stable) Fever (resolved) with staph epi in 1/2 cultures thought to be contaminate -ID consult appreciated -monitor off of abx PEG-related abdominal wall abscess: s/p days Zosyn/Micafungin (stopped 02/24) -tube continues to leak -IR plans to place J tube 03/17 hold LMWH today Pain- pt has been moaning the past 24 hours. she is unable to localize pain. -Consider repeat abd ct if fever returns or moaning and distress continue Right knee pain with culture growing proteus ?contaminate -us done 03/15 was reviewed and negative for effusion -defer repeat tap for now Severe protein caloric malnutrition: BMI 17.6. - Cont TPN until feeding tube is functioning -TF to be restated when possible Mild transaminitis: may be from TPN. CT reassuring Urinary Pseudomonas colonization: no tx per ID Right tib/fib fracture: WBAT. FU with Dr. Rose' group in 3 months. RN to assist with ROM exercises for contractures Subacute sup/inf pubic ramus fracture: supportive care proph: lmwh code: DNR Subjective: groaning all morning. apparently in pain. case d/w ID Objective: Vital Signs Temp Pulse Resp BP Pulse Ox 36.7 C 98 20 191/101 H 97 03/17/17 08:00 03/17/17 08:00 03/17/17 08:00 03/17/17 08:00 03/17/17 08:00 Microbiology 03/09/17 18:37 Gram Stain - Final Knee - Aspirate 03/13/17 14:02 Blood Culture - Final Blood Staphylococcus Epidermidis Blood Panel (PCR) - Final Staph Coagulase Negative Laboratory Results 03/15/17 04:00 03/17/17 05:35 03/16/17 03/17/17 03/18/17 05:59 05:59 05:59 Intake Total 2529 Output Total 1200 2150 Balance -1200 379 PT 13.4 SEC (12.0-15.0) 03/08/17 04:45 INR 1.03 (0.83-1.16) 03/08/17 04:45 - Physical Exam Constitutional: cachectic, other (groaning. eyes open. non verba) Eyes: PERRL, anicteric sclera Ears, Nose, Mouth, Throat: moist mucous membranes, hearing normal Cardiovascular: regular rate and rhythym, no murmur, rub, or gallop, No tachycardia Respiratory: no respiratory distress, no rales or rhonchi, clear to auscultation Gastrointestinal: other (bilious leakage around G tube. soft) Genitourinary: no bladder fullness, brody in urethra Skin: warm, normal color, other (per nursing, no sacral skin breakdown) Musculoskeletal: full muscle strength, no muscle tenderness Neurologic: AAOx3 Psychiatric: interacting appropriately Lymph, Heme, Immunologic: no cervical LAD ICD10 Worksheet Patient Problems: Problems Problem Status Onset Dehydration Acute Hypokalemia Acute Hypoxia Acute Open abdominal wall wound Acute PEG tube malfunction Acute Pneumonia Acute UTI (urinary tract infection) Acute VRE (vancomycin-resistant Enterococci) Acute ~02/07/17
[2017-03-17] MEDS: FLUTICASONE HFA 44 MCG MDI IH SCH ×2 (09:38→21:28)
[2017-03-17] MEDS: PANTOPRAZOLE SODIUM 40 MG in NS 100 ML IV SCH ×2 (11:20→20:35)
[2017-03-17] MEDS: LORazepam 2 MG/ML INJ IVP SCH ×3 (11:21→21:06)
[2017-03-17] MEDS: ENOXAPARIN 30 MG/0.3 ML SYR SC SCH (11:22)
[2017-03-17] MEDS ORDERED: DIAZEPAM 10 MG/2 ML SYR IVP ONE (13:10)
[2017-03-17] MEDS: fentaNYL 25 MCG PATCH TD SCH (16:28)
[2017-03-17] MEDS: TPN 1 EA BAG IV SCH (20:35)
[2017-03-17] MEDS ORDERED: DIAZEPAM 5 MG TAB PO PRN (21:51)
[2017-03-18] MEDS: DIAZEPAM 10 MG/2 ML SYR IVP PRN (04:46)
[2017-03-18] MEDS: HYDROmorphONE/DILAUDID 1 MG/ML SYR IVP PRN ×4 (04:47→21:00)
[2017-03-18 05:14] LABS: % IMMATURE GRANULYOCYTES 2.4 % (0.0-1.1); ABSOLUTE NRBC COUNT 0.02 10^3/uL (0-0.01); ADD DIFF? NO; ADD MORPH? NO; ADD SCAN? NO; ATYPICAL LYMPHOCYTE FLAG 40 (0-99); FRAGMENT RBC FLAG 0 (0-99); HEMATOCRIT 28.5 % (38.0-47.0); HEMOGLOBIN 8.8 g/dL (12.6-16.3); LEFT SHIFT FLG 20 (0-99); LIPEMIA HEMOLYSIS FLAG 80 (0-99); MEAN CELL HEMOGLOBIN 28.9 pg (27.9-34.1); MEAN CELL HEMOGLOBIN CONCENTR. 30.9 g/dL (32.4-36.7); MEAN CELL VOLUME 93.8 fL (81.5-99.8); MEAN PLATELET VOLUME 9.6 fL (8.7-11.7); NRBC-AUTO% 0.2 % (0.0-0.2); PLATELET CLUMPS FLAG 0 (0-99); PLATELET COUNT 558 10^3/uL (150-400); RED BLOOD CELL COUNT 3.04 10^6/uL (4.18-5.33)
[2017-03-18] MEDS: FLUTICASONE HFA 44 MCG MDI IH SCH ×2 (08:38→23:04)
[2017-03-18] MEDS: ENOXAPARIN 30 MG/0.3 ML SYR SC SCH (09:53)
[2017-03-18] MEDS: D5W 1/2 NS W/ 20 KCl/L 1,000 ML IV SCH (09:53)
[2017-03-18] MEDS: ACETAMINOPHEN 650 MG SUPP PR PRN (09:53)
[2017-03-18] MEDS: PANTOPRAZOLE SODIUM 40 MG in NS 100 ML IV SCH ×2 (09:54→22:15)
[2017-03-18] MEDS: LORazepam 2 MG/ML INJ IVP SCH ×3 (09:54→23:18)
--- NOTE | 2017-03-18 10:13 | WOCRNPDOC ---
WOCRN Advanced Assessment Note - Skin Integrity Problem, Advanced Assess Right Heel Dressing Type: Open to Air Exudate Amount: None Michelle Wound Tissue: Calloused (and peeling foot) Site Measurement - Head-to-Toe Length X Width X Depth (cm): 2.1x2.5x0 Pressure Injury Stage: Stage 1 Pressure Injury Present on Admit: No Skin Integrity Problem Comment: Offloading boot placed. Marla Sutton in room for care. Please keep heel in offloading boot. Please reconsult prn. Wound care will sign off.
[2017-03-18] MEDS: ENALAPRILAT DIHYDRATE 1.25 MG/ML VIAL IVP PRN (12:54)
--- NOTE | 2017-03-18 12:58 | SOAPPROG ---
SOAP Progress Note Assessment/Plan: Assessment: 56-year-old female with abdominal wall abscess related to feeding tube, prolonged complex hospitalization, chronic encephalopathy from previous traumatic brain injury. Physical exam awake, unresponsive to verbal stimuli Abdomen soft, no visible signs of tenderness upon palpation all 4 quadrants. Plan: Awaiting upper GI study and possible placement of J-tube with Interventional Radiology. Discussed with nursing. 03/18/17 12:57 Objective: Vital Signs Temp Pulse Resp BP Pulse Ox 36.9 C 93 16 161/84 H 97 03/18/17 12:00 03/18/17 12:00 03/18/17 12:00 03/18/17 12:00 03/18/17 12:00 Microbiology 03/09/17 18:37 Gram Stain - Final Knee - Aspirate Laboratory Results 03/18/17 04:59 03/17/17 05:35 03/17/17 03/18/17 03/19/17 05:59 05:59 05:59 Intake Total 2529 1450 Output Total 2150 2500 Balance 379 -1050 PT 13.4 SEC (12.0-15.0) 03/08/17 04:45 INR 1.03 (0.83-1.16) 03/08/17 04:45 ICD10 Worksheet Patient Problems: Problems Problem Status Onset Dehydration Acute Hypokalemia Acute Hypoxia Acute Open abdominal wall wound Acute PEG tube malfunction Acute Pneumonia Acute UTI (urinary tract infection) Acute VRE (vancomycin-resistant Enterococci) Acute ~02/07/17
[2017-03-18] MEDS ORDERED: D10W 125 ML IV ONE (13:00)
--- NOTE | 2017-03-18 14:01 | HOSPPROG ---
Hospitalist Progress Note Assessment/Plan: 56 yo F w abdominal wall abscess 2/2 g tube; prolonged and complex hospitalization Chronic encephalopathy: from TBI (stable) Fever (resolved) with staph epi in 1/2 cultures thought to be contaminate -ID consult appreciated -monitor off of abx PEG-related abdominal wall abscess: s/p days Zosyn/Micafungin (stopped 02/24) skin around tube looks very good check small bowel follow through to eval for distal obstruction ultimately needs J tube IR waiting on special part. unclear when it will arrive. I arce ve discussed this w dr sen daily htn: secondary to pain or muscle spasm. continue prn meds sbp goal <190 Pain- pt has been moaning the past 24 hours. she is unable to localize pain. per PT, very rigid no po access makes giving muscle relaxants challenging on prn valium, will continue that. concern for obtunding her w scheduled valium muscle spasms: lytes OK Right knee pain with culture growing proteus ?contaminate -us done 03/15 was reviewed and negative for effusion -defer repeat tap for now Severe protein caloric malnutrition: BMI 17.6. - Cont TPN until feeding tube is functioning -TF to be restated when possible Mild transaminitis: may be from TPN. CT reassuring Urinary Pseudomonas colonization: no tx per ID Right tib/fib fracture: WBAT. FU with Dr. Rose' group in 3 months. RN to assist with ROM exercises for contractures Subacute sup/inf pubic ramus fracture: supportive care proph: lmwh code: DNR Subjective: case discussed w corey esquivel, surgery PA. hypoglycemic Objective: Vital Signs Temp Pulse Resp BP Pulse Ox 36.9 C 93 16 161/84 H 97 03/18/17 12:00 03/18/17 12:00 03/18/17 12:00 03/18/17 12:00 03/18/17 12:00 Microbiology 03/09/17 18:37 Gram Stain - Final Knee - Aspirate Laboratory Results 03/18/17 04:59 03/17/17 05:35 03/17/17 03/18/17 03/19/17 05:59 05:59 05:59 Intake Total 2529 1450 Output Total 2150 2500 Balance 379 -1050 PT 13.4 SEC (12.0-15.0) 03/08/17 04:45 INR 1.03 (0.83-1.16) 03/08/17 04:45 - Physical Exam Constitutional: no apparent distress, appears nourished Eyes: PERRL, anicteric sclera Ears, Nose, Mouth, Throat: moist mucous membranes, hearing normal Cardiovascular: regular rate and rhythym, no murmur, rub, or gallop, No tachycardia Respiratory: no respiratory distress, no rales or rhonchi Gastrointestinal: other (soft. skin around PEG c/d/i w no erythema or fluctuance. ) Genitourinary: brody in urethra Skin: warm, normal color Musculoskeletal: full muscle strength, no muscle tenderness Neurologic: AAOx3, sensation intact bilaterally Psychiatric: interacting appropriately, not anxious Lymph, Heme, Immunologic: no cervical LAD ICD10 Worksheet Patient Problems: Problems Problem Status Onset Dehydration Acute Hypokalemia Acute Hypoxia Acute Open abdominal wall wound Acute PEG tube malfunction Acute Pneumonia Acute UTI (urinary tract infection) Acute VRE (vancomycin-resistant Enterococci) Acute ~02/07/17
--- NOTE | 2017-03-18 19:54 | HOSPPROG ---
Hospitalist Progress Note Assessment/Plan: Called to bedside by RN caryn tib/fib incision now dehisced to 2inches. Gen: NAD, not moaning HEENT: COLBY CV: RRR Musk: right medial danielson surgical incision dehisced 2 inches with exposed hardware. No significant purulence A&P: 1. Dehisced wound: increased size today. Dr. Barclay had spoken with ID and Gen surgery. I did discuss with Dr. Mar as well and he is available if help needed. Currently, hemodynamically stable. Culture and abx if fevers Objective: Vital Signs Temp Pulse Resp BP Pulse Ox 36.8 C 81 16 120/64 100 03/18/17 18:48 03/18/17 18:48 03/18/17 18:48 03/18/17 18:48 03/18/17 18:48 Microbiology 03/09/17 18:37 Gram Stain - Final Knee - Aspirate Laboratory Results 03/18/17 04:59 03/17/17 05:35 03/17/17 03/18/17 03/19/17 05:59 05:59 05:59 Intake Total 2529 1450 650 Output Total 2150 2500 900 Balance 379 -1050 -250 PT 13.4 SEC (12.0-15.0) 03/08/17 04:45 INR 1.03 (0.83-1.16) 03/08/17 04:45 ICD10 Worksheet Patient Problems: Problems Problem Status Onset Dehydration Acute Hypokalemia Acute Hypoxia Acute Open abdominal wall wound Acute PEG tube malfunction Acute Pneumonia Acute UTI (urinary tract infection) Acute VRE (vancomycin-resistant Enterococci) Acute ~02/07/17
[2017-03-18] MEDS: TPN 1 EA BAG IV SCH (22:15)
[2017-03-19] MEDS: HYDROmorphONE/DILAUDID 1 MG/ML SYR IVP PRN ×7 (04:00→22:43)
[2017-03-19 04:49] LABS: ALANINE AMINOTRANSFERASE 43 IU/L (9-52); ALBUMIN 3.2 g/dL (3.5-5.0); ALKALINE PHOSPHATASE 170 IU/L (38-126); ANION GAP 12 mEq/L (8-16); ASPARTATE AMINOTRANSFERASE 29 IU/L (14-46); BILIRUBIN,TOTAL 0.4 mg/dL (0.1-1.4); CALCIUM 8.8 mg/dL (8.5-10.4); CARBON DIOXIDE 18 mEq/l (22-31); CHLORIDE 115 mEq/L (97-110); CREATININE 0.3 mg/dL (0.6-1.0); GLOMERULAR FILTRATION RATE > 60; GLUCOSE 65 mg/dL (70-100); MAGNESIUM 2.3 mg/dL (1.6-2.3); SODIUM 145 mEq/L (134-144); TOTAL PROTEIN 6.5 g/dL (6.3-8.2)
[2017-03-19] MEDS: DIAZEPAM 10 MG/2 ML SYR IVP PRN (05:55)
[2017-03-19] MEDS: ENOXAPARIN 30 MG/0.3 ML SYR SC SCH (07:38)
[2017-03-19] MEDS: PANTOPRAZOLE SODIUM 40 MG in NS 100 ML IV SCH ×2 (07:40→20:22)
[2017-03-19] MEDS: LORazepam 2 MG/ML INJ IVP SCH ×3 (09:29→21:25)
[2017-03-19] MEDS ORDERED: SODIUM HYPOCHLORITE (DAKINS 1/4 STR) 120 ML BTL TP PRN (09:30)
[2017-03-19] MEDS: FLUTICASONE HFA 44 MCG MDI IH SCH ×3 (09:48→20:39)
--- NOTE | 2017-03-19 10:11 | WOCRNPDOC ---
[facility] Advanced Assessment Note - Skin Integrity Problem, Advanced Assess Left Abdomen Drain Site Dressing Type: Dressing Sponge, Tegaderm Film Dressing Description: Intact, Saturated (gastric contents) Exudate Amount: Excessive Exudate Color: Yellow, Green Exudate Characteristic(s): Clear, Thick Integumentary Issue Intervention: Dressing Changed, Barrier Cream Applied (zinc spray) Wound Bed Color: Red Wound Bed Constitution: Smooth Tissue Site Measurement - Head-to-Toe Length X Width X Depth (cm): 2x2x0.1 Skin Integrity Problem Comment: Abdomen around PEG again begining to denude from gastric contents. Please pouch area again. Now presents with partial thickness denudement the size of the bumper. Yana SUTTON in room for care. Right Lower Leg Surgical Wound/Incision Dressing Type: Kerlix, Xeroform Dressing Description: Clean/Dry, Intact Closure Description: Not Approximated Exudate Amount: None Integumentary Issue Intervention: Dressing Reinforced Michelle Wound Tissue: Erythema Wound Bed Constitution: Smooth Tissue, Tunneling (at 12 oclock 1.5 cm), Adhered Slough Wound Edges: Not Attached Site Measurement - Head-to-Toe Length X Width X Depth (cm): 5.2x1.1x1 Skin Integrity Problem Comment: Dehisced surgical wound on left posterior leg. This wound is erythematic along entire incision line mixed with scattered slough and eschar extending superior and inferior to current dehiscence. Applied a moist to dry 1/4 strength Dakins dressings BID to reduce bacterial load. There is no granulation in wound. Of note on the anterior lower leg incision site, the tail of a suture is now visible through a section of eschar that is slowly peeling off. The suture is too deeply embedded to remove at this time. Nina Sutton in room for care. Wound care will round again Thursday 03/22 or Friday 03/23. Report given to Yana SUTTON. Right Posterior Thigh Pressure Injury Dressing Type: Open to Air Site Measurement - Head-to-Toe Length X Width X Depth (cm): 0.3x5.1x0 Pressure Injury Stage: Stage 1, Surveillance System Monitor Related Pressure Injury Pressure Injury Present on Admit: No Skin Integrity Problem Comment: From brace, which has now been removed.
[2017-03-19] MEDS ORDERED: NS 1,000 ML IV ONE (10:28)
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
[2017-03-19] MEDS: D5W 1/2 NS W/ 20 KCl/L 1,000 ML IV SCH (12:49)
[2017-03-19] MEDS ORDERED: VANCOMYCIN HCL/NORMAL SALINE 250 ML IV SCH (13:00)
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
[2017-03-19] MEDS: HALOPERIDOL LACT 5 MG/ML INJ IVP PRN (14:16)
[2017-03-19] MEDS: VANCOMYCIN 500 MG in D5W 100 ML IV SCH (14:17)
--- NOTE | 2017-03-19 15:48 | SOAPPROG ---
ELEN Progress Note Assessment/Plan: Assessment: NO REAL CHANGE TODAY Plan:CONTINUE WOUND CARE 02/27/17 13:16 02/28/17 13:15 WOUND STABLE/ AFEBRILE/ CXR SHOWS BASILAR ATELECTASIS/ SLOWLY IMPROVING 03/02/17 10:13 AFEBRILE/WOUND SLOWLY IMPROVING/SEEMED MORE COMFORTABLE TODAY 03/15/17 21:30 Wound is dramatically improved but she still continues to have leakage at some times/peristomal skin is in good shape now His unclear why she would have persistent leaks around her G-tube unless it is not being pulled up snugly/ Will get a upper GI evaluation to be sure her Polaris is not obstructed to help of rule out other etiologies for leakage around her G-tube 03/19/17 15:45 DIFFICULT SITUATION PERSISTS/PATIENT NOW WITH EXPOSED HARDWARE IN HER RIGHT LEG AFTER TIBIAL ORIF/STILL APPARENTLY LEAKING FROM HER G-TUBE BUT HAS NOT HAD A GASTRIC STUDY YET MAY NEED BK AMPUTATION TO RESOLVE THE ISSUE IN HER RIGHT LEG VERSUS SIMPLE HARDWARE REMOVAL/PROBABLY WILL NEED TO BE CHANGED TO A J-TUBE IF WE CANNOT CONTROL THE LEAKAGE FROM HER G-TUBE/STILL SHOULD HAVE A GASTRIC EMPTYING TEST TO RULE OUT OBSTRUCTION OF THE G TUBE Objective: Vital Signs Temp Pulse Resp BP Pulse Ox 37.6 C 97 14 140/87 H 100 03/19/17 12:00 03/19/17 12:00 03/19/17 12:00 03/19/17 12:00 03/19/17 12:00 Microbiology 03/13/17 13:45 Blood Culture - Final Blood Laboratory Results 03/18/17 04:59 03/19/17 04:27 03/18/17 03/19/17 03/20/17 05:59 05:59 05:59 Intake Total 1450 650 Output Total 2500 1750 Balance -1050 -1100 PT 13.4 SEC (12.0-15.0) 03/08/17 04:45 INR 1.03 (0.83-1.16) 03/08/17 04:45 ICD10 Worksheet Patient Problems: Problems Problem Status Onset Dehydration Acute Hypokalemia Acute Hypoxia Acute Open abdominal wall wound Acute PEG tube malfunction Acute Pneumonia Acute UTI (urinary tract infection) Acute VRE (vancomycin-resistant Enterococci) Acute ~02/07/17
--- NOTE | 2017-03-19 17:34 | PCMIDPN ---
Assessment/Plan: Assessment: Exposed right ankle hardware x2 days. Covered with vancomycin due to likelihood or possibility of infection in the area. I suspect this is most likely due to poor nutritional status and wound healing failure of the area. However the exposed hardware produces a de facto infected artificial surface. Given that the patient is profoundly neurologically compromised and has no reasonable chance for recovery an elective BKA may be appropriate. Plan: 1. Continue empiric vancomycin for now. 2. Arrive at decision on aggressiveness of care after family conference tomorrow. 03/19/17 17:31 Subjective: Patient remains with the same appearance as she has had every day. She is moaning and groaning in her bed. No intelligible verbalizations. Does not reliably attend nor follow commands. Objective: Vancomycin # 1 Vital Signs Temp Pulse Resp BP Pulse Ox 37.6 C 88 16 138/89 H 99 03/19/17 16:00 03/19/17 16:00 03/19/17 16:00 03/19/17 16:00 03/19/17 16:00 Microbiology 03/14/17 15:00 Blood Culture - Final Blood 03/14/17 14:25 Blood Culture - Final Blood 03/13/17 13:45 Blood Culture - Final Blood Laboratory Results 03/18/17 04:59 03/19/17 04:27 03/18/17 03/19/17 03/20/17 05:59 05:59 05:59 Intake Total 1450 650 Output Total 2500 1750 Balance -1050 -1100 C-Reactive Protein 124.3 mg/L (<10.0) H 03/03/17 05:00 - Physical Exam General Appearance: WD/WN, alert, apparent distress, cachetic, non-toxic Respiratory: lungs clear, normal breath sounds, No respiratory distress Cardiac/Chest: regular rate, rhythm, No tachycardia Extremities: non-tender, No normal inspection Skin: normal color, warm/dry, No rash ICD10 Worksheet Patient Problems: Problems Problem Status Onset Dehydration Acute Hypokalemia Acute Hypoxia Acute Open abdominal wall wound Acute PEG tube malfunction Acute Pneumonia Acute UTI (urinary tract infection) Acute VRE (vancomycin-resistant Enterococci) Acute ~02/07/17
[2017-03-19] MEDS: TPN 1 EA BAG IV SCH (21:25)
[2017-03-20] MEDS: HYDROmorphONE/DILAUDID 1 MG/ML SYR IVP PRN ×10 (04:13→23:06)
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
[2017-03-20] MEDS: PANTOPRAZOLE SODIUM 40 MG in NS 100 ML IV SCH (08:10)
[2017-03-20] MEDS: ENOXAPARIN 30 MG/0.3 ML SYR SC SCH (08:11)
--- NOTE | 2017-03-20 09:07 | PCMIDPN ---
Assessment/Plan: 1. Right lower extremity with exposed hardware: Vancomycin started yesterday. In my medical opinion, this patient has no meaningful quality of life moving forward. I feel like we are causing unnecessary distress presently. I recommend hospice, but family conference to transpire today for further decision making. Please page me if he would like me to be present during this conference. 03/20/17 09:04 Subjective: Attempted to view patient has exposed hardware. She screamed in pain, moaning and groaning. I decided to abort. No physical exam performed so as to not cause her pain and distress. Objective: Vancomycin 500 mg IV daily day 2 T-max 37.3degrees Vital Signs Temp Pulse Resp BP Pulse Ox 37.3 C 94 16 147/86 H 99 03/20/17 04:00 03/20/17 04:00 03/20/17 04:00 03/20/17 04:00 03/20/17 04:00 Microbiology 03/14/17 15:00 Blood Culture - Final Blood 03/14/17 14:25 Blood Culture - Final Blood Laboratory Results 03/18/17 04:59 03/19/17 04:27 03/19/17 03/20/17 03/21/17 05:59 05:59 05:59 Intake Total 650 1592 Output Total 1750 1100 Balance -1100 492 C-Reactive Protein 124.3 mg/L (<10.0) H 03/03/17 05:00 ICD10 Worksheet Patient Problems: Problems Problem Status Onset Dehydration Acute Hypokalemia Acute Hypoxia Acute Open abdominal wall wound Acute PEG tube malfunction Acute Pneumonia Acute UTI (urinary tract infection) Acute VRE (vancomycin-resistant Enterococci) Acute ~02/07/17
[2017-03-20] MEDS: LORazepam 2 MG/ML INJ IVP SCH ×3 (09:25→22:59)
[2017-03-20] MEDS: FLUTICASONE HFA 44 MCG MDI IH SCH ×2 (10:00→22:13)
--- NOTE | 2017-03-20 13:07 | HOSPPROG ---
Hospitalist Progress Note Assessment/Plan: 56 yo F w abdominal wall abscess 2/2 g tube; prolonged and complex hospitalization plan of care: long conversation w family re: dismal neurologic prognosis, multiple active medical issues, poor nutritional status and ongoing, minute to minute suffering. patient has a had a fair amount of tragedy and suffering in her life. mother understands situation, unwilling to make decision today until she spoke w more family members. repeat meeting today dehisched wound with exposed hardware: I spoke w dr rose, surgeon who placed hardware. he does not have privileges at [facility]. seen by Dr Mar here (appreciated) he recommends BKA poor nutritional status makes any surgical intervention high risk for non healing G tube: continues to leak. 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 unclear when it will arrive. I arce ve discussed this w dr sen daily htn: secondary to pain or muscle spasm. continue prn meds sbp goal <190 Pain- pt has been moaning the past 24 hours. she is unable to localize pain. per PT, very rigid no po access makes giving muscle relaxants challenging on prn valium, will continue that. concern for obtunding her w scheduled valium muscle spasms: lytes OK Right knee pain with culture growing proteus ?contaminate -us done 03/15 was reviewed and negative for effusion -defer repeat tap for now Severe protein caloric malnutrition: BMI 17.6. - Cont TPN until feeding tube is functioning prealbumin has fallen despite TPN Mild transaminitis: may be from TPN. CT reassuring Urinary Pseudomonas colonization: no tx per ID Right tib/fib fracture: WBAT. FU with Dr. Rose' group in 3 months. RN to assist with ROM exercises for contractures Subacute sup/inf pubic ramus fracture: supportive care proph: lmwh code: DNR Subjective: case d/w dr hatch. all MD notes from last couple days rec hospice. RN notes pt crying/moaning unless getting 1 mg IV dilaudid q2 Objective: Vital Signs Temp Pulse Resp BP Pulse Ox 37.1 C 96 16 168/79 H 98 03/20/17 12:09 03/20/17 12:09 03/20/17 12:09 03/20/17 12:09 03/20/17 12:09 Microbiology 03/09/17 18:37 Gram Stain - Final Knee - Aspirate 03/14/17 15:00 Blood Culture - Final Blood 03/14/17 14:25 Blood Culture - Final Blood Laboratory Results 03/18/17 04:59 03/19/17 04:27 03/19/17 03/20/17 03/21/17 05:59 05:59 05:59 Intake Total 650 1592 Output Total 1750 1100 Balance -1100 492 PT 13.4 SEC (12.0-15.0) 03/08/17 04:45 INR 1.03 (0.83-1.16) 03/08/17 04:45 - Physical Exam Constitutional: No no apparent distress, No appears nourished, No not in pain Eyes: PERRL, anicteric sclera Ears, Nose, Mouth, Throat: moist mucous membranes, hearing normal Cardiovascular: regular rate and rhythym, no murmur, rub, or gallop Respiratory: no respiratory distress Gastrointestinal: other (excoriated skin around g tube) Genitourinary: no bladder fullness Skin: warm, normal color, pressure ulcer Musculoskeletal: full muscle strength Neurologic: No AAOx3 ICD10 Worksheet Patient Problems: Problems Problem Status Onset Dehydration Acute Hypokalemia Acute Hypoxia Acute Open abdominal wall wound Acute PEG tube malfunction Acute Pneumonia Acute UTI (urinary tract infection) Acute VRE (vancomycin-resistant Enterococci) Acute ~02/07/17
[2017-03-20] MEDS: VANCOMYCIN 500 MG in D5W 100 ML IV SCH (13:37)
[2017-03-20] MEDS: fentaNYL 25 MCG PATCH TD SCH (16:34)
[2017-03-20] MEDS: morphINE 10 MG/0.5 ML UDSYR SL PRN (17:55)
[2017-03-20] MEDS: HALOPERIDOL LACT 5 MG/ML INJ IVP PRN (20:35)
[2017-03-21] MEDS: HALOPERIDOL LACT 5 MG/ML INJ IVP PRN ×4 (01:19→20:14)
[2017-03-21] MEDS: HYDROmorphONE/DILAUDID 1 MG/ML SYR IVP PRN ×6 (01:19→18:21)
[2017-03-21] MEDS: LORazepam 2 MG/ML INJ IVP SCH ×3 (08:43→21:43)
[2017-03-21] MEDS: FLUTICASONE HFA 44 MCG MDI IH SCH (09:27)
--- NOTE | 2017-03-21 11:22 | HOSPPROG ---
Hospitalist Progress Note Assessment/Plan: 56 yo F w abdominal wall abscess 2/2 g tube; prolonged and complex hospitalization plan of care: long conversation w family re: dismal neurologic prognosis, multiple active medical issues, poor nutritional status and ongoing, minute to minute suffering. patient has a had a fair amount of tragedy and suffering in her life. mother understands situation, unwilling to make decision today until she spoke w more family members. patient is currently hospice status TPN, abx, IVF abd labs have been dc'd CM pursuing inpatient hospice placement no word from mother today Subjective: uncomfortable unless medicated. per nursing report, mother called floor last night, angry, yelling that we were " killing her" notably the mother of that patient could not/would not participate in final decision making regarding transtion to hospice care. the patient's adult children decidied on hospice Objective: Vital Signs Temp Pulse Resp BP Pulse Ox 37.4 C 83 16 106/83 H 92 03/21/17 08:00 03/21/17 09:35 03/21/17 09:35 03/20/17 20:00 03/21/17 09:35 Microbiology 03/09/17 18:37 Gram Stain - Final Knee - Aspirate 03/13/17 14:02 Blood Culture - Final Blood Staphylococcus Epidermidis Blood Panel (PCR) - Final Staph Coagulase Negative Laboratory Results 03/18/17 04:59 03/19/17 04:27 03/20/17 03/21/17 03/22/17 05:59 05:59 05:59 Intake Total 1592 Output Total 1100 1300 Balance 492 -1300 PT 13.4 SEC (12.0-15.0) 03/08/17 04:45 INR 1.03 (0.83-1.16) 03/08/17 04:45 - Physical Exam Constitutional: no apparent distress, No cachectic Eyes: PERRL, anicteric sclera Ears, Nose, Mouth, Throat: No moist mucous membranes Cardiovascular: regular rate and rhythym, no murmur, rub, or gallop, No tachycardia Respiratory: no respiratory distress Gastrointestinal: normoactive bowel sounds, soft, non-tender abdomen Genitourinary: no bladder fullness Skin: warm Musculoskeletal: other (dehisced surgical wound R tibia) Neurologic: AAOx3, sensation intact bilaterally Psychiatric: interacting appropriately ICD10 Worksheet Patient Problems: Problems Problem Status Onset Dehydration Acute Hypokalemia Acute Hypoxia Acute Open abdominal wall wound Acute PEG tube malfunction Acute Pneumonia Acute UTI (urinary tract infection) Acute VRE (vancomycin-resistant Enterococci) Acute ~02/07/17
[2017-03-21] MEDS: ACETAMINOPHEN 650 MG SUPP PR PRN (22:52)
[2017-03-22] MEDS: HYDROmorphONE/DILAUDID 1 MG/ML SYR IVP PRN ×2 (05:10→16:20)
[2017-03-22] MEDS: ACETAMINOPHEN 650 MG SUPP PR PRN ×2 (05:12→11:25)
--- NOTE | 2017-03-22 07:52 | SOAPPROG ---
SOAP Progress Note Assessment/Plan: Assessment: TIB/FIB fx s/p ORIF with wound dehiscence. Family (by report) has elected hospice care and nutrition and antibiotics have been discontinued. If status were to change, amputation would be likely course with high risk of wound complications given nutritional status. Plan: Ortho to sign off unless notified. Continue topical wound care with wet to dry dressing changes to area of dehiscence. 03/15/17 07:41 03/22/17 07:47 Subjective: No change, Appreciate hospitalist note clarifying hospice care. Objective: Vital Signs Temp Pulse Resp BP Pulse Ox 39.0 C H 101 H 16 137/77 H 87 L 03/22/17 05:18 03/21/17 21:40 03/21/17 21:40 03/21/17 21:40 03/21/17 21:40 Microbiology 03/09/17 18:37 Gram Stain - Final Knee - Aspirate 03/13/17 14:02 Blood Culture - Final Blood Staphylococcus Epidermidis Blood Panel (PCR) - Final Staph Coagulase Negative Laboratory Results 03/18/17 04:59 03/19/17 04:27 03/21/17 03/22/17 03/23/17 05:59 05:59 05:59 Intake Total 0 Output Total 1300 550 Balance -1300 -550 PT 13.4 SEC (12.0-15.0) 03/08/17 04:45 INR 1.03 (0.83-1.16) 03/08/17 04:45 Resting comfortably on Dilaudid. Wound dehisced aver hardware on rt leg. ICD10 Worksheet Patient Problems: Problems Problem Status Onset Dehydration Acute Hypokalemia Acute Hypoxia Acute Open abdominal wall wound Acute PEG tube malfunction Acute Pneumonia Acute UTI (urinary tract infection) Acute VRE (vancomycin-resistant Enterococci) Acute ~02/07/17
[2017-03-22] MEDS: LORazepam 2 MG/ML INJ IVP SCH (10:19)
[2017-03-22] MEDS ORDERED: LORazepam 2 MG/ML INJ IVP PRN (11:26)
--- NOTE | 2017-03-22 13:11 | SOAPPROG ---
SOAP Progress Note Assessment/Plan: Assessment: NO REAL CHANGE TODAY Plan:CONTINUE WOUND CARE 02/27/17 13:16 02/28/17 13:15 WOUND STABLE/ AFEBRILE/ CXR SHOWS BASILAR ATELECTASIS/ SLOWLY IMPROVING 03/02/17 10:13 AFEBRILE/WOUND SLOWLY IMPROVING/SEEMED MORE COMFORTABLE TODAY 03/15/17 21:30 Wound is dramatically improved but she still continues to have leakage at some times/peristomal skin is in good shape now His unclear why she would have persistent leaks around her G-tube unless it is not being pulled up snugly/ Will get a upper GI evaluation to be sure her Polaris is not obstructed to help of rule out other etiologies for leakage around her G-tube 03/19/17 15:45 DIFFICULT SITUATION PERSISTS/PATIENT NOW WITH EXPOSED HARDWARE IN HER RIGHT LEG AFTER TIBIAL ORIF/STILL APPARENTLY LEAKING FROM HER G-TUBE BUT HAS NOT HAD A GASTRIC STUDY YET MAY NEED BK AMPUTATION TO RESOLVE THE ISSUE IN HER RIGHT LEG VERSUS SIMPLE HARDWARE REMOVAL/PROBABLY WILL NEED TO BE CHANGED TO A J-TUBE IF WE CANNOT CONTROL THE LEAKAGE FROM HER G-TUBE/STILL SHOULD HAVE A GASTRIC EMPTYING TEST TO RULE OUT OBSTRUCTION OF THE G TUBE 03/22/17 13:11 No real change in her situation still with an open wound on her right leg/and difficulties with her G-tube/family has elected hospice care and she should be transferring today Objective: Vital Signs Temp Pulse Resp BP Pulse Ox 37.6 C 93 20 141/73 H 90 L 03/22/17 12:59 03/22/17 12:59 03/22/17 12:59 03/22/17 08:30 03/22/17 12:59 Microbiology 03/09/17 18:37 Gram Stain - Final Knee - Aspirate 03/13/17 14:02 Blood Culture - Final Blood Staphylococcus Epidermidis Blood Panel (PCR) - Final Staph Coagulase Negative Laboratory Results 03/18/17 04:59 03/19/17 04:27 03/21/17 03/22/17 03/23/17 05:59 05:59 05:59 Intake Total 0 Output Total 1300 550 Balance -1300 -550 PT 13.4 SEC (12.0-15.0) 03/08/17 04:45 INR 1.03 (0.83-1.16) 03/08/17 04:45 ICD10 Worksheet Patient Problems: Problems Problem Status Onset Dehydration Acute Hypokalemia Acute Hypoxia Acute Open abdominal wall wound Acute PEG tube malfunction Acute Pneumonia Acute UTI (urinary tract infection) Acute VRE (vancomycin-resistant Enterococci) Acute ~02/07/17
--- NOTE | 2017-03-22 17:14 | HOSPPROG ---
Hospitalist Progress Note Assessment/Plan: # ABDOMINAL ABSCESS S/P DRAINAGE # DEHISCENCE OF ORTHOPEDIC WOUND WITH EXPOSED HARDWARE # ENCEPHALOPATHY At present she remains extremely debilitated, not really able to communicate, immobile, and with very poor prognosis for meaningful recovery. Her family has met apparently with hospice and has chosen to have her go to hospice care. We are providing palliative care here now and she appears on my exam to be reasonably comfortable. It sounds like logistic issues will be taken care of overnight and she will be able to transfer to hospice care likely tomorrow. SUBJECTIVE: she is awake and makes eye contact but not able to communicate to me meaningfully OBJECTIVE: vitals: having fevers but otherwise stable vitals exam: appears comfortable, in no distress skin pale warm dry resps easy abd soft nondistended and as best I can assess nontender Objective: Vital Signs Temp Pulse Resp BP Pulse Ox 37.6 C 93 20 141/73 H 90 L 03/22/17 12:59 03/22/17 12:59 03/22/17 12:59 03/22/17 08:30 03/22/17 12:59 Microbiology 03/09/17 18:37 Gram Stain - Final Knee - Aspirate Laboratory Results 03/18/17 04:59 03/19/17 04:27 03/21/17 03/22/17 03/23/17 06:59 06:59 06:59 Intake Total 0 Output Total 1300 550 Balance -1300 -550 PT 13.4 SEC (12.0-15.0) 03/08/17 04:45 INR 1.03 (0.83-1.16) 03/08/17 04:45 ICD10 Worksheet Patient Problems: Problems Problem Status Onset Dehydration Acute Hypokalemia Acute Hypoxia Acute Open abdominal wall wound Acute PEG tube malfunction Acute Pneumonia Acute UTI (urinary tract infection) Acute VRE (vancomycin-resistant Enterococci) Acute ~02/07/17
[2017-03-23] MEDS: HYDROmorphONE/DILAUDID 1 MG/ML SYR IVP PRN ×3 (01:11→05:08)
[2017-03-23] MEDS: morphINE 10 MG/0.5 ML UDSYR SL PRN (02:50)
[2017-03-23] MEDS: DIAZEPAM 10 MG/2 ML SYR IVP PRN (03:51)
[2017-03-23 08:34] VITALS: BP 134/83; TEMP 99.2
[2017-03-23 09:27] VITALS: PULSE 99; RESP 24; O2SAT 95
--- NOTE | 2017-03-23 12:28 | PDIAF ---
- Diagnosis Diagnosis: leg wound dehiscenc/infection, abd wall abscess, chornic encephalopathy, Code Status: Do Not Resuscitate - Medication Management Discharge Medications: Medications to Continue on Transfer Acetaminophen [Tylenol 325mg (*)] 650 mg TUBE Q6 PRN 02/07/17 [Last Taken Unknown] Cyclobenzaprine [Flexeril 10 MG (*)] 10 mg TUBE HS 02/07/17 [Last Taken 02/01/17 ] Fluticasone Hfa 44 Mcg [Flovent 44 MCG Hfa MDI (*)] 1 puffs IH BID 02/07/17 [ Last Taken 02/02/17] Ondansetron Odt [Zofran Odt 4 mg (*)] 4 mg TUBE Q6 PRN 02/07/17 [Last Taken Unknown] Polyethylene Glycol 3350 [Miralax 17 gm (*)] 17 gm TUBE BID 02/07/17 [Last Taken 02/02/17] clonazePAM [klonoPIN (*)] 1 mg TUBE BID PRN 02/07/17 [Last Taken Unknown] hydrOXYzine HCL [hydrOXYzine HCL (RX)] 25 mg TUBE Q6H PRN 02/07/17 [Last Taken Unknown] oxyCODONE IR [Oxycodone Ir (*)] 10 mg TUBE DAILY PRN 02/07/17 [Last Taken Unknown] traZODone [traZODONE 50MG (*)] 50 mg TUBE HS 02/07/17 [Last Taken 02/01/17] Ipratropium/Albuterol [Duoneb (*)] 3 ml IH Q6HRS PRN #0 deyvial 03/22/17 [Last Taken Unknown] LORazepam [Ativan (*)] 1 mg SL Q6 PRN #30 tab 03/22/17 [Last Taken Unknown] Sodium Hypochlorite [Dakins 1/4 Strength] 1 ml TP PRN PRN #0 btl 03/22/17 [Last Taken Unknown] fentaNYL [Duragesic 25 MCG Patch (*)] 25 mcg TD Q72H #10 patch 03/22/17 [Last Taken Unknown] morphINE [Roxanol 10 mg/0.5 ml oral soln (*)] 5 mg SL Q2HRS PRN #30 ml 03/22/17 [Last Taken Unknown] Discharge Medications: Refer to the Discharge Home Medication list for PRN reason. - Orders Services needed: Registered Nurse, Certified Sueding And Buffing Machine Operator, Master Health Physics Technician Diet Recommendation: no restrictions on diet Diet Texture: Regular Texture Diet Additional: Palliative/Hospice Care - Follow Up Care Current Providers and Referrals: Patient,NotPresent [Primary Care Provider] - As per Instructions
--- NOTE | 2017-03-23 12:41 | PDDCSUM ---
Discharge Summary Discharge Summary: DISCHARGE DIAGNOSES: -ongoing wound infection with dehiscence of prior surgical site from a tib-fib fracture with exposed hardware -severe protein calorie malnutrition is likely cause of dehiscence of prior surgical wound site -abdominal wall abscess at feeding tube site -subacute appearing inferior pubic ramus fracture -acute on chronic encephalopathy -history of closed head injury CONSULTANTS: Dr. Ramos Mar PROCEDURES: Incision and drainage of abdominal wall abscess HOSPITAL COURSE SUMMARY: This patient who is chronically debilitated from previous severe closed head injury, bed-bound, was sent to the ER for hydration with D dehydration diagnosed elsewhere, as well as drainage of fluid from around her feeding tube. She was found to have an abdominal wall abscess which was incised and drained. She had persistent fever and was found to have dehiscence of a prior surgical wound. She had a tib-fib fracture operated on with hardware elsewhere approximately 3 months prior to this admission. This wound dehisced and was infected. Despite ongoing antibiotic treatment she had persistent fevers and infection at this site. The surgeon who did her operation 3 months prior is not on staff at this hospital and does not have privileges here. She was seen by Dr. Mar in consultation here. In addition the patient was found to have a subacute appearing inferior pubic ramus fracture. At baseline the patient is situation is that she is bed-bound with contractures and minimally communicative not really verbal. Here in the hospital she was treated with antibiotics, nutritional support, wound care, respiratory therapies , and other supportive care. Despite all these efforts the patient however did not improve and in fact continued to have fevers and seemed actually to be getting worse. She was seen in consultation by Orthopedics, Infectious Disease , and nutrition as. Looking her situation there were options presented for removal of hardware or BKA. However if her hardware removed her nutritional status was bad enough that it seemed unlikely she would be able to heal this belly dehisced wound over exposed tibia. Additionally with a BKA the patient was felt to be at very high risk of being unable to heal that. There was significant anesthetic risks as well. Eventually with discussion of the above situation was family involved decisions were made to not perform any surgeries. As the patient was not progressing in any way further discussions about care decisions were made and eventually the family came to choosing palliative care and the patient has now been accepted into hospice care. PENDING TEST RESULTS: None MEDICATION CHANGES: At this time her medications really are only palliative medications including antianxiety, pain relief medicines, laxative and anti emetics, etc FOLLOW-UP PLAN: She will be transferred today back to her living situation at [place] and be under the care of local hospice organization Greater than 35 minutes bedside and care coordination time today
--- NOTE | 2017-03-26 11:10 | PQFORM ---
PHYSICIAN QUERY FORM Needs Your Response This query form is being sent to you to assure this patient record is coded properly. Please respond to the question below: WIPING RAG WASHER QUESTION: Dear Dr. Casillas, In reviewing this patients medical chart the diagnosis of UTI with chronic dwelling [place] has been stated. Documented in the H&P report patient has "possible catheter associated urinary tract infection' patient had a positive urinalysis and started on Zosyn. Also, stated in the Hospitalist progress notes and the Infectious disease progress notes dated from 02/08-03/14 patient had the diagnosis of "complicated UTI secondary to pseudomonas." After study, should the diagnosis of 'Catheter associated UTI' be included in the Discharge Summary? Yes No unable to determine Other more appropriate diagnosis Thank you GIAN Song HIM/Coding Dept. [phone] INSTRUCTIONS FOR RESPONSE: Answer question by clicking on the "Edit Document" button. Move cursor to area below the stars. When complete, hit "Save." Click on the "Sign" button, then click "Sign" again. Type in your PIN and hit "Enter." No, patient was not felt to have ANY UTI, her initial fevers may have been from abd abscess but ongoing fevers were either from her leg wound or other unidentifiable source [id number]
--- NOTE | 2017-03-26 11:24 | PQFORM ---
PHYSICIAN QUERY FORM Needs Your Response This query form is being sent to you to assure this patient record is coded properly. Please respond to the question below: COMMUNICATION ARTS LECTURER QUESTION: Dear Dr. Casillas, Patient presented to the ER with lower lobe pneumonia treated with Zosyn. CT exam dated 03/13,02/14,02/07,02/08 states diagnosis of 'left lower lobe pneumonia. Also, X-ray exam dated 02/07 showed left lower lobe pneumonia. The Hospitalist progress notes and the Infectious Disease progress notes dated 02/09- 02/26 state the diagnosis of 'possible aspiration and Healthcare associated pneumonia,' continued on Zosyn. After study, should the diagnosis of 'aspiration pneumonia' be included in the Discharge Summary? Yes No Unable to determine Other more appropriate diagnosis Thank you GIAN Song HIM/Coding Dept. [phone] INSTRUCTIONS FOR RESPONSE: Answer question by clicking on the "Edit Document" button. Move cursor to area below the stars. When complete, hit "Save." Click on the "Sign" button, then click "Sign" again. Type in your PIN and hit "Enter." No, patient was not felt to have pneumonia, but to have atelectasis and other causes of fever MTDD
== END 2017-03-23 15:16 | disposition hospice, home (50) | DRG 907 ==
LOC: EDUNIT# → F3E 23:30
PROVIDERS: ADMIT Internal Medicine; ATTEND Internal Medicine
PROC: 0DH63UZ Insertion of Feeding Device into Stomach, Percutaneous Approach (ICD-10-PCS; 2017-02-07)
PROC: 0DP67UZ Removal of Feeding Device from Stomach, Via Natural or Artificial Opening (ICD-10-PCS; 2017-02-07)
PROC: 0D163J4 Bypass Stomach to Cutaneous with Synthetic Substitute, Percutaneous Approach (ICD-10-PCS; 2017-02-09)
PROC: 02HV33Z Insertion of Infusion Device into Superior Vena Cava, Percutaneous Approach (ICD-10-PCS; 2017-02-13)
PROC: 0S9C3ZX Drainage of Right Knee Joint, Percutaneous Approach, Diagnostic (ICD-10-PCS; principal; 2017-03-09)
DX: T81.33XA Disruption of traumatic injury wound repair, initial encounter (principal); E43 Unspecified severe protein-calorie malnutrition; G93.49 Other encephalopathy; T81.4XXA Infection following a procedure, initial encounter; K94.22 Gastrostomy infection; L02.211 Cutaneous abscess of abdominal wall; S32.599A Other specified fracture of unspecified pubis, initial encounter for closed fracture; F11.20 Opioid dependence, uncomplicated; J98.11 Atelectasis; Z68.1 Body mass index [BMI] 19.9 or less, adult; E86.0 Dehydration; E87.6 Hypokalemia; Z87.820 Personal history of traumatic brain injury; Z74.01 Bed confinement status; G89.29 Other chronic pain; Z66 Do not resuscitate; B96.5 Pseudomonas (aeruginosa) (mallei) (pseudomallei) as the cause of diseases classified elsewhere; B95.2 Enterococcus as the cause of diseases classified elsewhere; Z16.21 Resistance to vancomycin; Z16.29 Resistance to other single specified antibiotic; L89.891 Pressure ulcer of other site, stage 1
CPT/HCPCS: 84134-90; 92507-GN; 92523-GN; 92526-GN; 92610-GN; 92611-GN; 96365; 97110-GO; 97110-GP; 97112-GO; 97112-GP; 97163-GP; 97167-GO; 97530-GO; 97530-GP; 97535-GO; C1751; C1769; J0360; J0696; J1170; J1650; J2060; J2248; J2405; J2543; J2704; J2997; J3010; J3370; Q9967